=== PATIENT | female | born 1990 | race Caucasian/White ===

== ENCOUNTER 2017-03-04 13:10 | Emergency (ER) | payer OTHER ==
[~2017-03-04] VITALS: Ht 170.2 cm; Wt 81.1 kg
[~2017-03-04 13:10] MED LIST: LEVO1IUD INT UTER
[2017-03-04 13:20] VITALS: TEMP 37.5; Ht 170.2 cm; Wt 81.1 kg
[2017-03-04] MEDS ORDERED: MULT-506 PO (14:26)
[2017-03-04] MEDS ORDERED: FOLI1TAB7 PO (14:26)
[2017-03-04] MEDS ORDERED: IVER5TAB PO (14:55)
--- NOTE | 2017-03-04 14:56 | EMERGENCY ROOM VISIT NOTE ---
History First contact with patient: 14:18 Chief Complaint: RASH Stated Complaint: SKIN RASH ON ABD History of Present Illness The patient is a 26 year old female who presents to the Emergency Room with complaints of a rash on her abdomen. The patient states that she first noticed this this morning. She reports that the area is itchy and rates her discomfort a 1/10. She was seen at [facility] and told to come here for evaluation of a parasitic infection. The patient denies recent travel outside of the country, but did recently travel to [place] and [place]. She has 2 cats at home but states they are indoor cats. She was working outside yesterday, but denies walking barefoot outside. She denies any new medications or environmental exposures. Review of Systems A complete 10 point review of systems was reviewed with the patient with pertinent positives and negatives as per history of present illness. All else were negative. Past Medical/Surgical History Medical Problems: (1) No Known Active Medical Problems Family History Patient reports no known family medical history. Social History Smoking Status: Never Smoker Marital Status: single Occupation Status: employed Current/Historical Medications Scheduled Folic Acid (Folvite), 1 MG PO DAILY Ivermectin (Ivermectin), 6 TABS PO DAILY Multivitamin (Multivitamin), 1 TAB PO DAILY Physical Exam Vital Signs Date Time Temp Pulse Resp B/P (MAP) Pulse Ox O2 Delivery O2 Flow Rate FiO2 03/04/17 14:57 63 16 115/61 98 Room Air 03/04/17 13:20 37.5 80 18 123/78 97 Room Air Physical Exam VITALS: Vitals are noted on the nurse's note and reviewed by myself. Vital signs stable. GENERAL: This is a 26-year-old female, in no acute distress, nondiaphoretic, well-developed well-nourished. SKIN: There is a mildly erythematous, raised serpiginous lesion to the left lower abdomen which measures approximately 4 cm. NEURO: Patient was alert and oriented to person place and time. Medical Decision & Procedures Medical Decision Differential diagnosis includes insect bite, cutaneous larva migraines, allergic reaction, contact dermatitis, among others. The patient is a 26-year-old female who presents today with a serpiginous rash on the left lower abdomen. The patient does not have a clear exposure for CLM, however the appearance is very concerning for this and I do feel she should be treated with a dose of Ivermectin. She will be treated with a one-time dose and was encouraged to follow-up with her primary care provider for a recheck this week to see if she will need any additional treatment. She verbalized understanding of this assessment and treatment plan and was discharged home in good condition. Based on the patient's presentation and work up, I feel the patient is stable for outpatient treatment. The patient was educated to return to the emergency department for any worsening of their current condition or new/concerning symptoms. She will follow up with her PCP. Medication Reconcilliation Current Medication List: was personally reviewed by me Blood Pressure Screening Patient's blood pressure: Normal blood pressure Impression Primary Impression: Cutaneous larva migrans Departure Information Dispostion Home / Self-Care Condition GOOD Prescriptions Ivermectin (Ivermectin) 3 Mg Tab 6 TABS PO DAILY for 1 Day, #6 TABS Prov: Sanam Washburn ., CELESTINA 03/04/17 Referrals Colten Kramer DO (PCP) Patient Instructions [facility] Additional Instructions Take the ivermectin as a one-time dose today. Follow-up with Dr. Kramer this week for a recheck. Return to the emergency department with any worsening or new/concerning symptoms.
[2017-03-04 14:57] VITALS: BP 115/61; PULSE 63; O2SAT 98
== END 2017-03-04 15:05 | disposition home or self-care (01) ==
LOC: C.EDB 13:11
DX: B76.9 Hookworm disease, unspecified (principal)

== ENCOUNTER → 2017-10-21 | Outpatient (CLI) | payer OTHER ==
[~2017-10-21] MED LIST changes: +FOLI1TAB8 PO; +GADAVIST IV PRN; +IVER5TAB PO; -LEVO1IUD INT UTER; +MULT-506 PO
--- NOTE | 2017-10-21 12:35 | DIAGNOSTIC IMAGING REPORT ---
R INJECTION SHOULDER PRE MRI FLUOROSCOPY TIME: 14 seconds CLINICAL HISTORY: 27 years-old Female with RIGHT SHOULDER ARTHROGRAM PRE MRI. Acute right shoulder pain with recent injury PROCEDURE: After obtaining written informed consent, the patient was placed supine on the fluoroscopy table. A suitable site for needle insertion was marked using fluoroscopic guidance. The right shoulder was prepped and draped in the usual sterile fashion. 1% lidocaine was used for skin, subcutaneous and deep soft tissue anesthesia. Under intermittent fluoroscopic guidance, a 22 gauge 1.5 inch needle was inserted into the right glenohumeral joint. A total of 14 cc of one-to-one mixture of dilute Magnevist (0.1 cc in 10 cc saline) and Optiray 300 were injected. The needle was then removed. There were no apparent complications. The patient was transported to MR for further imaging. IMPRESSION: Fluoroscopic-guided right shoulder arthrogram without immediate complication. Total injected volume was 14 cc. MR portion of the examination will be dictated separately. The above report was generated using voice recognition software. It may contain grammatical, syntax or spelling errors. Electronically signed by: Chente Segovia M.D. 10/21/2017 12:34 PM Dictated Date/Time: 10/21/2017 12:32 PM
--- NOTE | 2017-10-21 13:08 | DIAGNOSTIC IMAGING REPORT ---
R UPPER EXT JOINT WITH CLINICAL HISTORY: 27 years-old Female presenting with RIGHT SHOULDER INSTABILITY. TECHNIQUE: Multisequence, multiplanar MR imaging of the right shoulder was performed after the administration of intra-articular contrast. IV contrast: None. COMPARISON: None. FINDINGS: Localizer images: Unremarkable. Bone marrow: Normal bone marrow signal intensity. No bony edema. Articular cartilage: Articular cartilage preserved. Labrum: Blunting and irregularity of the inferior labrum at the level of 6:00. This does not significantly extend anteriorly or posteriorly. No other labral abnormality to suggest focal tear. Biceps and triceps tendons: Long head of the biceps tendon intact, including the biceps-labral complex. Long head of the biceps well seated in the intertubercular groove. Short head of the biceps tendon intact. Long head of the triceps tendon intact. Rotator cuff: Supraspinatus tendon intact. Infraspinatus tendon intact. Teres minor tendon intact. Subscapularis tendon intact. Acromioclavicular joint: Acromioclavicular joint intact. No significant degenerative change. No evidence of an os acromiale. No significant fluid in the subacromial-subdeltoid bursa. Shoulder joint effusion: Expected distention of the glenohumeral joint with intra-articular contrast. No evidence of stripping of the joint capsule. Muscle: Normal muscle bulk and muscle signal intensity. Superficial soft tissue: No subcutaneous edema. IMPRESSION: Blunting and irregularity of the inferior labrum at 6:00 without significant extension anteriorly or posteriorly. This could suggest chronic deformity from prior injury. No convincing evidence of a focal labral tear or other soft tissue abnormality. Electronically signed by: Mckinley Dumont M.D. 10/21/2017 1:07 PM Dictated Date/Time: 10/21/2017 1:00 PM
== END | disposition home or self-care (01) ==
LOC: C.MRIBC 10:48
PROVIDERS: ATTEND Orthopaedic Surgery Sports Medicine
DX: M25.311 Other instability, right shoulder (principal)

== ENCOUNTER → 2018-02-21 | Outpatient (CLI) | payer OTHER ==
[~2018-02-21] MED LIST changes: -GADAVIST IV PRN
== END | disposition home or self-care (01) ==
LOC: C.PAPS 14:23
PROVIDERS: ATTEND Obstetrics & Gynecology
DX: Z01.419 Encounter for gynecological examination (general) (routine) without abnormal findings (principal)

== ENCOUNTER 2019-02-20 07:13 | Inpatient (IN) ==
[2019-02-20] MEDS ORDERED: OXYTOCIN 30 UNITS/500 ML BAG IV PRN ×2 (07:44→12:20)
[2019-02-20] MEDS ORDERED: miSOPROStol 50 MCG TAB SL ONE (07:53)
[2019-02-20 08:04] LABS: Hematocrit (blood only) 35.6 % (37-47); Hemoglobin 11.8 g/dL (12.0-16.0); Mean Corpuscular Volume 91.8 fL (80-100); Mean Platelet Volume 9.7 fL (7.4-10.4); Platelet Count 237 K/uL (130-400); RDW Coefficient of Variation 13.7 % (11.5-14.5); RDW Standard Deviation 44.6 fL (36.4-46.3); Red Blood Count 3.88 M/uL (4.2-5.4); White Blood Count 8.57 K/uL (4.8-10.8)
[2019-02-20] MEDS: LACTATED RINGER'S 1,000 ML IV PRN ×3 (08:26→18:14)
[2019-02-20] MEDS ORDERED: CALCIUM CARBONATE 500 MG CHEWABLE TAB ONE (08:45)
[2019-02-20 08:46] LABS: Mean Corpuscular Hgb Conc 33.1 g/dL (32-36)
--- NOTE | 2019-02-20 09:00 | History & Physical Report ---
Date of Service February 20, 2019 Assessment & Plan (1) Supervision of normal first : 28yo at 41.1 weeks GA. IOL for late term . 1. Fetus: Cat 1 2: Labor: Cervix closed with rare contractions. Will start cervical ripening with Cytotec with augmentation as indicated following 3. Vitals: Stale 4. GBS: neg 5. Rh pos History of Present Illness Primary Care Provider: Colten Kramer 28yo at 41.1 weeks GA. IOL for late term . Reporting Occasional contractions. Denies LOF, VB. Good FM. 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 Beliefs That Will Affect Care: None marital status: Current Living Situation: Spouse Other Information That Helps Us Care for You: No Feels Safe at Home: Yes Safety Concerns: Feels Safe At This Time Smoking Status: Never smoker Do You Dip or Chew Tobacco: No ; Second Hand Exposure: No ; Hx Alcohol Use: No Hx Substance Use: No Physical Exam Gastrointestinal (Abdomen): normal bowel sounds, soft, nontender, no hepatosplenomegaly Genitourinary: Manual OB Exam: + cervical dilation (Closed), + cervical effacement 30% and + station high OB Exam Monitor Tracing: + external FHT monitor used, + external uterine monitor used and + category I Results & Data Vital Signs (Past 12 Hours) Vital Signs Temp Pulse Resp BP 02/20/19 08:52 90 130/85 02/20/19 08:39 89 123/88 02/20/19 08:22 95 H 124/82 02/20/19 07:56 90 131/79 02/20/19 07:37 100 H 127/80 02/20/19 07:36 36.8 C 18
[2019-02-20] MEDS ORDERED: CALCIUM CARBONATE 500 MG CHEWABLE TAB PO PRN (09:51)
--- NOTE | 2019-02-20 12:19 | Labor Progress Brief Note ---
Date of Service February 20, 2019 Subjective Reason For Note: Routine Evaluation patient noting some occas ctx since cytotec. nothing regular. palpably mild per nurse. Assessment & Plan (1) Post term over 40 weeks: (2) Obesity during : will see how bai helps with mechanical dilation. start pitocin. pt agreeable with plan. categ 1 fetus. Physical Exam Constitutional: WD/WN, vitals as above Genitourinary: Manual OB Exam: + cervical dilation (closed, ext os fingertip), + cervical effacement (long) and + station high OB Exam Monitor Tracing: + external FHT monitor used (135 mod variability reactive), + external uterine monitor used (q1-3) and + category I Procedure: given no cx change, rec bai balloon and pitocin and pt agrees. spec placed. cx grasped on anterior lip with ring forcep. bai placed through cx and balloon inflated with 40cc sterile water. spec removed. bai taped to leg. pt ruben well. Results & Data Vital Signs (Past 12 Hours) Vital Signs Temp Pulse Resp BP 02/20/19 12:07 96 H 138/94 02/20/19 11:59 98.2 F 18 02/20/19 09:22 87 132/76 02/20/19 09:08 85 136/78 02/20/19 08:52 90 130/85 02/20/19 08:39 89 123/88 02/20/19 08:22 95 H 124/82 02/20/19 07:56 90 131/79 02/20/19 07:37 100 H 127/80 02/20/19 07:36 98.2 F 18
[2019-02-20] MEDS ORDERED: fentaNYL citrate 100 MCG/2 ML VIAL ONE ×2 (14:45→15:33)
[2019-02-20] MEDS ORDERED: ePHEDrine sulfate 50 MG/ML AMP ONE ×2 (14:45→15:33)
[2019-02-20] MEDS ORDERED: BUPIVACAINE 0.25% 30 ML VIAL ONE ×2 (14:45→15:33)
[2019-02-20] MEDS ORDERED: fentaNYL 2MCG/ML ROPIV 1.25MG/ML 100 ML BAG EPI ONE ×2 (14:46→15:33)
--- NOTE | 2019-02-20 14:48 | Labor Progress Brief Note ---
Date of Service February 20, 2019 Subjective Reason For Note: Routine Evaluation pt noting pain with ctx and request epidural. did feel leak initially after bai placed but no longer. nothing on her pads Assessment & Plan (1) Post term over 40 weeks: (2) Unfavorable cervix in term : bai in place, ctx regular but not palpably strong. pt requests epidural. after comfortable will consider pitocin. pt aware and agreeable. wants epidural now. Physical Exam Constitutional: WD/WN, vitals as above Genitourinary: Manual OB Exam: + cervical dilation (bai balloon in place, no obvious leak. cx ext os 1+ ), + cervical effacement 50% and + station high OB Exam Monitor Tracing: + external FHT monitor used (140 mod variability categ 1), + external uterine monitor used (q2) and + category I Results & Data Vital Signs (Past 12 Hours) Vital Signs Temp Pulse Resp BP 02/20/19 14:00 98.4 F 18 02/20/19 13:48 90 134/84 02/20/19 13:17 88 123/76 02/20/19 12:49 87 137/86 02/20/19 12:07 96 H 138/94 02/20/19 11:59 98.2 F 18 02/20/19 09:22 87 132/76 02/20/19 09:08 85 136/78 02/20/19 08:52 90 130/85 02/20/19 08:39 89 123/88 02/20/19 08:22 95 H 124/82 02/20/19 07:56 90 131/79 02/20/19 07:37 100 H 127/80 02/20/19 07:36 98.2 F 18
[2019-02-20] MEDS ORDERED: NALOXONE HCL 0.4 MG/1 ML VIAL/CARP IV PRN (14:59)
[2019-02-20] MEDS ORDERED: NALBUPHINE HCL INJ 10 MG/ML AMP IV PRN (14:59)
[2019-02-20] MEDS ORDERED: ePHEDrine sulfate 50 MG/ML AMP IV PRN (14:59)
[2019-02-20] MEDS ORDERED: NALOXONE HCL 1 MG in SODIUM CHLORIDE 0.9% 1000ML 1,000 ML IV PRN (14:59)
[2019-02-20] MEDS ORDERED: DiphenhydrAMINE HCL 50 MG/ML VIAL IV PRN (14:59)
[2019-02-20] MEDS ORDERED: ONDANSETRON INJ 2 MG/ML 2 ML VIAL IV PRN (14:59)
--- NOTE | 2019-02-20 15:03 | Anesthesiology Consultation ---
Date of Service February 20, 2019 Assessment & Plan Chart Review Chart Review: Patient NOT seen in Pre Admission Testing and Acceptable Risk for Labor Epidural Consults Requested none ASA ASA2 Proposed Anesthesia Anesthesia Type: Labor Epidural and CSE Risk / Benefits Reviewed With: PT / POA / Parent / Guardian, Accepts Plan and Informed Consent Obtained History Height/Weight Height: 5 ft 7 in Weight: 118.841 kg Allergies Allergy/AdvReac Type Severity Reaction Status Date / Time No Known Allergies Allergy Verified 02/19/19 15:36 Medications Home Medications Medication Instructions Recorded Confirmed Last Taken vit-iron fum-folic ac 1 tab PO DAILY 01/30/19 02/20/19 02/20/19 00:00 [ Vitamin] Active Medications Generic Name Dose Route Start Last Admin Trade Name Freq PRN Reason Stop Dose Admin Lactated Ringer's 1,000 mls @ 125 mls/hr 02/20/19 07:44 02/20/19 14:45 Lr IV 02/22/19 07:43 999 mls/hr .Q8H PRN Infusion L&D Protocol Protocol NPO Date Last Intake of Fluids: 02/20/19 Time Last Intake of Fluids: 13:30 Date Last Intake of Solids: 02/20/19 Time Last Intake of Solids: 06:30 Past Medical History Medical History No known health problems History of breast disorder History of cardiac murmur History of ovarian cyst Exercise / Class Metabolic Activity II 4-5 Yardwork/Stairs/Walk up hill Past Family History Family History Father Dyslipidemia Hypertension Grandfather (Paternal) Bladder cancer Grandmother (Maternal) Colorectal cancer Past Surgical History Surgical History History of wisdom tooth extraction Past Anesthesia History No Hx of Anesthesia Complications and No Family Hx of Anesthesia Complications History of PONV No Hx of PONV and No Hx of Motion Sickness Social History Smoking Status: Never smoker Do You Dip or Chew Tobacco: No Hx Alcohol Use: No Hx Substance Use: No substance use type: does not use Review of Systems no chest pain or sob Physical Exam Vital Signs Last Vital Signs Temp 36.9 C 02/20/19 14:00 Pulse 93 H 02/20/19 15:00 Resp 18 02/20/19 14:00 BP 134/84 02/20/19 13:48 Pulse Ox 95 02/20/19 15:00 ENMT Mouth: no TMJ abnormality Thyromental Distance: > or= 3.5 Finger Breadths Mallampati Class: II Neck normal visual inspection Respiratory normal respiratory effort Auscultation: lungs clear to auscultation bilaterally Cardiovascular Rate/Rhythm: regular rate and regular rhythm Musculoskeletal Spine: normal cervical ROM Neurologic moves all extremities Psychiatric Orientation: alert and oriented x 3 Testing Laboratory Results 02/20/19 07:53
[2019-02-20] MEDS: fentaNYL 2MCG/ML ROPIV 1.25MG/ML 100 ML BAG EPI PRN (22:49)
[2019-02-21] MEDS: LACTATED RINGER'S 1,000 ML IV PRN ×4 (02:19→16:21)
[2019-02-21] MEDS ORDERED: Nursing to Pharmacy Communication ONE (04:20)
[2019-02-21] MEDS ORDERED: BUPIVACAINE 0.25% 30 ML VIAL ONE ×2 (04:49→17:47)
[2019-02-21] MEDS: fentaNYL 2MCG/ML ROPIV 1.25MG/ML 100 ML BAG EPI PRN ×2 (05:14→10:42)
--- NOTE | 2019-02-21 08:37 | Labor Progress Brief Note ---
Date of Service February 21, 2019 Subjective Reason For Note: Routine Evaluation Current Pain Level(1-10): 3 Doing well. Review labor plan. Jade in place Assessment & Plan (1) Post term over 40 weeks: 28yo G1 at 41.1 weeks GA. IOL for post dates 1.Fetus: Cat 1 2. Labor: Pit/Jade. 3. Vitals: WNL 4. GBS neg 5. Rh pos (2) Supervision of normal first : Results & Data Vital Signs (Past 12 Hours) Vital Signs Temp Pulse Resp BP Pulse Ox 02/21/19 08:30 106 H 96 02/21/19 08:27 93 H 116/57 L 02/21/19 08:25 99 H 96 02/21/19 08:20 94 H 96 02/21/19 08:15 103 H 96 02/21/19 08:10 101 H 96 02/21/19 08:05 95 H 96 02/21/19 08:00 87 97 02/21/19 07:55 90 97 02/21/19 07:50 98 H 96 02/21/19 07:45 83 97 02/21/19 07:40 86 95 02/21/19 07:35 85 95 02/21/19 07:30 84 96 02/21/19 07:25 82 96 02/21/19 07:20 88 96 02/21/19 07:15 86 96 02/21/19 07:14 87 118/56 L 02/21/19 07:10 87 97 02/21/19 07:05 94 H 96 02/21/19 07:00 36.7 C 86 20 96 02/21/19 06:55 95 H 97 02/21/19 06:50 86 96 02/21/19 06:45 82 96 02/21/19 06:42 93 H 130/74 02/21/19 06:40 95 H 96 02/21/19 06:35 91 H 94 02/21/19 06:30 85 94 02/21/19 06:28 88 132/77 02/21/19 06:25 90 95 02/21/19 06:20 87 95 02/21/19 06:15 88 95 02/21/19 06:13 88 129/65 02/21/19 06:10 86 95 02/21/19 06:05 85 95 02/21/19 06:00 86 95 02/21/19 05:58 82 16 121/74 02/21/19 05:55 86 95 02/21/19 05:50 82 95 02/21/19 05:45 87 95 02/21/19 05:42 81 118/78 02/21/19 05:40 79 95 02/21/19 05:35 92 H 96 02/21/19 05:30 92 H 96 02/21/19 05:27 101 H 16 107/58 L 02/21/19 05:25 100 H 97 02/21/19 05:20 126 H 109/56 L 94 02/21/19 05:18 105 H 88 L 02/21/19 05:15 93 H 95 02/21/19 05:14 92 H 18 122/62 02/21/19 05:12 80 130/62 02/21/19 05:10 73 130/62 94 02/21/19 05:08 75 127/60 02/21/19 05:06 85 128/61 02/21/19 05:05 77 94 02/21/19 05:04 83 129/63 02/21/19 05:03 92 H 133/66 02/21/19 05:00 96 H 131/83 95 02/21/19 04:55 85 96 02/21/19 04:54 86 129/86 02/21/19 04:50 84 94 02/21/19 04:45 93 H 98 02/21/19 04:40 85 133/86 98 02/21/19 04:35 83 98 02/21/19 04:30 73 95 02/21/19 04:26 92 H 90 02/21/19 04:25 81 95 02/21/19 04:24 80 125/86 02/21/19 04:22 36.8 C 20 02/21/19 04:20 87 94 02/21/19 04:18 89 90 02/21/19 04:15 87 94 02/21/19 04:10 92 H 152/81 H 96 02/21/19 04:05 101 H 97 02/21/19 04:00 90 95 02/21/19 03:55 84 135/85 96 02/21/19 03:50 83 95 02/21/19 03:45 93 H 95 02/21/19 03:40 91 H 129/76 95 08/10/19 03:35 85 95 02/21/19 03:30 97 H 95 02/21/19 03:25 82 95 02/21/19 03:24 83 135/75 02/21/19 03:20 88 95 02/21/19 03:15 91 H 95 02/21/19 03:10 103 H 95 02/21/19 03:09 96 H 18 140/80 02/21/19 03:05 98 H 95 02/21/19 03:00 94 H 95 02/21/19 02:55 93 H 95 02/21/19 02:53 91 H 129/73 02/21/19 02:50 88 94 02/21/19 02:45 84 94 02/21/19 02:40 87 95 02/21/19 02:39 84 128/74 02/21/19 02:35 100 H 96 02/21/19 02:30 86 96 02/21/19 02:25 88 126/77 96 02/21/19 02:20 84 96 02/21/19 02:15 85 96 02/21/19 02:10 87 96 02/21/19 02:08 91 H 123/70 02/21/19 02:05 82 97 02/21/19 02:00 92 H 96 02/21/19 01:55 92 H 98 02/21/19 01:54 77 125/80 02/21/19 01:53 37.0 C 18 02/21/19 01:50 93 H 95 02/21/19 01:45 80 96 02/21/19 01:40 87 97 02/21/19 01:38 87 122/75 02/21/19 01:35 86 96 02/21/19 01:30 85 96 02/21/19 01:25 83 122/75 96 02/21/19 01:20 88 96 02/21/19 01:15 89 96 02/21/19 01:10 82 97 02/21/19 01:09 84 16 113/68 02/21/19 01:05 81 97 02/21/19 01:00 92 H 97 02/21/19 00:55 81 97 02/21/19 00:53 86 16 131/76 02/21/19 00:50 88 97 02/21/19 00:45 84 98 02/21/19 00:40 82 96 02/21/19 00:39 76 133/75 02/21/19 00:35 86 96 02/21/19 00:30 88 95 02/21/19 00:25 78 134/76 96 02/21/19 00:20 76 95 02/21/19 00:15 79 95 02/21/19 00:10 82 96 02/21/19 00:09 78 127/72 02/21/19 00:05 84 96 02/21/19 00:00 85 96 02/20/19 23:55 89 96 02/20/19 23:54 77 131/77 02/20/19 23:50 79 95 02/20/19 23:45 88 94 02/20/19 23:40 80 95 02/20/19 23:39 76 134/73 02/20/19 23:35 93 H 95 02/20/19 23:30 81 95 02/20/19 23:25 82 95 02/20/19 23:23 88 121/67 02/20/19 23:20 79 95 02/20/19 23:15 80 94 02/20/19 23:10 85 95 02/20/19 23:09 80 123/67 02/20/19 23:05 81 95 02/20/19 23:00 78 96 02/20/19 22:55 86 126/77 95 02/20/19 22:50 93 H 95 02/20/19 22:46 36.8 C 18 02/20/19 22:45 86 95 02/20/19 22:40 86 96 02/20/19 22:39 89 121/60 02/20/19 22:35 86 95 02/20/19 22:30 88 95 02/20/19 22:25 87 95 02/20/19 22:24 80 130/82 02/20/19 22:20 88 95 02/20/19 22:15 83 94 02/20/19 22:10 97 H 95 02/20/19 22:08 89 16 134/74 02/20/19 22:05 76 95 02/20/19 22:00 97 H 95 02/20/19 21:55 97 H 96 02/20/19 21:54 80 135/79 02/20/19 21:50 85 97 02/20/19 21:45 99 H 97 08/09/19 21:42 36.9 C 18 02/20/19 21:40 80 94 02/20/19 21:39 90 117/70 02/20/19 21:35 79 95 02/20/19 21:30 85 94 02/20/19 21:25 80 94 02/20/19 21:23 88 112/67 02/20/19 21:20 86 95 02/20/19 21:15 78 94 02/20/19 21:10 81 94 02/20/19 21:09 82 112/69 02/20/19 21:05 99 H 95 02/20/19 21:00 95 H 96 02/20/19 20:55 88 96 02/20/19 20:53 89 126/80 02/20/19 20:50 84 94 02/20/19 20:45 86 95 02/20/19 20:40 88 94 02/20/19 20:39 85 16 127/78 02/20/19 20:35 100 H 96
--- NOTE | 2019-02-21 09:26 | Labor Progress Brief Note ---
Date of Service February 21, 2019 Subjective Reason For Note: Routine Evaluation comfortable. notes had rebolus at 3am but now comfortable. Assessment & Plan (1) Post term over 40 weeks: (2) Encounter for induction of labor: bai balloon removed. arom done, pit continues. will see how arom augments pattern. categ 1 fetus. Physical Exam Constitutional: WD/WN, vitals as above Genitourinary: Manual OB Exam: + cervical dilation 4 cm, + cervical effacement 80%, + station -2 and + amniotic fluid (AROM) clear OB Exam Monitor Tracing: + external FHT monitor used (145 mod variability), + external uterine monitor used (q2-3), + category I and + normal FHT variability Results & Data Vital Signs (Past 12 Hours) Vital Signs Temp Pulse Resp BP Pulse Ox 02/21/19 09:20 110 H 96 02/21/19 09:15 98 H 94 02/21/19 09:12 96 H 122/67 02/21/19 09:10 96 H 94 02/21/19 09:05 90 95 02/21/19 09:00 101 H 96 02/21/19 08:58 98.4 F 93 H 16 120/73 02/21/19 08:55 101 H 96 02/21/19 08:50 96 H 95 02/21/19 08:45 96 H 97 02/21/19 08:44 98 H 125/78 02/21/19 08:40 96 H 96 02/21/19 08:35 94 H 96 02/21/19 08:30 106 H 96 02/21/19 08:27 93 H 116/57 L 02/21/19 08:25 99 H 96 02/21/19 08:20 94 H 96 02/21/19 08:15 103 H 96 02/21/19 08:10 101 H 96 02/21/19 08:05 95 H 96 02/21/19 08:00 87 97 02/21/19 07:55 90 97 02/21/19 07:50 98 H 96 02/21/19 07:45 83 97 02/21/19 07:40 86 95 02/21/19 07:35 85 95 02/21/19 07:30 84 96 02/21/19 07:25 82 96 02/21/19 07:20 88 96 02/21/19 07:15 86 96 02/21/19 07:14 87 118/56 L 02/21/19 07:10 87 97 02/21/19 07:05 94 H 96 02/21/19 07:00 98.1 F 86 20 96 02/21/19 06:55 95 H 97 02/21/19 06:50 86 96 02/21/19 06:45 82 96 02/21/19 06:42 93 H 130/74 02/21/19 06:40 95 H 96 02/21/19 06:35 91 H 94 02/21/19 06:30 85 94 02/21/19 06:28 88 132/77 02/21/19 06:25 90 95 02/21/19 06:20 87 95 02/21/19 06:15 88 95 02/21/19 06:13 88 129/65 02/21/19 06:10 86 95 02/21/19 06:05 85 95 02/21/19 06:00 86 95 02/21/19 05:58 82 16 121/74 02/21/19 05:55 86 95 02/21/19 05:50 82 95 02/21/19 05:45 87 95 02/21/19 05:42 81 118/78 02/21/19 05:40 79 95 02/21/19 05:35 92 H 96 02/21/19 05:30 92 H 96 02/21/19 05:27 101 H 16 107/58 L 02/21/19 05:25 100 H 97 02/21/19 05:20 126 H 109/56 L 94 02/21/19 05:18 105 H 88 L 02/21/19 05:15 93 H 95 02/21/19 05:14 92 H 18 122/62 02/21/19 05:12 80 130/62 02/21/19 05:10 73 130/62 94 02/21/19 05:08 75 127/60 02/21/19 05:06 85 128/61 02/21/19 05:05 77 94 02/21/19 05:04 83 129/63 02/21/19 05:03 92 H 133/66 02/21/19 05:00 96 H 131/83 95 02/21/19 04:55 85 96 02/21/19 04:54 86 129/86 02/21/19 04:50 84 94 02/21/19 04:45 93 H 98 02/21/19 04:40 85 133/86 98 02/21/19 04:35 83 98 02/21/19 04:30 73 95 02/21/19 04:26 92 H 90 02/21/19 04:25 81 95 02/21/19 04:24 80 125/86 02/21/19 04:22 98.2 F 20 02/21/19 04:20 87 94 02/21/19 04:18 89 90 02/21/19 04:15 87 94 02/21/19 04:10 92 H 152/81 H 96 02/21/19 04:05 101 H 97 02/21/19 04:00 90 95 02/21/19 03:55 84 135/85 96 02/21/19 03:50 83 95 02/21/19 03:45 93 H 95 02/21/19 03:40 91 H 129/76 95 02/21/19 03:35 85 95 02/21/19 03:30 97 H 95 02/21/19 03:25 82 95 02/21/19 03:24 83 135/75 02/21/19 03:20 88 95 02/21/19 03:15 91 H 95 02/21/19 03:10 103 H 95 02/21/19 03:09 96 H 18 140/80 02/21/19 03:05 98 H 95 02/21/19 03:00 94 H 95 02/21/19 02:55 93 H 95 02/21/19 02:53 91 H 129/73 02/21/19 02:50 88 94 02/21/19 02:45 84 94 02/21/19 02:40 87 95 02/21/19 02:39 84 128/74 02/21/19 02:35 100 H 96 02/21/19 02:30 86 96 02/21/19 02:25 88 126/77 96 02/21/19 02:20 84 96 02/21/19 02:15 85 96 02/21/19 02:10 87 96 02/21/19 02:08 91 H 123/70 02/21/19 02:05 82 97 02/21/19 02:00 92 H 96 02/21/19 01:55 92 H 98 02/21/19 01:54 77 125/80 02/21/19 01:53 98.6 F 18 02/21/19 01:50 93 H 95 02/21/19 01:45 80 96 02/21/19 01:40 87 97 02/21/19 01:38 87 122/75 02/21/19 01:35 86 96 02/21/19 01:30 85 96 02/21/19 01:25 83 122/75 96 02/21/19 01:20 88 96 02/21/19 01:15 89 96 02/21/19 01:10 82 97 02/21/19 01:09 84 16 113/68 02/21/19 01:05 81 97 02/21/19 01:00 92 H 97 02/21/19 00:55 81 97 02/21/19 00:53 86 16 131/76 02/21/19 00:50 88 97 02/21/19 00:45 84 98 02/21/19 00:40 82 96 02/21/19 00:39 76 133/75 02/21/19 00:35 86 96 02/21/19 00:30 88 95 02/21/19 00:25 78 134/76 96 02/21/19 00:20 76 95 02/21/19 00:15 79 95 02/21/19 00:10 82 96 02/21/19 00:09 78 127/72 02/21/19 00:05 84 96 02/21/19 00:00 85 96 02/20/19 23:55 89 96 02/20/19 23:54 77 131/77 02/20/19 23:50 79 95 02/20/19 23:45 88 94 02/20/19 23:40 80 95 02/20/19 23:39 76 134/73 02/20/19 23:35 93 H 95 02/20/19 23:30 81 95 02/20/19 23:25 82 95 02/20/19 23:23 88 121/67 02/20/19 23:20 79 95 02/20/19 23:15 80 94 02/20/19 23:10 85 95 02/20/19 23:09 80 123/67 02/20/19 23:05 81 95 02/20/19 23:00 78 96 02/20/19 22:55 86 126/77 95 02/20/19 22:50 93 H 95 02/20/19 22:46 98.2 F 18 02/20/19 22:45 86 95 02/20/19 22:40 86 96 02/20/19 22:39 89 121/60 02/20/19 22:35 86 95 02/20/19 22:30 88 95 02/20/19 22:25 87 95 02/20/19 22:24 80 130/82 02/20/19 22:20 88 95 02/20/19 22:15 83 94 02/20/19 22:10 97 H 95 02/20/19 22:08 89 16 134/74 02/20/19 22:05 76 95 02/20/19 22:00 97 H 95 02/20/19 21:55 97 H 96 02/20/19 21:54 80 135/79 02/20/19 21:50 85 97 02/20/19 21:45 99 H 97 02/20/19 21:42 98.4 F 18 02/20/19 21:40 80 94 02/20/19 21:39 90 117/70 02/20/19 21:35 79 95 02/20/19 21:30 85 94 02/20/19 21:25 80 94
--- NOTE | 2019-02-21 11:43 | Labor Progress Brief Note ---
Date of Service February 21, 2019 Subjective Reason For Note: Requested By RN pt feeling pressure. rectal pressure Assessment & Plan (1) Post term over 40 weeks: (2) Encounter for induction of labor: c/w pit, use iupc mvu's to help guide pitocin. try to get comfortable with pain mgmt. fhts categ 1, +scalp stim response. Physical Exam Constitutional: WD/WN, vitals as above Genitourinary: Manual OB Exam: + cervical dilation (4-5), + cervical effacement (75) and + station -2 OB Exam Monitor Tracing: + external FHT monitor used (140 mod variability), + external uterine monitor used (q2 pit at 11), + intra-uterine pressure catheter used (placed. ) and + category I Results & Data Vital Signs (Past 12 Hours) Vital Signs Temp Pulse Resp BP Pulse Ox 02/21/19 11:35 98 H 97 02/21/19 11:30 128 H 95 02/21/19 11:29 116 H 141/87 H 02/21/19 11:25 120 H 95 02/21/19 11:20 117 H 95 02/21/19 11:15 122 H 96 02/21/19 11:14 123 H 133/86 02/21/19 11:10 134 H 96 02/21/19 11:05 105 H 95 02/21/19 11:00 91 H 94 02/21/19 10:58 96 H 131/78 02/21/19 10:55 92 H 95 02/21/19 10:50 93 H 95 02/21/19 10:45 96 H 132/80 95 02/21/19 10:44 98.4 F 02/21/19 10:40 92 H 95 02/21/19 10:35 103 H 96 02/21/19 10:30 89 94 02/21/19 10:25 84 93 02/21/19 10:20 91 H 93 02/21/19 10:15 87 94 02/21/19 10:10 88 93 02/21/19 10:05 94 H 94 02/21/19 10:00 94 H 93 02/21/19 09:57 102 H 117/67 02/21/19 09:55 92 H 94 02/21/19 09:50 96 H 93 02/21/19 09:45 103 H 95 02/21/19 09:44 99 H 115/68 02/21/19 09:40 102 H 95 02/21/19 09:35 98 H 94 02/21/19 09:30 93 H 94 02/21/19 09:27 103 H 116/64 02/21/19 09:25 103 H 96 02/21/19 09:20 110 H 96 02/21/19 09:15 98 H 94 02/21/19 09:12 96 H 122/67 02/21/19 09:10 96 H 94 02/21/19 09:05 90 95 02/21/19 09:00 101 H 96 02/21/19 08:58 98.4 F 93 H 16 120/73 02/21/19 08:55 101 H 96 02/21/19 08:50 96 H 95 02/21/19 08:45 96 H 97 02/21/19 08:44 98 H 125/78 02/21/19 08:40 96 H 96 02/21/19 08:35 94 H 96 02/21/19 08:30 106 H 96 02/21/19 08:27 93 H 116/57 L 02/21/19 08:25 99 H 96 02/21/19 08:20 94 H 96 02/21/19 08:15 103 H 96 02/21/19 08:10 101 H 96 02/21/19 08:05 95 H 96 02/21/19 08:00 87 97 02/21/19 07:55 90 97 02/21/19 07:50 98 H 96 02/21/19 07:45 83 97 02/21/19 07:40 86 95 02/21/19 07:35 85 95 02/21/19 07:30 84 96 02/21/19 07:25 82 96 02/21/19 07:20 88 96 02/21/19 07:15 86 96 02/21/19 07:14 87 118/56 L 02/21/19 07:10 87 97 02/21/19 07:05 94 H 96 02/21/19 07:00 98.1 F 86 20 96 02/21/19 06:55 95 H 97 02/21/19 06:50 86 96 02/21/19 06:45 82 96 02/21/19 06:42 93 H 130/74 02/21/19 06:40 95 H 96 02/21/19 06:35 91 H 94 02/21/19 06:30 85 94 02/21/19 06:28 88 132/77 02/21/19 06:25 90 95 02/21/19 06:20 87 95 02/21/19 06:15 88 95 02/21/19 06:13 88 129/65 02/21/19 06:10 86 95 02/21/19 06:05 85 95 02/21/19 06:00 86 95 02/21/19 05:58 82 16 121/74 02/21/19 05:55 86 95 02/21/19 05:50 82 95 02/21/19 05:45 87 95 02/21/19 05:42 81 118/78 02/21/19 05:40 79 95 02/21/19 05:35 92 H 96 02/21/19 05:30 92 H 96 02/21/19 05:27 101 H 16 107/58 L 02/21/19 05:25 100 H 97 02/21/19 05:20 126 H 109/56 L 94 02/21/19 05:18 105 H 88 L 02/21/19 05:15 93 H 95 02/21/19 05:14 92 H 18 122/62 02/21/19 05:12 80 130/62 02/21/19 05:10 73 130/62 94 02/21/19 05:08 75 127/60 02/21/19 05:06 85 128/61 02/21/19 05:05 77 94 02/21/19 05:04 83 129/63 02/21/19 05:03 92 H 133/66 02/21/19 05:00 96 H 131/83 95 02/21/19 04:55 85 96 02/21/19 04:54 86 129/86 02/21/19 04:50 84 94 02/21/19 04:45 93 H 98 02/21/19 04:40 85 133/86 98 02/21/19 04:35 83 98 02/21/19 04:30 73 95 02/21/19 04:26 92 H 90 02/21/19 04:25 81 95 02/21/19 04:24 80 125/86 02/21/19 04:22 98.2 F 20 02/21/19 04:20 87 94 02/21/19 04:18 89 90 02/21/19 04:15 87 94 02/21/19 04:10 92 H 152/81 H 96 02/21/19 04:05 101 H 97 02/21/19 04:00 90 95 02/21/19 03:55 84 135/85 96 02/21/19 03:50 83 95 02/21/19 03:45 93 H 95 02/21/19 03:40 91 H 129/76 95 02/21/19 03:35 85 95 02/21/19 03:30 97 H 95 02/21/19 03:25 82 95 02/21/19 03:24 83 135/75 02/21/19 03:20 88 95 02/21/19 03:15 91 H 95 02/21/19 03:10 103 H 95 02/21/19 03:09 96 H 18 140/80 02/21/19 03:05 98 H 95 02/21/19 03:00 94 H 95 02/21/19 02:55 93 H 95 02/21/19 02:53 91 H 129/73 02/21/19 02:50 88 94 02/21/19 02:45 84 94 02/21/19 02:40 87 95 02/21/19 02:39 84 128/74 02/21/19 02:35 100 H 96 02/21/19 02:30 86 96 02/21/19 02:25 88 126/77 96 02/21/19 02:20 84 96 02/21/19 02:15 85 96 02/21/19 02:10 87 96 02/21/19 02:08 91 H 123/70 02/21/19 02:05 82 97 02/21/19 02:00 92 H 96 02/21/19 01:55 92 H 98 02/21/19 01:54 77 125/80 02/21/19 01:53 98.6 F 18 02/21/19 01:50 93 H 95 02/21/19 01:45 80 96 02/21/19 01:40 87 97 02/21/19 01:38 87 122/75 02/21/19 01:35 86 96 02/21/19 01:30 85 96 02/21/19 01:25 83 122/75 96 02/21/19 01:20 88 96 02/21/19 01:15 89 96 02/21/19 01:10 82 97 02/21/19 01:09 84 16 113/68 02/21/19 01:05 81 97 02/21/19 01:00 92 H 97 02/21/19 00:55 81 97 02/21/19 00:53 86 16 131/76 02/21/19 00:50 88 97 02/21/19 00:45 84 98 02/21/19 00:40 82 96 02/21/19 00:39 76 133/75 02/21/19 00:35 86 96 02/21/19 00:30 88 95 02/21/19 00:25 78 134/76 96 02/21/19 00:20 76 95 02/21/19 00:15 79 95 02/21/19 00:10 82 96 02/21/19 00:09 78 127/72 02/21/19 00:05 84 96 02/21/19 00:00 85 96 02/20/19 23:55 89 96 02/20/19 23:54 77 131/77 02/20/19 23:50 79 95 02/20/19 23:45 88 94
[2019-02-21] MEDS ORDERED: fentaNYL 2MCG/ML ROPIV 1.25MG/ML 100 ML BAG EPI ONE (15:36)
--- NOTE | 2019-02-21 15:37 | Labor Progress Brief Note ---
Date of Service February 21, 2019 Subjective Reason For Note: Routine Evaluation no pain or pressure complaints. Assessment & Plan (1) Post term over 40 weeks: (2) Encounter for induction of labor: c/w pit, needs pit increased to keep mvu's adequate. then will consider reexam of cx. Physical Exam Constitutional: WD/WN, vitals as above Genitourinary: OB Exam Monitor Tracing: + external FHT monitor used (145 mod variability, ), + intra-uterine pressure catheter used (mvu's inadequate) and + category I Results & Data Vital Signs (Past 12 Hours) Vital Signs Temp Pulse Resp BP Pulse Ox 02/21/19 15:34 95 H 124/58 L 02/21/19 15:30 92 H 95 02/21/19 15:29 85 91 02/21/19 15:25 96 H 94 02/21/19 15:22 87 91 02/21/19 15:20 92 H 118/67 92 02/21/19 15:15 88 91 02/21/19 15:12 86 91 02/21/19 15:10 88 90 02/21/19 15:07 85 91 02/21/19 15:05 95 H 94 02/21/19 15:04 86 121/59 L 02/21/19 15:00 86 91 02/21/19 14:57 83 91 02/21/19 14:55 83 92 02/21/19 14:50 83 111/56 L 93 02/21/19 14:45 86 93 02/21/19 14:40 84 92 02/21/19 14:35 78 93 02/21/19 14:33 82 105/56 L 02/21/19 14:30 81 95 02/21/19 14:27 99 H 91 02/21/19 14:25 85 95 02/21/19 14:20 90 93 02/21/19 14:19 88 106/55 L 02/21/19 14:15 102 H 96 02/21/19 14:10 97 H 95 02/21/19 14:05 98 H 95 02/21/19 14:02 96 H 115/54 L 02/21/19 14:00 101 H 93 02/21/19 13:59 94 H 125/60 02/21/19 13:56 100 H 113/58 L 02/21/19 13:55 104 H 95 02/21/19 13:53 96 H 121/56 L 88 L 02/21/19 13:50 99 H 20 116/58 L 94 02/21/19 13:48 110 H 124/76 87 L 02/21/19 13:45 102 H 95 02/21/19 13:40 86 93 02/21/19 13:35 88 93 02/21/19 13:33 91 H 134/68 02/21/19 13:30 82 93 02/21/19 13:25 86 93 02/21/19 13:20 84 94 02/21/19 13:18 86 130/68 02/21/19 13:15 97 H 96 02/21/19 13:10 76 94 02/21/19 13:05 75 93 02/21/19 13:02 74 20 115/66 02/21/19 13:00 74 93 02/21/19 12:55 73 93 02/21/19 12:50 84 95 02/21/19 12:48 99.0 F 76 20 124/66 02/21/19 12:45 88 94 02/21/19 12:40 85 95 02/21/19 12:35 81 95 02/21/19 12:32 87 109/59 L 02/21/19 12:30 86 95 02/21/19 12:25 85 96 02/21/19 12:20 83 97 02/21/19 12:16 86 101/56 L 02/21/19 12:15 85 95 02/21/19 12:10 89 95 02/21/19 12:05 98 H 96 02/21/19 12:01 99 H 18 105/61 02/21/19 12:00 100 H 95 02/21/19 11:58 109 H 127/73 02/21/19 11:55 106 H 139/71 94 02/21/19 11:52 103 H 134/65 02/21/19 11:50 105 H 96 02/21/19 11:49 110 H 142/77 H 02/21/19 11:46 93 H 147/81 H 02/21/19 11:45 90 95 02/21/19 11:42 89 137/70 02/21/19 11:40 91 H 96 02/21/19 11:35 98 H 97 02/21/19 11:30 128 H 95 02/21/19 11:29 116 H 141/87 H 02/21/19 11:25 120 H 95 02/21/19 11:20 117 H 95 02/21/19 11:15 122 H 96 02/21/19 11:14 123 H 133/86 02/21/19 11:10 134 H 96 02/21/19 11:05 105 H 95 02/21/19 11:00 91 H 94 02/21/19 10:58 96 H 20 131/78 02/21/19 10:55 92 H 95 02/21/19 10:50 93 H 95 02/21/19 10:45 96 H 132/80 95 02/21/19 10:44 98.4 F 02/21/19 10:40 92 H 95 02/21/19 10:35 103 H 96 02/21/19 10:30 89 94 02/21/19 10:25 84 93 02/21/19 10:20 91 H 93 02/21/19 10:15 87 94 02/21/19 10:10 88 93 02/21/19 10:05 94 H 94 02/21/19 10:00 94 H 93 02/21/19 09:57 102 H 20 117/67 02/21/19 09:55 92 H 94 02/21/19 09:50 96 H 93 02/21/19 09:45 103 H 95 02/21/19 09:44 99 H 115/68 02/21/19 09:40 102 H 95 02/21/19 09:35 98 H 94 02/21/19 09:30 93 H 94 02/21/19 09:27 103 H 116/64 02/21/19 09:25 103 H 96 02/21/19 09:20 110 H 96 02/21/19 09:15 98 H 94 02/21/19 09:12 96 H 122/67 02/21/19 09:10 96 H 94 02/21/19 09:05 90 95 02/21/19 09:00 101 H 96 02/21/19 08:58 98.4 F 93 H 16 120/73 02/21/19 08:55 101 H 96 02/21/19 08:50 96 H 95 02/21/19 08:45 96 H 97 02/21/19 08:44 98 H 125/78 02/21/19 08:40 96 H 96 02/21/19 08:35 94 H 96 02/21/19 08:30 106 H 96 02/21/19 08:27 93 H 116/57 L 02/21/19 08:25 99 H 96 02/21/19 08:20 94 H 96 02/21/19 08:15 103 H 96 02/21/19 08:10 101 H 96 02/21/19 08:05 95 H 96 02/21/19 08:00 87 97 02/21/19 07:55 90 97 02/21/19 07:50 98 H 96 02/21/19 07:45 83 97 02/21/19 07:40 86 95 02/21/19 07:35 85 95 02/21/19 07:30 84 96 02/21/19 07:25 82 96 02/21/19 07:20 88 96 02/21/19 07:15 86 96 02/21/19 07:14 87 118/56 L 02/21/19 07:10 87 97 02/21/19 07:05 94 H 96 02/21/19 07:00 98.1 F 86 20 96 02/21/19 06:55 95 H 97 02/21/19 06:50 86 96 02/21/19 06:45 82 96 02/21/19 06:42 93 H 130/74 02/21/19 06:40 95 H 96 02/21/19 06:35 91 H 94 02/21/19 06:30 85 94 02/21/19 06:28 88 132/77 02/21/19 06:25 90 95 02/21/19 06:20 87 95 02/21/19 06:15 88 95 02/21/19 06:13 88 129/65 02/21/19 06:10 86 95 02/21/19 06:05 85 95 02/21/19 06:00 86 95 02/21/19 05:58 82 16 121/74 02/21/19 05:55 86 95 02/21/19 05:50 82 95 02/21/19 05:45 87 95 02/21/19 05:42 81 118/78 02/21/19 05:40 79 95 02/21/19 05:35 92 H 96 02/21/19 05:30 92 H 96 02/21/19 05:27 101 H 16 107/58 L 02/21/19 05:25 100 H 97 02/21/19 05:20 126 H 109/56 L 94 02/21/19 05:18 105 H 88 L 02/21/19 05:15 93 H 95 02/21/19 05:14 92 H 18 122/62 02/21/19 05:12 80 130/62 02/21/19 05:10 73 130/62 94 02/21/19 05:08 75 127/60 02/21/19 05:06 85 128/61 02/21/19 05:05 77 94 02/21/19 05:04 83 129/63 02/21/19 05:03 92 H 133/66 02/21/19 05:00 96 H 131/83 95 02/21/19 04:55 85 96 02/21/19 04:54 86 129/86 02/21/19 04:50 84 94 02/21/19 04:45 93 H 98 02/21/19 04:40 85 133/86 98 02/21/19 04:35 83 98 02/21/19 04:30 73 95 02/21/19 04:26 92 H 90 02/21/19 04:25 81 95 02/21/19 04:24 80 125/86 02/21/19 04:22 98.2 F 20 02/21/19 04:20 87 94 02/21/19 04:18 89 90 02/21/19 04:15 87 94 02/21/19 04:10 92 H 152/81 H 96 02/21/19 04:05 101 H 97 02/21/19 04:00 90 95 02/21/19 03:55 84 135/85 96 02/21/19 03:50 83 95 02/21/19 03:45 93 H 95 02/21/19 03:40 91 H 129/76 95
--- NOTE | 2019-02-21 17:19 | Labor Progress Brief Note ---
Date of Service February 21, 2019 Subjective Reason For Note: Routine Evaluation feeling comfortable Assessment & Plan (1) Post term over 40 weeks: (2) Encounter for induction of labor: c/w pit. fhts categ 1, per nurse occas late decels that are preventing her from raising pitocin but current fhts are categ 1. explained to pt and family would rec cx exam when mvu's adeq x 2hr, may need to check sooner. may need to consider cutting pit in half and restarting. pt aware, i was also informed of poor urine output by nursing. may need to check labs if persists. apparently very concentrated. Physical Exam Constitutional: WD/WN, vitals as above Genitourinary: OB Exam Monitor Tracing: + external FHT monitor used (145 mod variability), + intra-uterine pressure catheter used (pit at 19, mvu's inadequate) and + category I Results & Data Vital Signs (Past 12 Hours) Vital Signs Temp Pulse Resp BP Pulse Ox 02/21/19 17:10 100 H 95 02/21/19 17:05 92 H 95 02/21/19 17:04 96 H 123/67 02/21/19 17:00 97 H 95 02/21/19 16:55 99 H 96 02/21/19 16:50 103 H 141/72 H 95 02/21/19 16:45 93 H 95 02/21/19 16:40 102 H 95 02/21/19 16:35 91 H 125/65 93 02/21/19 16:30 101 H 93 02/21/19 16:25 86 92 02/21/19 16:20 91 H 90 02/21/19 16:19 90 128/73 90 02/21/19 16:15 110 H 93 02/21/19 16:12 99 H 91 02/21/19 16:10 105 H 95 02/21/19 16:05 102 H 134/78 93 02/21/19 16:00 98.2 F 99 H 93 02/21/19 15:55 97 H 96 02/21/19 15:50 102 H 125/60 98 02/21/19 15:45 106 H 98 02/21/19 15:41 103 H 90 02/21/19 15:40 99 H 96 02/21/19 15:35 95 H 96 02/21/19 15:34 95 H 124/58 L 02/21/19 15:30 92 H 95 02/21/19 15:29 85 91 02/21/19 15:25 96 H 94 02/21/19 15:22 87 91 02/21/19 15:20 92 H 118/67 92 02/21/19 15:15 88 91 02/21/19 15:12 86 91 02/21/19 15:10 88 90 02/21/19 15:07 85 91 02/21/19 15:05 95 H 94 02/21/19 15:04 86 121/59 L 02/21/19 15:00 86 91 02/21/19 14:57 83 91 02/21/19 14:55 83 92 02/21/19 14:50 83 111/56 L 93 02/21/19 14:45 86 93 02/21/19 14:40 84 92 02/21/19 14:35 78 93 02/21/19 14:33 82 105/56 L 02/21/19 14:30 81 95 02/21/19 14:27 99 H 91 02/21/19 14:25 85 95 02/21/19 14:20 90 93 02/21/19 14:19 88 106/55 L 02/21/19 14:15 102 H 96 02/21/19 14:10 97 H 95 02/21/19 14:05 98 H 95 02/21/19 14:02 96 H 115/54 L 02/21/19 14:00 101 H 93 02/21/19 13:59 94 H 125/60 02/21/19 13:56 100 H 113/58 L 02/21/19 13:55 104 H 95 02/21/19 13:53 96 H 121/56 L 88 L 02/21/19 13:50 99 H 20 116/58 L 94 02/21/19 13:48 110 H 124/76 87 L 02/21/19 13:45 102 H 95 02/21/19 13:40 86 93 02/21/19 13:35 88 93 02/21/19 13:33 91 H 134/68 02/21/19 13:30 82 93 02/21/19 13:25 86 93 02/21/19 13:20 84 94 02/21/19 13:18 86 130/68 02/21/19 13:15 97 H 96 02/21/19 13:10 76 94 02/21/19 13:05 75 93 02/21/19 13:02 74 20 115/66 02/21/19 13:00 74 93 02/21/19 12:55 73 93 02/21/19 12:50 84 95 02/21/19 12:48 99.0 F 76 20 124/66 02/21/19 12:45 88 94 02/21/19 12:40 85 95 02/21/19 12:35 81 95 02/21/19 12:32 87 109/59 L 02/21/19 12:30 86 95 02/21/19 12:25 85 96 02/21/19 12:20 83 97 02/21/19 12:16 86 101/56 L 02/21/19 12:15 85 95 02/21/19 12:10 89 95 02/21/19 12:05 98 H 96 02/21/19 12:01 99 H 18 105/61 02/21/19 12:00 100 H 95 02/21/19 11:58 109 H 127/73 02/21/19 11:55 106 H 139/71 94 02/21/19 11:52 103 H 134/65 02/21/19 11:50 105 H 96 02/21/19 11:49 110 H 142/77 H 02/21/19 11:46 93 H 147/81 H 02/21/19 11:45 90 95 02/21/19 11:42 89 137/70 02/21/19 11:40 91 H 96 02/21/19 11:35 98 H 97 02/21/19 11:30 128 H 95 02/21/19 11:29 116 H 141/87 H 02/21/19 11:25 120 H 95 02/21/19 11:20 117 H 95 02/21/19 11:15 122 H 96 02/21/19 11:14 123 H 133/86 02/21/19 11:10 134 H 96 02/21/19 11:05 105 H 95 02/21/19 11:00 91 H 94 02/21/19 10:58 96 H 20 131/78 02/21/19 10:55 92 H 95 02/21/19 10:50 93 H 95 02/21/19 10:45 96 H 132/80 95 02/21/19 10:44 98.4 F 02/21/19 10:40 92 H 95 02/21/19 10:35 103 H 96 02/21/19 10:30 89 94 02/21/19 10:25 84 93 02/21/19 10:20 91 H 93 02/21/19 10:15 87 94 02/21/19 10:10 88 93 02/21/19 10:05 94 H 94 02/21/19 10:00 94 H 93 02/21/19 09:57 102 H 20 117/67 02/21/19 09:55 92 H 94 02/21/19 09:50 96 H 93 02/21/19 09:45 103 H 95 02/21/19 09:44 99 H 115/68 02/21/19 09:40 102 H 95 02/21/19 09:35 98 H 94 02/21/19 09:30 93 H 94 02/21/19 09:27 103 H 116/64 02/21/19 09:25 103 H 96 02/21/19 09:20 110 H 96 02/21/19 09:15 98 H 94 02/21/19 09:12 96 H 122/67 02/21/19 09:10 96 H 94 02/21/19 09:05 90 95 02/21/19 09:00 101 H 96 02/21/19 08:58 98.4 F 93 H 16 120/73 02/21/19 08:55 101 H 96 02/21/19 08:50 96 H 95 02/21/19 08:45 96 H 97 02/21/19 08:44 98 H 125/78 02/21/19 08:40 96 H 96 02/21/19 08:35 94 H 96 02/21/19 08:30 106 H 96 02/21/19 08:27 93 H 116/57 L 02/21/19 08:25 99 H 96 02/21/19 08:20 94 H 96 02/21/19 08:15 103 H 96 02/21/19 08:10 101 H 96 02/21/19 08:05 95 H 96 02/21/19 08:00 87 97 02/21/19 07:55 90 97 02/21/19 07:50 98 H 96 02/21/19 07:45 83 97 02/21/19 07:40 86 95 02/21/19 07:35 85 95 02/21/19 07:30 84 96 02/21/19 07:25 82 96 02/21/19 07:20 88 96 02/21/19 07:15 86 96 02/21/19 07:14 87 118/56 L 02/21/19 07:10 87 97 02/21/19 07:05 94 H 96 02/21/19 07:00 98.1 F 86 20 96 02/21/19 06:55 95 H 97 02/21/19 06:50 86 96 02/21/19 06:45 82 96 02/21/19 06:42 93 H 130/74 02/21/19 06:40 95 H 96 02/21/19 06:35 91 H 94 02/21/19 06:30 85 94 02/21/19 06:28 88 132/77 02/21/19 06:25 90 95 02/21/19 06:20 87 95 02/21/19 06:15 88 95 02/21/19 06:13 88 129/65 02/21/19 06:10 86 95 02/21/19 06:05 85 95 02/21/19 06:00 86 95 02/21/19 05:58 82 16 121/74 02/21/19 05:55 86 95 02/21/19 05:50 82 95 02/21/19 05:45 87 95 02/21/19 05:42 81 118/78 02/21/19 05:40 79 95 02/21/19 05:35 92 H 96 02/21/19 05:30 92 H 96 02/21/19 05:27 101 H 16 107/58 L 02/21/19 05:25 100 H 97 02/21/19 05:20 126 H 109/56 L 94 02/21/19 05:18 105 H 88 L 02/21/19 05:15 93 H 95
[2019-02-21 17:45] LABS: Hematocrit (blood only) 34.5 % (37-47); Hemoglobin 11.7 g/dL (12.0-16.0); Mean Corpuscular Hgb Conc 33.9 g/dL (32-36); Mean Platelet Volume 9.5 fL (7.4-10.4); Platelet Count 229 K/uL (130-400); RDW Coefficient of Variation 13.9 % (11.5-14.5); RDW Standard Deviation 45.5 fL (36.4-46.3); Red Blood Count 3.75 M/uL (4.2-5.4); White Blood Count 16.37 K/uL (4.8-10.8)
[2019-02-21 18:02] LABS: Albumin Level 2.2 gm/dl (3.4-5.0); BUN Creatinine Ratio 10.5 (10-20); Calcium 8.7 mg/dl (8.5-10.1); Creatinine Clr Calc Pharmacy 74.6 ml/min; Est GFR (African American) 54.3; Est GFR (Non-African American) 46.9; Potassium 4.2 mmol/L (3.5-5.1)
[2019-02-21 18:05] LABS: Albumin Globulin Ratio 0.6 (0.9-2); Globulin 3.8 gm/dl (2.5-4.0)
[2019-02-21] MEDS ORDERED: LIDOCAINE/EPINEPHRINE 2% 1:200,000 20 ML SDV ONE (18:48)
[2019-02-21] MEDS ORDERED: CITRIC ACID/SODIUM CITRATE 15 ML UDC ONE (18:51)
[2019-02-21] MEDS ORDERED: ONDANSETRON INJ 2 MG/ML 2 ML VIAL ONE ×2 (18:56→19:51)
[2019-02-21] MEDS ORDERED: SUCCINYLCHOLINE CHLORIDE 20 MG/ML 10 ML VIAL ONE (18:56)
[2019-02-21] MEDS ORDERED: LIDOCAINE HCL 2% MPF (LOCAL) 5 ML VIAL INFIL ONE ×2 (18:56→19:57)
[2019-02-21] MEDS ORDERED: PROPOFOL IV EMULSION 10 MG/ML 20 ML VIAL IV ONE (18:56)
[2019-02-21] MEDS ORDERED: OXYTOCIN 10 UNITS/ML VIAL ONE (18:56)
--- NOTE | 2019-02-21 18:56 | Labor Progress Brief Note ---
Date of Service February 21, 2019 Subjective pt is in pain. severe. feeling ctx. Assessment & Plan (1) Post term over 40 weeks: (2) Encounter for induction of labor: (3) Elevated serum creatinine: pt has no prior h/o kidney disease. bps ok, plts ok, not making urine and creat 1.5. i am concerned that we are remote from delivery and rec proceeding with c/s. i have no prior creat to compare. she is in pain and anesth working toward making her more comfortable. i have used pit without ability to get adeq labor. she has had no significant cx change since this am. i have made these recommendations and she desires to proceed with c/s. bedside us did not show a full bladder and a new bai has been placed. will consent her for c/s. anesth aware. Physical Exam Constitutional: WD/WN, vitals as above Genitourinary: Manual OB Exam: + cervical dilation 5 cm, + cervical effacement (75) and + station -2 OB Exam Monitor Tracing: + external FHT monitor used (150 mod variability) and + intra-uterine pressure catheter used (q2, mvu's inadeq, pit at 23, then halved to 12 and then stopped. ) Results & Data Vital Signs (Past 12 Hours) Vital Signs Temp Pulse Resp BP Pulse Ox 02/21/19 18:50 110 H 144/65 H 02/21/19 18:47 118 H 147/67 H 02/21/19 18:45 115 H 98 02/21/19 18:40 112 H 98 02/21/19 18:35 113 H 97 02/21/19 18:34 118 H 146/81 H 02/21/19 18:32 110 H 88 L 02/21/19 18:30 111 H 95 02/21/19 18:25 116 H 81 L 02/21/19 18:20 116 H 97 02/21/19 18:17 113 H 149/74 H 02/21/19 18:15 112 H 97 02/21/19 18:14 110 H 154/75 H 02/21/19 18:11 104 H 143/84 H 02/21/19 18:10 99 H 93 02/21/19 18:08 96 H 123/68 02/21/19 18:05 98 H 127/72 95 02/21/19 18:02 104 H 129/76 02/21/19 18:00 97 H 93 02/21/19 17:59 98.6 F 92 H 20 129/75 02/21/19 17:56 99 H 135/76 02/21/19 17:55 101 H 94 02/21/19 17:53 96 H 133/72 02/21/19 17:50 98 H 95 02/21/19 17:49 99 H 118/70 02/21/19 17:45 100 H 96 02/21/19 17:40 103 H 94 02/21/19 17:38 99 H 126/77 02/21/19 17:35 103 H 95 02/21/19 17:30 101 H 95 02/21/19 17:25 98 H 96 02/21/19 17:20 95 H 96 02/21/19 17:19 97 H 124/56 L 02/21/19 17:15 96 H 97 02/21/19 17:10 100 H 95 02/21/19 17:05 92 H 95 02/21/19 17:04 96 H 16 123/67 02/21/19 17:00 97 H 95 02/21/19 16:55 99 H 96 02/21/19 16:50 103 H 141/72 H 95 02/21/19 16:45 93 H 95 02/21/19 16:40 102 H 95 02/21/19 16:35 91 H 125/65 93 02/21/19 16:30 101 H 93 02/21/19 16:25 86 92 02/21/19 16:20 91 H 90 02/21/19 16:19 90 128/73 90 02/21/19 16:15 110 H 93 02/21/19 16:12 99 H 91 02/21/19 16:10 105 H 95 02/21/19 16:05 102 H 134/78 93 02/21/19 16:00 98.2 F 99 H 93 02/21/19 15:55 97 H 96 02/21/19 15:50 102 H 125/60 98 02/21/19 15:45 106 H 98 02/21/19 15:41 103 H 90 02/21/19 15:40 99 H 96 02/21/19 15:35 95 H 96 02/21/19 15:34 95 H 124/58 L 02/21/19 15:30 92 H 95 02/21/19 15:29 85 91 02/21/19 15:25 96 H 94 02/21/19 15:22 87 91 02/21/19 15:20 92 H 118/67 92 02/21/19 15:15 88 91 02/21/19 15:12 86 91 02/21/19 15:10 88 90 02/21/19 15:07 85 91 02/21/19 15:05 95 H 94 02/21/19 15:04 86 121/59 L 02/21/19 15:00 86 91 02/21/19 14:57 83 91 02/21/19 14:55 83 92 02/21/19 14:50 83 111/56 L 93 02/21/19 14:45 86 93 02/21/19 14:40 84 92 02/21/19 14:35 78 93 02/21/19 14:33 82 105/56 L 02/21/19 14:30 81 95 02/21/19 14:27 99 H 91 02/21/19 14:25 85 95 02/21/19 14:20 90 93 02/21/19 14:19 88 106/55 L 02/21/19 14:15 102 H 96 02/21/19 14:10 97 H 95 02/21/19 14:05 98 H 95 02/21/19 14:02 96 H 115/54 L 02/21/19 14:00 101 H 93 02/21/19 13:59 94 H 125/60 02/21/19 13:56 100 H 113/58 L 02/21/19 13:55 104 H 95 02/21/19 13:53 96 H 121/56 L 88 L 02/21/19 13:50 99 H 20 116/58 L 94 02/21/19 13:48 110 H 124/76 87 L 02/21/19 13:45 102 H 95 02/21/19 13:40 86 93 02/21/19 13:35 88 93 02/21/19 13:33 91 H 134/68 02/21/19 13:30 82 93 02/21/19 13:25 86 93 02/21/19 13:20 84 94 02/21/19 13:18 86 130/68 02/21/19 13:15 97 H 96 02/21/19 13:10 76 94 02/21/19 13:05 75 93 02/21/19 13:02 74 20 115/66 02/21/19 13:00 74 93 02/21/19 12:55 73 93 02/21/19 12:50 84 95 02/21/19 12:48 99.0 F 76 20 124/66 02/21/19 12:45 88 94 02/21/19 12:40 85 95 02/21/19 12:35 81 95 02/21/19 12:32 87 109/59 L 02/21/19 12:30 86 95 02/21/19 12:25 85 96 02/21/19 12:20 83 97 02/21/19 12:16 86 101/56 L 02/21/19 12:15 85 95 02/21/19 12:10 89 95 02/21/19 12:05 98 H 96 02/21/19 12:01 99 H 18 105/61 02/21/19 12:00 100 H 95 02/21/19 11:58 109 H 127/73 02/21/19 11:55 106 H 139/71 94 02/21/19 11:52 103 H 134/65 02/21/19 11:50 105 H 96 02/21/19 11:49 110 H 142/77 H 02/21/19 11:46 93 H 147/81 H 02/21/19 11:45 90 95 02/21/19 11:42 89 137/70 02/21/19 11:40 91 H 96 02/21/19 11:35 98 H 97 02/21/19 11:30 128 H 95 02/21/19 11:29 116 H 141/87 H 02/21/19 11:25 120 H 95 02/21/19 11:20 117 H 95 02/21/19 11:15 122 H 96 02/21/19 11:14 123 H 133/86 02/21/19 11:10 134 H 96 02/21/19 11:05 105 H 95 02/21/19 11:00 91 H 94 02/21/19 10:58 96 H 20 131/78 02/21/19 10:55 92 H 95 02/21/19 10:50 93 H 95 02/21/19 10:45 96 H 132/80 95 02/21/19 10:44 98.4 F 02/21/19 10:40 92 H 95 02/21/19 10:35 103 H 96 02/21/19 10:30 89 94 02/21/19 10:25 84 93 02/21/19 10:20 91 H 93 02/21/19 10:15 87 94 02/21/19 10:10 88 93 02/21/19 10:05 94 H 94 02/21/19 10:00 94 H 93 02/21/19 09:57 102 H 20 117/67 02/21/19 09:55 92 H 94 02/21/19 09:50 96 H 93 02/21/19 09:45 103 H 95 02/21/19 09:44 99 H 115/68 02/21/19 09:40 102 H 95 02/21/19 09:35 98 H 94 02/21/19 09:30 93 H 94 02/21/19 09:27 103 H 116/64 02/21/19 09:25 103 H 96 02/21/19 09:20 110 H 96 02/21/19 09:15 98 H 94 02/21/19 09:12 96 H 122/67 02/21/19 09:10 96 H 94 02/21/19 09:05 90 95 02/21/19 09:00 101 H 96 02/21/19 08:58 98.4 F 93 H 16 120/73 02/21/19 08:55 101 H 96 02/21/19 08:50 96 H 95 02/21/19 08:45 96 H 97 02/21/19 08:44 98 H 125/78 02/21/19 08:40 96 H 96 02/21/19 08:35 94 H 96 02/21/19 08:30 106 H 96 02/21/19 08:27 93 H 116/57 L 02/21/19 08:25 99 H 96 02/21/19 08:20 94 H 96 02/21/19 08:15 103 H 96 02/21/19 08:10 101 H 96 02/21/19 08:05 95 H 96 02/21/19 08:00 87 97 02/21/19 07:55 90 97 02/21/19 07:50 98 H 96 02/21/19 07:45 83 97 02/21/19 07:40 86 95 02/21/19 07:35 85 95 02/21/19 07:30 84 96 02/21/19 07:25 82 96 02/21/19 07:20 88 96 02/21/19 07:15 86 96 02/21/19 07:14 87 118/56 L 02/21/19 07:10 87 97 02/21/19 07:05 94 H 96 02/21/19 07:00 98.1 F 86 20 96 02/21/19 06:55 95 H 97
[2019-02-21] MEDS ORDERED: LACTATED RINGER'S 1,000 ML IV SCH ×3 (19:00→20:30)
[2019-02-21] MEDS ORDERED: MoRPHine SULFATE PF 1 MG/ML 10 ML AMP/VIAL ONE (19:12)
[2019-02-21] MEDS ORDERED: CITRIC ACID/SODIUM CITRATE 15 ML UDC PO SCH (19:15)
[2019-02-21] MEDS ORDERED: CEFAZOLIN 3000MG 65 ML IV SCH (19:15)
[2019-02-21] MEDS ORDERED: PHENYLEPHRINE 100MCG/ML 5ML SYR ONE ×2 (19:51)
[2019-02-21] MEDS ORDERED: MoRPHine SULFATE PF 1 MG/ML 10 ML AMP/VIAL EPI ONE (19:58)
[2019-02-21] MEDS ORDERED: NALOXONE HCL 0.4 MG/1 ML VIAL/CARP IV PRN (19:58)
[2019-02-21] MEDS ORDERED: LACTATED RINGER'S 500 ML IV PRN (19:58)
[2019-02-21] MEDS ORDERED: PROMETHAZINE HCL 25 MG in SODIUM CHLORIDE 0.9% 50 ML IV PRN (19:58)
[2019-02-21] MEDS ORDERED: DiphenhydrAMINE HCL 50 MG/ML VIAL IV PRN (19:58)
[2019-02-21] MEDS ORDERED: HYDROmorphone INJ 0.5 MG/0.5 ML SYR IV PRN (19:58)
[2019-02-21] MEDS ORDERED: ePHEDrine sulfate 50 MG/ML AMP IV PRN (19:58)
[2019-02-21] MEDS ORDERED: NALOXONE HCL 1 MG in SODIUM CHLORIDE 0.9% 1000ML 1,000 ML IV PRN (19:58)
[2019-02-21] MEDS ORDERED: NALOXONE HCL 0.08 MG in SYRINGE 1.8 ML IV PRN (19:58)
[2019-02-21] MEDS ORDERED: NALBUPHINE HCL INJ 10 MG/ML AMP IV PRN (19:58)
[2019-02-21] MEDS ORDERED: ONDANSETRON INJ 2 MG/ML 2 ML VIAL IV PRN (19:58)
[2019-02-21] MEDS ORDERED: SODIUM CHLORIDE 0.9% 1000ML 1,000 ML IV SCH (20:00)
[2019-02-21] MEDS ORDERED: NO NARCOTICS OR SEDATIVES SCH (20:00)
[2019-02-21] MEDS ORDERED: DC INTRASPINAL MORPHINE SCH (20:00)
--- NOTE | 2019-02-21 20:22 | Post Operative Brief Note ---
PG Immediate Post Op with CF Date of Surgery February 21, 2019 Pre & Post Diagnosis Operation Date: 02/21/19 19:05 Pre-Op Diagnosis: Post dates. Postterm . Induction of labor. Unexplained elevation of serum creatinine remote from delivery. Meconium stained amniotic fluid. Post-Op Diagnosis: Same as preop diagnosis. Delivery of live female child at 1938 Procedure Operation Date: 02/21/19 19:05 Actual Procedures p Primary Low Transverse Section in LD(Bilateral) - Aparna Van MD, FACOG Surgeon Aparna Van MD, FACOG Pit Worker Power Shovel RN Estimated Blood Loss 800 Findings Consistent with Post-Op Diagnosis (viable female infants, apgars and wt pending. nl uterus tubes, ovaries bilateral) Fluids 1700 Drains Jade Catheter (placed in labor and delivery, minimal urine drainage) Anesthesia Type Labor Epidural Disposition Accompanied Patient To Recovery: No Disposition: L&D
[2019-02-21] MEDS ORDERED: MAGNESIUM HYDROXIDE SUSP 30 ML UDC PO PRN (20:27)
[2019-02-21] MEDS ORDERED: HYDROCORTISONE ACETATE 25 MG SUPP PR PRN (20:27)
[2019-02-21] MEDS ORDERED: SUPERCREAM 0.870% 15 GM JAR EXT PRN (20:27)
[2019-02-21] MEDS ORDERED: BENZOCAINE 20% AER SPR 82.5 GM CAN EXT PRN (20:27)
[2019-02-21 20:57] LABS: Base Excess Cord Arterial Bld -3.5 mEq/L (-9-1.8); CO2 Cord Arterial Blood 48 mmHg (39.1-73.5); HCO3 Cord Arterial Blood 23 mmol/L (19.7-28.5)
[2019-02-21 21:02] LABS: Cord Venous Blood HCO3 23 mmol/L (18.4-26.8); Cord Venous Blood PCO2 42 mmHg (30.4-57.2); Cord Venous Blood PO2 24 mmHg (14.1-43.3); Cord Venous Blood pH 7.34 (7.20-7.44)
[2019-02-21] MEDS: KETOROLAC 30 MG/ML VIAL IV PRN (21:02)
[2019-02-21 21:03] LABS: Oxygen Sat Cord Arterial Blood < 60.0 % (<60)
[2019-02-21 21:04] LABS: O2 Saturation Cord Venous Bld < 60.0 % (<68)
[2019-02-21] MEDS: OXYTOCIN 20 UNITS in LACTATED RINGER'S 1,000 ML IV SCH (21:09)
--- NOTE | 2019-02-21 21:16 | Operative Report ---
Post Operative Report Pre & Post Diagnosis Operation Date: 02/21/19 19:05 Pre-Op Diagnosis: Post dates. Post dates induction of labor. Unexplained elevation of serum creatinine/oligouria. Remote from delivery. Post-Op Diagnosis: Same as preop diagnosis. Delivery of live female child at 1938 Procedure Operation Date: 02/21/19 19:05 Actual Procedures Primary Low Transverse Section Surgeon Aparna Van MD, FACOG Machinery Cleaner RN Estimated Blood Loss 800 Findings Consistent with Post-Op Diagnosis (Viable female Apgars 8 and 9 weight 10 pounds 1 ounce. Normal uterus tubes and ovaries bilaterally.) Specimens Cord blood and cord gases Drains Bai Anesthesia Type L&D Only Epidural Exists Complications none Disposition Accompanied Patient To Recovery: No Disposition: L&D Indications 28-year-old 1 para 0 who presented to labor and delivery for planned induction due to post status and. She underwent cervical ripening with Bai balloon and Pitocin induction of labor. An adequate labor pattern was unable to be established and she was dilated to 5 cm hemostatic today. At approximately 1 PM it was noted that she was making poor urine output. IV fluid boluses have been given. Her urine output remained adequate. On evaluation of blood work her creatinine was 1.5. Of note she had normal blood pressure and normal platelets and other liver function testing. There was no prior history of abnormal renal function. Given that she was remote from delivery it was recommended she proceed with section and she agreed. Description of Procedure The patient was taken to the operating room and identified. She was placed in the supine position with a leftward tilt on the operating table and her epidural had been bolused. She had a bai catheter previously placed. She was prepped and draped in the usual sterile fashion. The knife was used to create a Pfannensteil skin incision that was carried down to the underlying layer fascia. The fascia was nicked in the midline and this opening was extended laterally using Abel scissors. Huber clamps were placed on the superior and inferior aspect of the fascial incision tenting it upward and the underlying rectus muscles were dissected off the overlying fascia both sharply and bluntly using Abel scissors. The rectus muscles were bluntly in the midline. The peritoneal cavity was bluntly entered into. This opening was stretched. The bladder blade was placed. The vesicouterine peritoneum was elevated and opened up into and the bladder flap was created digitally and bladder blade was replaced. The knife was used to create a hysterotomy and this opening was stretched. Meconium-stained fluid was encountered. The operators hand was placed through the hysterotomy and the bladder blade was removed. The head was elevated and flexed and with fundal pressure the head was delivered. The shoulders and body were rapidly delivered. The cord was clamped and cut and the infant's mouth and nares were bulb suction. The infant was handed off to the awaiting pediatricians. Cord blood and cord gases were obtained. The placenta was manually expressed. The uterus was exteriorized and cleared of all clots and debris. Dilute IV Pitocin was begun. Uterine tone was poor. After checking the blood pressure 0.25 mg hemabate was administered intramuscularly into the uterus. The uterine tone was improving. The hysterotomy was closed in a running interlocking fashion using 0 Vicryl followed by a second imbricating layer of 0 Vicryl. 2 bleeding site left and right of the midline were stitched with additional sutures of 0 Vicryl for excellent hemostasis. The pelvis was irrigated. The uterus was returned to the abdomen. The gutters were cleared of all clots and debris. The hysterotomy was reinspected and noted to be hemostatic. The fascia was then closed in running fashion using 0 Vicryl. The subcutaneous fat was copiously irrigated and reapproximated using 2-0 chromic. The skin was closed in a subcuticular fashion using 4-0 Vicryl. Of note the patient began to show urine output. At this point the procedure was terminated. The patient was transferred to the recovery room in stable condition. All sponge, lap and needle counts are correct x2. I attest to the content of the Intraoperative Record and any orders documented therein. Any exceptions are noted below.
--- NOTE | 2019-02-21 21:19 | Anesthesiology Progress Note ---
Date of Service February 21, 2019 Anesthesia Post Procedure Vital Signs Vital Signs: Temp Pulse Resp BP Pulse Ox 02/21/19 21:18 98 H 93 02/21/19 21:17 98 H 95 02/21/19 21:16 93 H 123/62 02/21/19 21:12 91 H 129/70 97 02/21/19 21:07 100 H 97 02/21/19 21:06 88 92 02/21/19 21:02 92 H 96 02/21/19 20:58 94 H 92 02/21/19 20:57 90 99 02/21/19 20:56 86 124/64 02/21/19 20:52 90 97 02/21/19 20:48 90 85 L 02/21/19 20:47 89 100 02/21/19 20:46 95 H 144/58 H 02/21/19 20:42 94 H 56 L 02/21/19 20:41 88 90 02/21/19 20:37 92 H 100 02/21/19 20:33 95 H 129/56 L 02/21/19 20:32 97 H 98 02/21/19 19:19 113 H 16 125/60 02/21/19 19:16 120 H 124/60 02/21/19 19:15 122 H 94 02/21/19 19:13 99 H 130/70 02/21/19 19:10 118 H 128/68 93 02/21/19 19:05 109 H 94 02/21/19 19:02 112 H 90 02/21/19 19:01 104 H 126/62 02/21/19 19:00 107 H 93 02/21/19 18:58 112 H 139/66 02/21/19 18:56 103 H 145/66 H 02/21/19 18:55 100 H 95 02/21/19 18:52 105 H 133/78 02/21/19 18:50 115 H 144/65 H 96 02/21/19 18:47 118 H 147/67 H 02/21/19 18:45 115 H 98 02/21/19 18:40 112 H 98 02/21/19 18:35 113 H 97 02/21/19 18:34 118 H 22 146/81 H 02/21/19 18:32 110 H 88 L 02/21/19 18:30 111 H 95 02/21/19 18:25 116 H 81 L 02/21/19 18:20 116 H 97 02/21/19 18:17 113 H 149/74 H 02/21/19 18:15 112 H 97 02/21/19 18:14 110 H 154/75 H 02/21/19 18:11 104 H 143/84 H 02/21/19 18:10 99 H 93 02/21/19 18:08 96 H 123/68 02/21/19 18:05 98 H 127/72 95 02/21/19 18:02 104 H 129/76 02/21/19 18:00 97 H 93 02/21/19 17:59 37.0 C 92 H 20 129/75 02/21/19 17:56 99 H 135/76 02/21/19 17:55 101 H 94 02/21/19 17:53 96 H 133/72 02/21/19 17:50 98 H 95 02/21/19 17:49 99 H 118/70 02/21/19 17:45 100 H 96 02/21/19 17:40 103 H 94 02/21/19 17:38 99 H 126/77 02/21/19 17:35 103 H 95 02/21/19 17:30 101 H 95 02/21/19 17:25 98 H 96 02/21/19 17:20 95 H 96 02/21/19 17:19 97 H 124/56 L 02/21/19 17:15 96 H 97 02/21/19 17:10 100 H 95 02/21/19 17:05 92 H 95 02/21/19 17:04 96 H 16 123/67 02/21/19 17:00 97 H 95 02/21/19 16:55 99 H 96 02/21/19 16:50 103 H 141/72 H 95 02/21/19 16:45 93 H 95 02/21/19 16:40 102 H 95 02/21/19 16:35 91 H 125/65 93 02/21/19 16:30 101 H 93 02/21/19 16:25 86 92 02/21/19 16:20 91 H 90 02/21/19 16:19 90 128/73 90 02/21/19 16:15 110 H 93 02/21/19 16:12 99 H 91 02/21/19 16:10 105 H 95 02/21/19 16:05 102 H 134/78 93 02/21/19 16:00 36.8 C 99 H 93 02/21/19 15:55 97 H 96 02/21/19 15:50 102 H 125/60 98 02/21/19 15:45 106 H 98 02/21/19 15:41 103 H 90 02/21/19 15:40 99 H 96 02/21/19 15:35 95 H 96 02/21/19 15:34 95 H 124/58 L 02/21/19 15:30 92 H 95 02/21/19 15:29 85 91 02/21/19 15:25 96 H 94 02/21/19 15:22 87 91 02/21/19 15:20 92 H 118/67 92 02/21/19 15:15 88 91 02/21/19 15:12 86 91 02/21/19 15:10 88 90 02/21/19 15:07 85 91 02/21/19 15:05 95 H 94 02/21/19 15:04 86 121/59 L 02/21/19 15:00 86 91 02/21/19 14:57 83 91 02/21/19 14:55 83 92 02/21/19 14:50 83 111/56 L 93 02/21/19 14:45 86 93 02/21/19 14:40 84 92 02/21/19 14:35 78 93 02/21/19 14:33 82 105/56 L 02/21/19 14:30 81 95 02/21/19 14:27 99 H 91 02/21/19 14:25 85 95 02/21/19 14:20 90 93 02/21/19 14:19 88 106/55 L 02/21/19 14:15 102 H 96 02/21/19 14:10 97 H 95 02/21/19 14:05 98 H 95 02/21/19 14:02 96 H 115/54 L 02/21/19 14:00 101 H 93 02/21/19 13:59 94 H 125/60 02/21/19 13:56 100 H 113/58 L 02/21/19 13:55 104 H 95 02/21/19 13:53 96 H 121/56 L 88 L 02/21/19 13:50 99 H 20 116/58 L 94 02/21/19 13:48 110 H 124/76 87 L 02/21/19 13:45 102 H 95 02/21/19 13:40 86 93 02/21/19 13:35 88 93 02/21/19 13:33 91 H 134/68 02/21/19 13:30 82 93 02/21/19 13:25 86 93 02/21/19 13:20 84 94 02/21/19 13:18 86 130/68 02/21/19 13:15 97 H 96 02/21/19 13:10 76 94 02/21/19 13:05 75 93 02/21/19 13:02 74 20 115/66 02/21/19 13:00 74 93 02/21/19 12:55 73 93 02/21/19 12:50 84 95 02/21/19 12:48 37.2 C 76 20 124/66 02/21/19 12:45 88 94 02/21/19 12:40 85 95 02/21/19 12:35 81 95 02/21/19 12:32 87 109/59 L 02/21/19 12:30 86 95 02/21/19 12:25 85 96 02/21/19 12:20 83 97 02/21/19 12:16 86 101/56 L 02/21/19 12:15 85 95 02/21/19 12:10 89 95 02/21/19 12:05 98 H 96 02/21/19 12:01 99 H 18 105/61 02/21/19 12:00 100 H 95 02/21/19 11:58 109 H 127/73 02/21/19 11:55 106 H 139/71 94 02/21/19 11:52 103 H 134/65 02/21/19 11:50 105 H 96 02/21/19 11:49 110 H 142/77 H 02/21/19 11:46 93 H 147/81 H 02/21/19 11:45 90 95 02/21/19 11:42 89 137/70 02/21/19 11:40 91 H 96 02/21/19 11:35 98 H 97 02/21/19 11:30 128 H 95 02/21/19 11:29 116 H 141/87 H 02/21/19 11:25 120 H 95 02/21/19 11:20 117 H 95 02/21/19 11:15 122 H 96 02/21/19 11:14 123 H 133/86 02/21/19 11:10 134 H 96 02/21/19 11:05 105 H 95 02/21/19 11:00 91 H 94 02/21/19 10:58 96 H 20 131/78 02/21/19 10:55 92 H 95 02/21/19 10:50 93 H 95 02/21/19 10:45 96 H 132/80 95 02/21/19 10:44 36.9 C 02/21/19 10:40 92 H 95 02/21/19 10:35 103 H 96 02/21/19 10:30 89 94 02/21/19 10:25 84 93 02/21/19 10:20 91 H 93 02/21/19 10:15 87 94 02/21/19 10:10 88 93 02/21/19 10:05 94 H 94 02/21/19 10:00 94 H 93 02/21/19 09:57 102 H 20 117/67 02/21/19 09:55 92 H 94 02/21/19 09:50 96 H 93 02/21/19 09:45 103 H 95 02/21/19 09:44 99 H 115/68 02/21/19 09:40 102 H 95 02/21/19 09:35 98 H 94 02/21/19 09:30 93 H 94 02/21/19 09:27 103 H 116/64 02/21/19 09:25 103 H 96 02/21/19 09:20 110 H 96 02/21/19 09:15 98 H 94 02/21/19 09:12 96 H 122/67 02/21/19 09:10 96 H 94 02/21/19 09:05 90 95 02/21/19 09:00 101 H 96 02/21/19 08:58 36.9 C 93 H 16 120/73 02/21/19 08:55 101 H 96 02/21/19 08:50 96 H 95 02/21/19 08:45 96 H 97 02/21/19 08:44 98 H 125/78 02/21/19 08:40 96 H 96 02/21/19 08:35 94 H 96 02/21/19 08:30 106 H 96 08/10/19 08:27 93 H 116/57 L 02/21/19 08:25 99 H 96 02/21/19 08:20 94 H 96 02/21/19 08:15 103 H 96 02/21/19 08:10 101 H 96 02/21/19 08:05 95 H 96 02/21/19 08:00 87 97 02/21/19 07:55 90 97 02/21/19 07:50 98 H 96 02/21/19 07:45 83 97 02/21/19 07:40 86 95 02/21/19 07:35 85 95 02/21/19 07:30 84 96 02/21/19 07:25 82 96 02/21/19 07:20 88 96 02/21/19 07:15 86 96 02/21/19 07:14 87 118/56 L 02/21/19 07:10 87 97 02/21/19 07:05 94 H 96 02/21/19 07:00 36.7 C 86 20 96 02/21/19 06:55 95 H 97 02/21/19 06:50 86 96 02/21/19 06:45 82 96 02/21/19 06:42 93 H 130/74 02/21/19 06:40 95 H 96 02/21/19 06:35 91 H 94 02/21/19 06:30 85 94 02/21/19 06:28 88 132/77 02/21/19 06:25 90 95 02/21/19 06:20 87 95 02/21/19 06:15 88 95 02/21/19 06:13 88 129/65 02/21/19 06:10 86 95 02/21/19 06:05 85 95 02/21/19 06:00 86 95 02/21/19 05:58 82 16 121/74 02/21/19 05:55 86 95 02/21/19 05:50 82 95 02/21/19 05:45 87 95 02/21/19 05:42 81 118/78 02/21/19 05:40 79 95 02/21/19 05:35 92 H 96 02/21/19 05:30 92 H 96 02/21/19 05:27 101 H 16 107/58 L 02/21/19 05:25 100 H 97 02/21/19 05:20 126 H 109/56 L 94 02/21/19 05:18 105 H 88 L 02/21/19 05:15 93 H 95 02/21/19 05:14 92 H 18 122/62 02/21/19 05:12 80 130/62 02/21/19 05:10 73 130/62 94 02/21/19 05:08 75 127/60 02/21/19 05:06 85 128/61 02/21/19 05:05 77 94 02/21/19 05:04 83 129/63 02/21/19 05:03 92 H 133/66 02/21/19 05:00 96 H 131/83 95 02/21/19 04:55 85 96 02/21/19 04:54 86 129/86 02/21/19 04:50 84 94 02/21/19 04:45 93 H 98 02/21/19 04:40 85 133/86 98 02/21/19 04:35 83 98 02/21/19 04:30 73 95 02/21/19 04:26 92 H 90 02/21/19 04:25 81 95 02/21/19 04:24 80 125/86 02/21/19 04:22 36.8 C 20 02/21/19 04:20 87 94 02/21/19 04:18 89 90 02/21/19 04:15 87 94 02/21/19 04:10 92 H 152/81 H 96 02/21/19 04:05 101 H 97 02/21/19 04:00 90 95 02/21/19 03:55 84 135/85 96 02/21/19 03:50 83 95 02/21/19 03:45 93 H 95 02/21/19 03:40 91 H 129/76 95 02/21/19 03:35 85 95 02/21/19 03:30 97 H 95 02/21/19 03:25 82 95 02/21/19 03:24 83 135/75 02/21/19 03:20 88 95 02/21/19 03:15 91 H 95 02/21/19 03:10 103 H 95 02/21/19 03:09 96 H 18 140/80 02/21/19 03:05 98 H 95 02/21/19 03:00 94 H 95 02/21/19 02:55 93 H 95 02/21/19 02:53 91 H 129/73 02/21/19 02:50 88 94 02/21/19 02:45 84 94 02/21/19 02:40 87 95 02/21/19 02:39 84 128/74 02/21/19 02:35 100 H 96 02/21/19 02:30 86 96 02/21/19 02:25 88 126/77 96 02/21/19 02:20 84 96 02/21/19 02:15 85 96 02/21/19 02:10 87 96 02/21/19 02:08 91 H 123/70 02/21/19 02:05 82 97 02/21/19 02:00 92 H 96 02/21/19 01:55 92 H 98 02/21/19 01:54 77 125/80 02/21/19 01:53 37.0 C 18 02/21/19 01:50 93 H 95 02/21/19 01:45 80 96 02/21/19 01:40 87 97 02/21/19 01:38 87 122/75 02/21/19 01:35 86 96 02/21/19 01:30 85 96 02/21/19 01:25 83 122/75 96 02/21/19 01:20 88 96 02/21/19 01:15 89 96 02/21/19 01:10 82 97 02/21/19 01:09 84 16 113/68 02/21/19 01:05 81 97 02/21/19 01:00 92 H 97 02/21/19 00:55 81 97 02/21/19 00:53 86 16 131/76 02/21/19 00:50 88 97 02/21/19 00:45 84 98 02/21/19 00:40 82 96 02/21/19 00:39 76 133/75 02/21/19 00:35 86 96 02/21/19 00:30 88 95 02/21/19 00:25 78 134/76 96 02/21/19 00:20 76 95 02/21/19 00:15 79 95 02/21/19 00:10 82 96 02/21/19 00:09 78 127/72 02/21/19 00:05 84 96 02/21/19 00:00 85 96 02/20/19 23:55 89 96 08/09/19 23:54 77 131/77 02/20/19 23:50 79 95 02/20/19 23:45 88 94 02/20/19 23:40 80 95 02/20/19 23:39 76 134/73 02/20/19 23:35 93 H 95 02/20/19 23:30 81 95 02/20/19 23:25 82 95 02/20/19 23:23 88 121/67 02/20/19 23:20 79 95 02/20/19 23:15 80 94 02/20/19 23:10 85 95 02/20/19 23:09 80 123/67 02/20/19 23:05 81 95 02/20/19 23:00 78 96 02/20/19 22:55 86 126/77 95 02/20/19 22:50 93 H 95 02/20/19 22:46 36.8 C 18 02/20/19 22:45 86 95 02/20/19 22:40 86 96 02/20/19 22:39 89 121/60 02/20/19 22:35 86 95 02/20/19 22:30 88 95 02/20/19 22:25 87 95 02/20/19 22:24 80 130/82 02/20/19 22:20 88 95 02/20/19 22:15 83 94 02/20/19 22:10 97 H 95 02/20/19 22:08 89 16 134/74 02/20/19 22:05 76 95 02/20/19 22:00 97 H 95 02/20/19 21:55 97 H 96 02/20/19 21:54 80 135/79 02/20/19 21:50 85 97 02/20/19 21:45 99 H 97 02/20/19 21:42 36.9 C 18 02/20/19 21:40 80 94 02/20/19 21:39 90 117/70 02/20/19 21:35 79 95 02/20/19 21:30 85 94 02/20/19 21:25 80 94 02/20/19 21:23 88 112/67 02/20/19 21:20 86 95 Pain Intensity Bilateral Abdomen: Pain Intensity: 0 Transfer of Care Handoff Completed per policy Notes Mental Status: alert / awake / arousable Patient Amnestic to Procedure: Yes Nausea / Vomiting: adequately controlled Pain: adequately controlled Airway Patency, RR, SpO2: stable & adequate BP & HR: stable & adequate Hydration State: stable & adequate Neuraxial Anesthesia: was administered and sensory block is resolving Anesthetic Complications: no major complications apparent and Pt Satisfied with anesthetic care
[2019-02-22] MEDS: DOCUSATE SODIUM 100 MG CAP PO SCH ×3 (00:17→20:34)
[2019-02-22] MEDS: SIMETHICONE 80 MG CHEW PO SCH ×5 (02:15→20:34)
--- NOTE | 2019-02-22 05:19 | Obstetrical Progress Note ---
Date of Service February 22, 2019 Assessment & Plan (1) Post term over 40 weeks: (2) Encounter for induction of labor: (3) Elevated serum creatinine: (4) S/P section: doing well, routine pp care. will plan to ambulate, adv diet and remove bai later today. can work off dressing later today or tomorrow am. will see how labs look this am but i am pleased she has good urine output now. circumstances of delivery timing and indication reviewed. will see if creat rebounds quickly or not. still no evidence of other s/sx of preeclampsia/hellp syndrome, so I don't feel she falls in that category. Subjective Voiding: bai catheter in place Passing Gas:: No Diet Tolerance:: clear liquids Lochia:: Moderate Feeding Type:: breast feeding denies pain issues, still under duramorph orders. not ambulating, breast feeding. denies cp/sob/n/v. Physical Exam Constitutional WD/WN, vitals as above Respiratory normal respiratory effort, lungs clear to auscultation Cardiovascular Rate/Rhythm: regular rate and regular rhythm Gastrointestinal (Abdomen) Percussion/Palpation: + abdomen tender (appropriate tenderness of fundus at umbilicus) and abdomen soft dressing c/d/i Musculoskeletal nt calves, scds in place Neurologic grossly normal Psychiatric A+Ox3, euthymic affect Results & Data Vital Signs (Past 12 Hours) Vital Signs Temp Pulse Pulse Resp BP BP Pulse Ox 02/22/19 04:45 18 100 02/22/19 03:35 98.8 F 88 18 120/77 02/22/19 03:20 18 95 02/22/19 02:20 18 95 02/22/19 01:20 16 97 02/22/19 00:20 18 95 02/21/19 23:20 98.6 F 91 H 18 123/67 94 02/21/19 23:12 93 H 97 02/21/19 23:10 90 123/67 02/21/19 23:07 89 95 02/21/19 23:06 99 H 93 02/21/19 23:02 99 H 198/102 H 97 02/21/19 22:57 99 H 94 02/21/19 22:55 92 H 92 02/21/19 22:52 100 H 96 02/21/19 22:50 100 H 93 02/21/19 22:47 101 H 95 02/21/19 22:42 96 H 96 02/21/19 22:39 100 H 111/66 02/21/19 22:37 98 H 94 02/21/19 22:35 88 18 93 02/21/19 22:32 100 H 96 02/21/19 22:29 91 H 93 02/21/19 22:27 102 H 95 02/21/19 22:24 103 H 94 02/21/19 22:22 100 H 96 02/21/19 22:19 100 H 129/75 94 02/21/19 22:17 100 H 95 02/21/19 22:12 100 H 96 02/21/19 22:07 100 H 94 02/21/19 22:05 100.2 F H 18 02/21/19 22:02 101 H 96 02/21/19 21:59 104 H 110/78 02/21/19 21:57 103 H 96 02/21/19 21:55 107 H 94 02/21/19 21:52 100 H 96 02/21/19 21:49 97 H 94 02/21/19 21:47 102 H 97 02/21/19 21:42 99 H 97 02/21/19 21:37 108 H 96 02/21/19 21:36 101 H 132/72 02/21/19 21:35 98.4 F 18 02/21/19 21:32 99 H 96 02/21/19 21:29 96 H 94 02/21/19 21:27 95 H 93 02/21/19 21:26 97 H 132/72 02/21/19 21:25 18 02/21/19 21:24 102 H 93 02/21/19 21:22 97 H 96 02/21/19 21:18 98 H 93 02/21/19 21:17 98 H 95 02/21/19 21:16 93 H 123/62 02/21/19 21:12 91 H 129/70 97 02/21/19 21:10 18 02/21/19 21:07 100 H 97 02/21/19 21:06 88 92 02/21/19 21:05 18 02/21/19 21:02 92 H 96 02/21/19 20:58 94 H 92 02/21/19 20:57 90 99 02/21/19 20:56 86 124/64 02/21/19 20:55 18 02/21/19 20:52 90 97 02/21/19 20:48 90 85 L 02/21/19 20:47 89 100 02/21/19 20:46 95 H 144/58 H 02/21/19 20:45 18 02/21/19 20:42 94 H 56 L 02/21/19 20:41 88 90 02/21/19 20:37 92 H 100 02/21/19 20:35 98.8 F 18 02/21/19 20:33 95 H 129/56 L 02/21/19 20:32 97 H 98 02/21/19 19:19 113 H 16 125/60 02/21/19 19:16 120 H 124/60 02/21/19 19:15 122 H 94 02/21/19 19:13 99 H 130/70 02/21/19 19:10 118 H 128/68 93 02/21/19 19:05 109 H 94 02/21/19 19:02 112 H 90 02/21/19 19:01 104 H 126/62 02/21/19 19:00 107 H 93 02/21/19 18:58 112 H 139/66 02/21/19 18:56 103 H 145/66 H 02/21/19 18:55 100 H 95 02/21/19 18:52 105 H 133/78 02/21/19 18:50 115 H 144/65 H 96 02/21/19 18:47 118 H 147/67 H 02/21/19 18:45 115 H 98 02/21/19 18:40 112 H 98 02/21/19 18:35 113 H 97 02/21/19 18:34 118 H 22 146/81 H 02/21/19 18:32 110 H 88 L 02/21/19 18:30 111 H 95 02/21/19 18:25 116 H 81 L 02/21/19 18:20 116 H 97 02/21/19 18:17 113 H 149/74 H 02/21/19 18:15 112 H 97 02/21/19 18:14 110 H 154/75 H 02/21/19 18:11 104 H 143/84 H 02/21/19 18:10 99 H 93 02/21/19 18:08 96 H 123/68 02/21/19 18:05 98 H 127/72 95 02/21/19 18:02 104 H 129/76 02/21/19 18:00 97 H 93 02/21/19 17:59 98.6 F 92 H 20 129/75 02/21/19 17:56 99 H 135/76 02/21/19 17:55 101 H 94 02/21/19 17:53 96 H 133/72 02/21/19 17:50 98 H 95 02/21/19 17:49 99 H 118/70 02/21/19 17:45 100 H 96 02/21/19 17:40 103 H 94 02/21/19 17:38 99 H 126/77 02/21/19 17:35 103 H 95 02/21/19 17:30 101 H 95 02/21/19 17:25 98 H 96 02/21/19 17:20 95 H 96 02/21/19 17:19 97 H 124/56 L
[2019-02-22] MEDS: OXYTOCIN 20 UNITS in LACTATED RINGER'S 1,000 ML IV SCH ×2 (05:36→13:39)
[2019-02-22 06:13] LABS: Basophils # (auto) 0.02 K/uL (0-0.2); Basophils % (auto) 0.1 %; Hematocrit (blood only) 27.7 % (37-47); Hemoglobin 9.3 g/dL (12.0-16.0); Immature Granulocytes # (auto) 0.06 K/uL (0.00-0.02); Immature Granulocytes % (auto) 0.3 %; Lymphocytes # (auto) 1.47 K/uL (1.2-3.4); Lymphocytes % (auto) 7.4 %; Mean Corpuscular Hgb Conc 33.6 g/dL (32-36); Monocytes # (auto) 1.48 K/uL (0.11-0.59); Monocytes % (auto) 7.4 %; Neutrophils # (auto) 16.88 K/uL (1.4-6.5); Neutrophils % (auto) 84.8 %; Platelet Count 199 K/uL (130-400); RDW Coefficient of Variation 13.9 % (11.5-14.5); RDW Standard Deviation 45.6 fL (36.4-46.3); Red Blood Count 3.01 M/uL (4.2-5.4); White Blood Count 19.91 K/uL (4.8-10.8)
[2019-02-22 06:38] LABS: Albumin Level 1.8 gm/dl (3.4-5.0); BUN Creatinine Ratio 13.3 (10-20); Calcium 8.1 mg/dl (8.5-10.1); Creatinine Clr Calc Pharmacy 105.3 ml/min; Est GFR (African American) 82.4; Est GFR (Non-African American) 71.1; Potassium 4.2 mmol/L (3.5-5.1)
[2019-02-22 06:41] LABS: Albumin Globulin Ratio 0.6 (0.9-2); Bilirubin,Total 0.8 mg/dl (0.2-1); Globulin 3.3 gm/dl (2.5-4.0); Total Protein 5.1 gm/dl (6.4-8.2)
[2019-02-22] MEDS: FERROUS SULFATE 325 MG TAB PO SCH (08:47)
[2019-02-22] MEDS: KETOROLAC 30 MG/ML VIAL IV PRN (08:48)
[2019-02-22] MEDS ORDERED: DIPHTHERIA/TETANUS/PERTUSSIS 0.5 ML SYR/VIAL IM ONE (09:00)
--- NOTE | 2019-02-22 12:36 | Anesthesiology Progress Note ---
Date of Service February 22, 2019 Anesthesia Post Procedure Vital Signs Vital Signs: Temp Pulse Pulse Resp BP BP Pulse Ox 02/22/19 09:00 21 98 02/22/19 08:00 19 96 02/22/19 07:30 36.8 C 94 H 19 113/71 98 02/22/19 06:30 16 98 02/22/19 05:30 18 97 02/22/19 04:45 18 100 02/22/19 03:35 37.1 C 88 18 120/77 02/22/19 03:20 18 95 02/22/19 02:20 18 95 02/22/19 01:20 16 97 02/22/19 00:20 18 95 02/21/19 23:20 37 C 91 H 18 123/67 94 02/21/19 23:12 93 H 97 02/21/19 23:10 90 123/67 02/21/19 23:07 89 95 02/21/19 23:06 99 H 93 02/21/19 23:02 99 H 198/102 H 97 02/21/19 22:57 99 H 94 02/21/19 22:55 92 H 92 02/21/19 22:52 100 H 96 02/21/19 22:50 100 H 93 02/21/19 22:47 101 H 95 02/21/19 22:42 96 H 96 02/21/19 22:39 100 H 111/66 02/21/19 22:37 98 H 94 02/21/19 22:35 88 18 93 02/21/19 22:32 100 H 96 02/21/19 22:29 91 H 93 02/21/19 22:27 102 H 95 02/21/19 22:24 103 H 94 02/21/19 22:22 100 H 96 02/21/19 22:19 100 H 129/75 94 02/21/19 22:17 100 H 95 02/21/19 22:12 100 H 96 02/21/19 22:07 100 H 94 02/21/19 22:05 37.9 C H 18 02/21/19 22:02 101 H 96 02/21/19 21:59 104 H 110/78 02/21/19 21:57 103 H 96 02/21/19 21:55 107 H 94 02/21/19 21:52 100 H 96 02/21/19 21:49 97 H 94 02/21/19 21:47 102 H 97 02/21/19 21:42 99 H 97 02/21/19 21:37 108 H 96 02/21/19 21:36 101 H 132/72 02/21/19 21:35 36.9 C 18 02/21/19 21:32 99 H 96 02/21/19 21:29 96 H 94 02/21/19 21:27 95 H 93 02/21/19 21:26 97 H 132/72 02/21/19 21:25 18 02/21/19 21:24 102 H 93 02/21/19 21:22 97 H 96 02/21/19 21:18 98 H 93 02/21/19 21:17 98 H 95 02/21/19 21:16 93 H 123/62 02/21/19 21:12 91 H 129/70 97 02/21/19 21:10 18 02/21/19 21:07 100 H 97 02/21/19 21:06 88 92 02/21/19 21:05 18 02/21/19 21:02 92 H 96 02/21/19 20:58 94 H 92 02/21/19 20:57 90 99 02/21/19 20:56 86 124/64 02/21/19 20:55 18 02/21/19 20:52 90 97 02/21/19 20:48 90 85 L 02/21/19 20:47 89 100 02/21/19 20:46 95 H 144/58 H 02/21/19 20:45 18 02/21/19 20:42 94 H 56 L 02/21/19 20:41 88 90 02/21/19 20:37 92 H 100 02/21/19 20:35 37.1 C 18 02/21/19 20:33 95 H 129/56 L 02/21/19 20:32 97 H 98 02/21/19 19:19 113 H 16 125/60 02/21/19 19:16 120 H 124/60 02/21/19 19:15 122 H 94 02/21/19 19:13 99 H 130/70 02/21/19 19:10 118 H 128/68 93 02/21/19 19:05 109 H 94 02/21/19 19:02 112 H 90 02/21/19 19:01 104 H 126/62 02/21/19 19:00 107 H 93 02/21/19 18:58 112 H 139/66 02/21/19 18:56 103 H 145/66 H 02/21/19 18:55 100 H 95 02/21/19 18:52 105 H 133/78 02/21/19 18:50 115 H 144/65 H 96 02/21/19 18:47 118 H 147/67 H 02/21/19 18:45 115 H 98 02/21/19 18:40 112 H 98 02/21/19 18:35 113 H 97 02/21/19 18:34 118 H 22 146/81 H 02/21/19 18:32 110 H 88 L 02/21/19 18:30 111 H 95 02/21/19 18:25 116 H 81 L 02/21/19 18:20 116 H 97 02/21/19 18:17 113 H 149/74 H 02/21/19 18:15 112 H 97 02/21/19 18:14 110 H 154/75 H 02/21/19 18:11 104 H 143/84 H 02/21/19 18:10 99 H 93 02/21/19 18:08 96 H 123/68 02/21/19 18:05 98 H 127/72 95 02/21/19 18:02 104 H 129/76 02/21/19 18:00 97 H 93 02/21/19 17:59 37.0 C 92 H 20 129/75 02/21/19 17:56 99 H 135/76 02/21/19 17:55 101 H 94 02/21/19 17:53 96 H 133/72 02/21/19 17:50 98 H 95 02/21/19 17:49 99 H 118/70 02/21/19 17:45 100 H 96 02/21/19 17:40 103 H 94 02/21/19 17:38 99 H 126/77 02/21/19 17:35 103 H 95 02/21/19 17:30 101 H 95 02/21/19 17:25 98 H 96 02/21/19 17:20 95 H 96 02/21/19 17:19 97 H 124/56 L 02/21/19 17:15 96 H 97 02/21/19 17:10 100 H 95 02/21/19 17:05 92 H 95 02/21/19 17:04 96 H 16 123/67 02/21/19 17:00 97 H 95 02/21/19 16:55 99 H 96 02/21/19 16:50 103 H 141/72 H 95 02/21/19 16:45 93 H 95 02/21/19 16:40 102 H 95 02/21/19 16:35 91 H 125/65 93 02/21/19 16:30 101 H 93 02/21/19 16:25 86 92 02/21/19 16:20 91 H 90 02/21/19 16:19 90 128/73 90 02/21/19 16:15 110 H 93 02/21/19 16:12 99 H 91 02/21/19 16:10 105 H 95 02/21/19 16:05 102 H 134/78 93 02/21/19 16:00 36.8 C 99 H 93 02/21/19 15:55 97 H 96 02/21/19 15:50 102 H 125/60 98 02/21/19 15:45 106 H 98 02/21/19 15:41 103 H 90 02/21/19 15:40 99 H 96 02/21/19 15:35 95 H 96 02/21/19 15:34 95 H 124/58 L 02/21/19 15:30 92 H 95 02/21/19 15:29 85 91 02/21/19 15:25 96 H 94 02/21/19 15:22 87 91 02/21/19 15:20 92 H 118/67 92 02/21/19 15:15 88 91 02/21/19 15:12 86 91 02/21/19 15:10 88 90 02/21/19 15:07 85 91 02/21/19 15:05 95 H 94 02/21/19 15:04 86 121/59 L 02/21/19 15:00 86 91 02/21/19 14:57 83 91 02/21/19 14:55 83 92 02/21/19 14:50 83 111/56 L 93 02/21/19 14:45 86 93 02/21/19 14:40 84 92 02/21/19 14:35 78 93 02/21/19 14:33 82 105/56 L 02/21/19 14:30 81 95 02/21/19 14:27 99 H 91 02/21/19 14:25 85 95 02/21/19 14:20 90 93 02/21/19 14:19 88 106/55 L 02/21/19 14:15 102 H 96 02/21/19 14:10 97 H 95 02/21/19 14:05 98 H 95 02/21/19 14:02 96 H 115/54 L 02/21/19 14:00 101 H 93 02/21/19 13:59 94 H 125/60 02/21/19 13:56 100 H 113/58 L 02/21/19 13:55 104 H 95 02/21/19 13:53 96 H 121/56 L 88 L 02/21/19 13:50 99 H 20 116/58 L 94 02/21/19 13:48 110 H 124/76 87 L 02/21/19 13:45 102 H 95 02/21/19 13:40 86 93 02/21/19 13:35 88 93 02/21/19 13:33 91 H 134/68 02/21/19 13:30 82 93 02/21/19 13:25 86 93 02/21/19 13:20 84 94 02/21/19 13:18 86 130/68 02/21/19 13:15 97 H 96 02/21/19 13:10 76 94 02/21/19 13:05 75 93 02/21/19 13:02 74 20 115/66 02/21/19 13:00 74 93 02/21/19 12:55 73 93 02/21/19 12:50 84 95 02/21/19 12:48 37.2 C 76 20 124/66 02/21/19 12:45 88 94 02/21/19 12:40 85 95 Pulse Ox 02/22/19 09:00 02/22/19 08:00 02/22/19 07:30 98 02/22/19 06:30 02/22/19 05:30 02/22/19 04:45 02/22/19 03:35 02/22/19 03:20 02/22/19 02:20 02/22/19 01:20 02/22/19 00:20 02/21/19 23:20 02/21/19 23:12 02/21/19 23:10 02/21/19 23:07 02/21/19 23:06 02/21/19 23:02 02/21/19 22:57 02/21/19 22:55 02/21/19 22:52 02/21/19 22:50 02/21/19 22:47 02/21/19 22:42 02/21/19 22:39 02/21/19 22:37 02/21/19 22:35 02/21/19 22:32 02/21/19 22:29 02/21/19 22:27 02/21/19 22:24 02/21/19 22:22 02/21/19 22:19 02/21/19 22:17 02/21/19 22:12 02/21/19 22:07 02/21/19 22:05 02/21/19 22:02 02/21/19 21:59 02/21/19 21:57 02/21/19 21:55 02/21/19 21:52 02/21/19 21:49 02/21/19 21:47 02/21/19 21:42 02/21/19 21:37 02/21/19 21:36 02/21/19 21:35 02/21/19 21:32 02/21/19 21:29 02/21/19 21:27 02/21/19 21:26 02/21/19 21:25 02/21/19 21:24 02/21/19 21:22 02/21/19 21:18 02/21/19 21:17 02/21/19 21:16 02/21/19 21:12 02/21/19 21:10 02/21/19 21:07 02/21/19 21:06 02/21/19 21:05 02/21/19 21:02 02/21/19 20:58 02/21/19 20:57 02/21/19 20:56 02/21/19 20:55 02/21/19 20:52 02/21/19 20:48 02/21/19 20:47 02/21/19 20:46 02/21/19 20:45 02/21/19 20:42 02/21/19 20:41 02/21/19 20:37 02/21/19 20:35 02/21/19 20:33 02/21/19 20:32 02/21/19 19:19 02/21/19 19:16 02/21/19 19:15 02/21/19 19:13 02/21/19 19:10 02/21/19 19:05 02/21/19 19:02 02/21/19 19:01 02/21/19 19:00 02/21/19 18:58 02/21/19 18:56 02/21/19 18:55 02/21/19 18:52 02/21/19 18:50 02/21/19 18:47 02/21/19 18:45 02/21/19 18:40 02/21/19 18:35 02/21/19 18:34 02/21/19 18:32 02/21/19 18:30 02/21/19 18:25 02/21/19 18:20 02/21/19 18:17 02/21/19 18:15 02/21/19 18:14 02/21/19 18:11 02/21/19 18:10 02/21/19 18:08 02/21/19 18:05 02/21/19 18:02 02/21/19 18:00 02/21/19 17:59 02/21/19 17:56 02/21/19 17:55 02/21/19 17:53 02/21/19 17:50 02/21/19 17:49 02/21/19 17:45 02/21/19 17:40 02/21/19 17:38 02/21/19 17:35 02/21/19 17:30 02/21/19 17:25 02/21/19 17:20 02/21/19 17:19 02/21/19 17:15 02/21/19 17:10 02/21/19 17:05 02/21/19 17:04 02/21/19 17:00 02/21/19 16:55 02/21/19 16:50 02/21/19 16:45 02/21/19 16:40 02/21/19 16:35 02/21/19 16:30 02/21/19 16:25 02/21/19 16:20 02/21/19 16:19 02/21/19 16:15 02/21/19 16:12 02/21/19 16:10 02/21/19 16:05 02/21/19 16:00 02/21/19 15:55 02/21/19 15:50 02/21/19 15:45 02/21/19 15:41 02/21/19 15:40 02/21/19 15:35 02/21/19 15:34 02/21/19 15:30 02/21/19 15:29 02/21/19 15:25 02/21/19 15:22 02/21/19 15:20 02/21/19 15:15 02/21/19 15:12 02/21/19 15:10 02/21/19 15:07 02/21/19 15:05 02/21/19 15:04 02/21/19 15:00 02/21/19 14:57 02/21/19 14:55 02/21/19 14:50 02/21/19 14:45 02/21/19 14:40 02/21/19 14:35 02/21/19 14:33 02/21/19 14:30 02/21/19 14:27 02/21/19 14:25 02/21/19 14:20 02/21/19 14:19 02/21/19 14:15 02/21/19 14:10 02/21/19 14:05 02/21/19 14:02 02/21/19 14:00 02/21/19 13:59 02/21/19 13:56 02/21/19 13:55 02/21/19 13:53 02/21/19 13:50 02/21/19 13:48 02/21/19 13:45 02/21/19 13:40 02/21/19 13:35 02/21/19 13:33 02/21/19 13:30 02/21/19 13:25 02/21/19 13:20 02/21/19 13:18 02/21/19 13:15 02/21/19 13:10 02/21/19 13:05 02/21/19 13:02 02/21/19 13:00 02/21/19 12:55 02/21/19 12:50 02/21/19 12:48 02/21/19 12:45 02/21/19 12:40 Pain Intensity Bilateral Abdomen: Pain Intensity: 2 Transfer of Care Handoff Completed per policy Notes Mental Status: alert / awake / arousable Patient Amnestic to Procedure: Yes Nausea / Vomiting: adequately controlled Pain: adequately controlled Airway Patency, RR, SpO2: stable & adequate BP & HR: stable & adequate Hydration State: stable & adequate Anesthetic Complications: no major complications apparent
[2019-02-22] MEDS ORDERED: PROMETHAZINE HCL 25 MG in SODIUM CHLORIDE 0.9% 50 ML IV PRN (13:58)
[2019-02-22] MEDS ORDERED: DiphenhydrAMINE HCL 50 MG/ML VIAL IV PRN (13:58)
[2019-02-22] MEDS ORDERED: DC INTRASPINAL MORPHINE SCH (13:58)
[2019-02-22] MEDS ORDERED: ONDANSETRON INJ 2 MG/ML 2 ML VIAL IV PRN (13:58)
[2019-02-22] MEDS: OXYCODONE/ACETAMINOPHEN 5mg/325mg TAB PO PRN ×2 (15:56→20:35)
[2019-02-22] MEDS: IBUPROFEN 600 MG TAB PO PRN ×2 (15:57→20:34)
[2019-02-23] MEDS: IBUPROFEN 600 MG TAB PO PRN ×5 (03:03→20:13)
[2019-02-23] MEDS: OXYCODONE/ACETAMINOPHEN 5mg/325mg TAB PO PRN ×5 (03:04→20:12)
[2019-02-23 06:38] LABS: Hemoglobin 7.9 g/dL (12.0-16.0)
--- NOTE | 2019-02-23 07:16 | Obstetrical Progress Note ---
Date of Service February 23, 2019 Assessment & Plan (1) Post term over 40 weeks: (2) Elevated serum creatinine: (3) S/P section: hgb noted. no issues with dizziness/lightheadedness, no ongoing bleeding. routine care. stable. enc ambulation. Subjective Ambulation: ambulating normally Voiding: no voiding problems Passing Gas:: Yes Diet Tolerance:: regular diet Lochia:: Small Feeding Type:: breast feeding some pain with ambulating. no cp or sob. no n/v. Physical Exam Constitutional WD/WN, vitals as above Respiratory normal respiratory effort, lungs clear to auscultation Cardiovascular Rate/Rhythm: regular rate and regular rhythm Gastrointestinal (Abdomen) Inspection/Auscultation: normal bowel sounds Percussion/Palpation: + abdomen tender (appropriate, fundus 2down, ) and abdomen soft distended. incision c/d/i Musculoskeletal nt calves. tr edema Psychiatric A+Ox3, euthymic affect Results & Data Vital Signs (Past 12 Hours) Vital Signs Temp Pulse Resp BP Pulse Ox 02/22/19 23:35 98.1 F 93 H 16 109/73 96 02/22/19 19:30 98.2 F 108 H 18 117/76 96
[2019-02-23] MEDS: FERROUS SULFATE 325 MG TAB PO SCH (07:31)
[2019-02-23] MEDS: DOCUSATE SODIUM 100 MG CAP PO SCH ×2 (07:31→20:12)
[2019-02-23] MEDS: SIMETHICONE 80 MG CHEW PO SCH ×4 (07:31→20:12)
[2019-02-24] MEDS: IBUPROFEN 600 MG TAB PO PRN ×2 (02:32→08:38)
[2019-02-24] MEDS: OXYCODONE/ACETAMINOPHEN 5mg/325mg TAB PO PRN ×2 (02:32→08:39)
--- NOTE | 2019-02-24 06:19 | Obstetrical Progress Note ---
Date of Service <Shruti Bates MD - Last Filed: 02/24/19 07:53> February 24, 2019 Assessment & Plan <Shruti Bates MD - Last Filed: 02/24/19 07:53> (1) S/P section: Ying is a 28 yo on POD 3 of c/s after failed induction of labor for post dates . - GBS -, Blood Type A+, Rubella immune -Vitals reviewed and WNL -Hemoglobin reviewed: 7.9 down from 11.7 on admission but asymptomatic -patient is doing clinically well discharge instruction reviewed. ready for discharge - After discharge will have [address] Van_. Subjective <Shruti Bates MD - Last Filed: 02/24/19 07:53> Ambulation: ambulating normally Voiding: no voiding problems Passing Gas:: Yes Diet Tolerance:: regular diet Feeding Type:: bottle feeding examined at bedside Physical Exam <Shruti Bates MD - Last Filed: 02/24/19 07:53> General Appearance: Alert, oriented. No acute distress. Cardiac: Regular rate and rhythm, S1 and S2 appreciated. No murmurs/rubs/cedillo ps. Respiratory: Clear to auscultation anterior and posteriorly, no wheezes/rales/rhonchi/crackles. No accessory muscle use. Symmetrical chest rise. Abdomen: Soft, nontender, nondistended. Normoactive bowel sounds throughout. Uterus: Uterine fundus firm, palpable 1 cm above umbilicus. Lower Extremities: No lower extremity edema. No calf pain on compression. Milton's sign negative bilaterally. surgical incision intact, clean, dry. No warmth, erythema, discharge, or dehiscence. Results & Data <Shruti Bates MD - Last Filed: 02/24/19 07:53> Vital Signs (Past 12 Hours) Vital Signs Temp Pulse Resp BP Pulse Ox 02/23/19 23:20 36.6 C 93 H 20 113/75 96 02/23/19 19:50 36.8 C 87 16 120/85 97 <Yolanda Sawyer DO - Last Filed: 02/24/19 08:04> Co-Signing Physician Notes Resident Physician Supervision Note: I was present with Dr. Bates during the history and exam. I discussed the case with the resident and agree with the findings and plan as documented in the not e. Any exceptions or clarifications are listed here: POD#3 doing well. Asymptomatic anemia - rec continue taking PO iron. Reviewed DC instructions. Rx Percocet #20 tabs, [place] PDMP checked. RTO 6wPP. Documented By: Yolanda Sawyer DO Resident Activity Tracking <Shruti Bates MD - Last Filed: 02/24/19 07:53> Resident Involvement: Resident Care Provided Care Provided: Adult Hospital Medicine
[2019-02-24] MEDS: FERROUS SULFATE 325 MG TAB PO SCH (08:38)
[2019-02-24] MEDS: SIMETHICONE 80 MG CHEW PO SCH (08:38)
[2019-02-24] MEDS: DOCUSATE SODIUM 100 MG CAP PO SCH (08:38)
[2019-02-24 09:26] VITALS: BP 117/79; PULSE 81; TEMP 98.2; O2SAT 97
--- NOTE | 2019-02-26 10:41 | Discharge Summary ---
Date of Service Date of admission: February 20, 2019 Date of discharge: February 24, 2019 Admission HPI Per Admitting Provider Admission diagnoses: 1. Postdates 41+weeks 2. Induction of Labor 3. Oliguria/unexplained elevated creatinine 4. Remote from delivery Discharge diagnoses: 1. same Discharge Data Procedures Performed Operation Date: 02/21/19 19:05 Actual Procedures Primary Low Transverse Section Hospital Course (1) Post term over 40 weeks: (2) Encounter for induction of labor: (3) Unfavorable cervix in term : (4) Elevated serum creatinine: (5) Oliguria: (6) S/P section: 28yo at 41+wks admitted for planned induction for postdatism with unfavorable cervix. Underwent ripening of cervix at first with oral cytotec and then had bai ripening balloon placed and pitocin was begun. Ultimately balloon in vagina and amniotomy performed. IUPC placed ultimately to help to increase pitocin to try to achieve adequate labor pattern. This was difficult. Cervix was not progressing but patient also with oliguria and elevated creatinine remote from delivery. Counseled about options and recommended section. Procedure performed with delivery of greater than 10# fetus. Postop recovery uncomplicated. Immediately began to put out urine and creatinine returned to normal value. On postoperative day #3, stable for discharge home. Instructions given and reviewed. Plan 6 week postop/ followup. Pain medication prescriptions given. Of note postoperative hemoglobin was 7.9 g/dL.
== END 2019-02-24 11:35 | disposition home or self-care (01) | DRG 788 ==
LOC: 4S1 07:13 → 4S2 02-21 23:10
DX: O99.214 Obesity complicating childbirth; O48.0 Post-term pregnancy; O26.893 Other specified pregnancy related conditions, third trimester; O90.81 Anemia of the puerperium; O34.43 Maternal care for other abnormalities of cervix, third trimester; O61.0 Failed medical induction of labor; R94.4 Abnormal results of kidney function studies; Z37.0 Single live birth; Z3A.41 41 weeks gestation of pregnancy

== ENCOUNTER 2019-05-09 21:59 | Inpatient (IN) ==
[2019-05-09] MEDS ORDERED: ACETAMINOPHEN 1,000 MG/100 ML VIAL IV STA (22:17)
[2019-05-09] MEDS ORDERED: ONDANSETRON INJ 2 MG/ML 2 ML VIAL IV STA (22:17)
[2019-05-09] MEDS ORDERED: HYDROmorphone INJ 1 MG/ML SYRINGE IV STA (22:17)
--- NOTE | 2019-05-09 22:24 | Emergency Department Note ---
History of Present Illness General Chief complaint: Kidney Stone Stated complaint: KIDNEY STONE Time Seen by Provider: 05/09/19 22:06 History of Present Illness Maximum Pain Intensity: 8 This is a 29-year-old female presenting to the emergency department for evaluation of right flank and right-sided abdominal pain. The patient was seen and evaluated yesterday in this department where she was diagnosed with 2 right distal ureteral calculi, one at 3 mm and the other at 5 mm. She did have some mild hydronephrosis and urine that was concerning for infection. We did speak with urology yesterday, who were comfortable following with the patient as an outpatient. The patient felt well at the time of her discharge yesterday and has been taking Omnicef, oxycodone, and Flomax today. She states that about 3 hours ago she had immediate severe return of pain. She had multiple episodes of emesis and tried to take her oxycodone without any relief of symptoms. She does not report fevers or chills. She rates her current discomfort an 8/10. Home Medications Home Medications Medication Instructions Recorded Confirmed Type cefdinir 300 mg PO BID 10 Days #20 cap 05/08/19 05/09/19 Rx oxycodone 5 mg PO Q6H PRN #15 tab 05/08/19 05/09/19 Rx oxycodone-acetaminophen 1 tab PO Q8H PRN 05/08/19 05/09/19 History tamsulosin [Flomax] 0.4 mg PO HS #14 cap 05/08/19 05/09/19 Rx Allergies Allergy/AdvReac Type Severity Reaction Status Date / Time No Known Allergies Allergy Verified 05/08/19 20:56 Past Med/Surg History Medical History History of breast disorder History of cardiac murmur History of ovarian cyst Kidney stone Surgical History S/P section (Resolved) History of wisdom tooth extraction Social History Preferred Language: [place] Islander Communication Ability: Effective Manager Residential Required: No Beliefs That Will Affect Care: None marital status: Current Living Situation: Spouse and Family Current Living Situation Comment: and dtr Feels Safe at Home: Yes Smoking Status: Never smoker Second Hand Exposure: No ; Hx Alcohol Use: Yes Hx Substance Use: No Review of Systems A total of 10 systems reviewed and were otherwise negative Physical Exam Vital Signs Vital Signs - 24 hr 05/09/19 22:01 05/09/19 22:28 05/09/19 22:37 Temperature 36.9 C Temperature Source Oral Sepsis Recent Fever Within 48 Hours No Sepsis Action Taken by Nursing No Action Required Pulse Rate 83 Pulse Rate [Right Finger] 77 Pulse Rhythm [Right Finger] Regular Pulse Strength [Right Finger] Normal Respiratory Rate 22 22 Respiratory Effort / Characteristics Non-Labored Spontaneous Non-Labored Respiratory Depth Normal Normal Respiratory Pattern Regular Regular Blood Pressure 153/67 H Blood Pressure [Right Arm] 116/95 Blood Pressure Mean 95 Blood Pressure Mean [Right Arm] 102 Blood Pressure Position Sitting Blood Pressure Position [Right Arm] Sitting Pulse Oximetry 99 93 86 L Oxygen Delivery Method Room Air Room Air Room Air Oxygen Flow Rate 05/09/19 22:38 05/09/19 22:57 05/10/19 00:07 Temperature Temperature Source Sepsis Recent Fever Within 48 Hours Sepsis Action Taken by Nursing Pulse Rate Pulse Rate [Right Finger] 57 L 76 Pulse Rhythm [Right Finger] Pulse Strength [Right Finger] Respiratory Rate 18 18 Respiratory Effort / Characteristics Respiratory Depth Respiratory Pattern Blood Pressure Blood Pressure [Right Arm] 129/83 136/78 Blood Pressure Mean Blood Pressure Mean [Right Arm] 98 97 Blood Pressure Position Blood Pressure Position [Right Arm] Pulse Oximetry 98 99 99 Oxygen Delivery Method Nasal Cannula Nasal Cannula Nasal Cannula Oxygen Flow Rate 2 2 2 05/10/19 01:00 Temperature Temperature Source Sepsis Recent Fever Within 48 Hours Sepsis Action Taken by Nursing Pulse Rate Pulse Rate [Right Finger] 81 Pulse Rhythm [Right Finger] Pulse Strength [Right Finger] Respiratory Rate 18 Respiratory Effort / Characteristics Respiratory Depth Respiratory Pattern Blood Pressure Blood Pressure [Right Arm] 143/96 H Blood Pressure Mean Blood Pressure Mean [Right Arm] 111 Blood Pressure Position Blood Pressure Position [Right Arm] Lying Pulse Oximetry 95 Oxygen Delivery Method Room Air Oxygen Flow Rate VITALS: Vitals are noted on the nurse's note and reviewed by myself. Vital signs stable. GENERAL: Well-developed, well-nourished, white female who appears in moderate to severe discomfort. She is crying on examination. HEART: Regular rate and rhythm without murmurs gallops or rubs. LUNGS: Clear to auscultation bilaterally without wheezes, rales or rhonchi. No retractions or accessory muscle use. ABDOMEN: Positive normal bowel sounds x 4. Soft, nontender, without masses or organomegaly. No guarding or rebound tenderness. MUSCULOSKELETAL: No muscle atrophy, erythema, or edema noted. Full range of motion in all extremities. NEURO: Patient was alert and oriented to person place and time. CN II through XII grossly intact. Course Administered Medications Hydromorphone HCl (Dilaudid) 1 mg IV Q4H PRN PRN Reason: Pain Stop: 05/24/19 01:33 Last Admin: 05/10/19 01:44 Dose: 1 mg Documented by: [id number] Sodium Chloride (Nss 1000ml) 1,000 mls @ 125 mls/hr IV .Q8H BRYAN Stop: 05/10/19 17:44 Last Admin: 05/10/19 01:56 Dose: 125 mls/hr Documented by: [id number] Acetaminophen (Ofirmev) 1,000 mg in 100 mls @ 400 mls/hr IV Q8H PRN PRN Reason: Pain Stop: 06/09/19 01:33 Last Infusion: 05/10/19 02:35 Dose: 0 mls/hr Documented by: [id number] Admin: 05/10/19 02:20 Dose: 400 mls/hr Documented by: [id number] Ceftriaxone Sodium 2,000 mg/ (Dextrose) 70 mls @ 100 mls/hr IV Q24H BRYAN; Protocol Stop: 05/15/19 01:59 Last Infusion: 05/10/19 03:05 Dose: 0 mls/hr Documented by: [id number] Admin: 05/10/19 02:21 Dose: 100 mls/hr Documented by: [id number] Promethazine HCl 12.5 mg/ (Sodium Chloride) 50.5 mls @ 202 mls/hr IV ONE ONE Stop: 05/10/19 04:59 Last Admin: 05/10/19 04:49 Dose: 202 mls/hr Documented by: [id number] Ondansetron HCl (Zofran) 4 mg IV Q6H PRN PRN Reason: Nausea Stop: 06/09/19 01:33 Last Admin: 05/10/19 01:44 Dose: 4 mg Documented by: [id number] Discontinued Medications Hydromorphone HCl (Dilaudid) 1 mg IV NOW STA Stop: 05/09/19 22:18 Last Admin: 05/09/19 22:27 Dose: 1 mg Documented by: [id number] Hydromorphone HCl (Dilaudid) 1 mg IV NOW STA Stop: 05/10/19 04:32 Last Admin: 05/10/19 04:48 Dose: 1 mg Documented by: [id number] Acetaminophen (Ofirmev) 1,000 mg in 100 mls @ 400 mls/hr IV NOW STA Stop: 05/09/19 22:31 Last Infusion: 05/09/19 22:58 Dose: 0 mls/hr Documented by: [id number] Admin: 05/09/19 22:27 Dose: 400 mls/hr Documented by: [id number] Sodium Chloride (Nss 1000ml) 1,000 mls @ 999 mls/hr IV .Q1H1M BRYAN Stop: 05/09/19 23:30 Last Infusion: 05/09/19 23:28 Dose: 0 mls/hr Documented by: [id number] Admin: 05/09/19 22:27 Dose: 999 mls/hr Documented by: [id number] Ondansetron HCl (Zofran) 4 mg IV NOW STA Stop: 05/09/19 22:18 Last Admin: 05/09/19 22:27 Dose: 4 mg Documented by: [id number] Medical Decision Making Differential Diagnosis Differential diagnosis: Etiologies such as shingles, pyelonephritis/UTI, renal colic, appendicitis, diverticulitis, mesenteric ischemia, torsion, aortic pathology, infections, inflammatory bowel disease, bowel obstruction, PUD, biliary pathology, as well as others were entertained. Laboratory Data Result diagrams: 05/09/19 22:17 05/09/19 22:17 Lab Results 05/09/19 05/09/19 05/10/19 Range/Units 22:17 22:17 00:13 WBC 6.51 (4.8-10.8) K/uL RBC 4.11 L (4.2-5.4) M/uL Hgb 11.3 L (12.0-16.0) g/dL Hct 35.9 L (37-47) % MCV 87.3 (80-100) fL MCH 27.5 (25-34) pg MCHC 31.5 L (32-36) g/dL RDW Std Deviation 42.6 (36.4-46.3) fL RDW Coeff of Michael 13.3 (11.5-14.5) % Plt Count (130-400) K/uL MPV (7.4-10.4) fL Immature Gran % (Auto) 0.2 % Neut % (Auto) 49.7 % Lymph % (Auto) 37.3 % [place] % (Auto) 11.7 % Eos % (Auto) 0.8 % Baso % (Auto) 0.3 % Immature Gran # (Auto) 0.01 (0.00-0.02) K/uL Neut # (Auto) 3.24 (1.4-6.5) K/uL Lymph # (Auto) 2.43 (1.2-3.4) K/uL [place] # (Auto) 0.76 H (0.11-0.59) K/uL Eos # (Auto) 0.05 (0-0.5) K/uL Baso # (Auto) 0.02 (0-0.2) K/uL Platelet Estimate Normal (Normal) Sodium 139 (136-145) mmol/L Potassium 3.9 (3.5-5.1) mmol/L Chloride 107 (98-107) mmol/L Carbon Dioxide 27 (21-32) mmol/L Anion Gap 5.0 (3-11) BUN 13 (7-18) mg/dl Creatinine 1.06 (0.6-1.2) mg/dl Est Cr Clr Drug Dosing 98.8 ml/min Est GFR ( Amer) 82.8 Est GFR (Non-Af Amer) 71.4 BUN/Creatinine Ratio 12.0 (10-20) Glucose 104 H (70-99) mg/dl Calcium 9.1 (8.5-10.1) mg/dl Total Bilirubin 0.3 (0.2-1) mg/dl AST 20 (15-37) U/L ALT 22 (12-78) U/L Alkaline Phosphatase 88 (45-117) U/L Total Protein 7.5 (6.4-8.2) gm/dl Albumin 3.9 (3.4-5.0) gm/dl Globulin 3.6 (2.5-4.0) gm/dl Albumin/Globulin Ratio 1.1 (0.9-2) Urine Color Yellow Urine Appearance Clear (Clear) Urine pH 6.5 (4.5-7.5) Ur Specific [place] 1.022 (1.000-1.030) Urine Protein Negative (Negative) Urine Glucose (UA) Negative (Negative) Urine Ketones Negative (Negative) Urine Blood Negative (Negative) Urine Nitrite Negative (Negative) Urine Bilirubin Negative (Negative) Urine Urobilinogen Negative (Negative) Ur Leukocyte Esterase Negative (Negative) MDM Narrative Physical exam and history were performed. Nursing notes, EMR, and Medication List were personally reviewed. Patient appears to have right ureteral colic. She had imaging studies performed less than 24 hours ago, and additional imaging was not felt to be necessary. IV access was established and labs were obtained. The patient was given 1 mg IV Dilaudid, 1 g IV Tylenol, 4 mg IV Zofran, and 1 L normal saline. Urine was collected. The patient's blood work is as above and was reviewed. She does not have a significantly elevated white blood cell count, gross anemia, bandemia, or significant electrolyte imbalance. Urine is with bacteria and white cells, which certainly may represent infection. On reevaluation the patient's symptoms improved, and she currently rates her pain a 3/10. I did discuss options of care with the patient, who does not feel comfortable with discharge home as she failed outpatient treatment once. The case was discussed with Dr. Cheung of urology, as well as with the on-call hospitalist service. Please see their dictations for further patient course, plan, and disposition. The chart was completed utilizing [employer] Speech Voice Recognition Software. Grammatical errors, random word insertions, pronoun errors, and incomplete sentences are an occasional consequence of this system due to software limitations, ambient noise, and hardware issues. Any formal questions or concerns about the content, text, or information contained within the body of this dictation should be directly addressed to the provider for clarification. . Impression & Plan Renal colic on right side, UTI (urinary tract infection) Discharge Plan Visit Data *Final* Discharge Date/Time: 05/10/19 01:24 Chief Complaint: Kidney Stone Stated Complaint: KIDNEY STONE ED Provider: Dank Fernandes ED Midlevel Provider: Castro Sepulveda Discharge Problem: Renal colic on right side, UTI (urinary tract infection) Patient Disposition: Admitted As Inpatient Discharge Instructions Interventions: ED Discharge Assessment Last Done: 05/10/19 01:24
[2019-05-09] MEDS ORDERED: SODIUM CHLORIDE 0.9% 1000ML 1,000 ML IV SCH (22:30)
[2019-05-09 22:48] LABS: Albumin Level 3.9 gm/dl (3.4-5.0); Calcium 9.1 mg/dl (8.5-10.1); Creatinine Clr Calc Pharmacy 98.8 ml/min; Est GFR (African American) 82.8; Est GFR (Non-African American) 71.4; Potassium 3.9 mmol/L (3.5-5.1)
[2019-05-09 22:51] LABS: Albumin Globulin Ratio 1.1 (0.9-2); Bilirubin,Total 0.3 mg/dl (0.2-1); Globulin 3.6 gm/dl (2.5-4.0); Total Protein 7.5 gm/dl (6.4-8.2)
[2019-05-09 22:57] LABS: Hematocrit (blood only) 35.9 % (37-47); Hemoglobin 11.3 g/dL (12.0-16.0); Mean Corpuscular Hemoglobin 27.5 pg (25-34); Mean Corpuscular Hgb Conc 31.5 g/dL (32-36); Mean Corpuscular Volume 87.3 fL (80-100); RDW Coefficient of Variation 13.3 % (11.5-14.5); RDW Standard Deviation 42.6 fL (36.4-46.3); Red Blood Count 4.11 M/uL (4.2-5.4); White Blood Count 6.51 K/uL (4.8-10.8)
[2019-05-09 22:58] LABS: Basophils # (auto) 0.02 K/uL (0-0.2); Basophils % (auto) 0.3 %; Eosinophils # (auto) 0.05 K/uL (0-0.5); Eosinophils % (auto) 0.8 %; Immature Granulocytes # (auto) 0.01 K/uL (0.00-0.02); Immature Granulocytes % (auto) 0.2 %; Lymphocytes # (auto) 2.43 K/uL (1.2-3.4); Lymphocytes % (auto) 37.3 %; Monocytes # (auto) 0.76 K/uL (0.11-0.59); Monocytes % (auto) 11.7 %; Neutrophils # (auto) 3.24 K/uL (1.4-6.5); Neutrophils % (auto) 49.7 %; Platelet Estimate Normal (Normal)
[2019-05-10 00:19] LABS: Appearance Urine Clear (Clear); Bilirubin Urine Negative (Negative); Blood Urine Negative (Negative); Color Urine Yellow; Glucose Urine UA Negative (Negative); Ketones Urine Negative (Negative); Leukocyte Esterase Urine Negative (Negative); Nitrite Urine Negative (Negative); Protein Urine Negative (Negative); Specific Gravity Urine 1.022 (1.000-1.030); Urobilinogen Urine Negative (Negative); pH Urine 6.5 (4.5-7.5)
--- NOTE | 2019-05-10 01:10 | Urology Consultation ---
Date of Consultation May 10, 2019 Assessment & Plan (1) Renal colic on right side: A/P 29-year-old female with persistent right distal ureteral stones and recurrent colic. Findings and imaging reviewed with the patient who is well versed in the surgical management of stone disease. She strongly wishes to have this issue resolved promptly. We will leave n.p.o. and plan on proceeding with a cystoscopy, right retrograde pyelography, right ureteroscopy with laser lithotripsy, basket stone extraction and ureteral stent placement later today to resolve her symptoms. Expected stent irritation, risks and benefits reviewed. Will await timing of intervention depending on OR schedule. Thank you for allowing us to participate in this patient's acute care. Please contact our service with any questions or concerns. History of Present Illness Reason for Consultation: Recurrent colic due to right distal ureteral stones x 2. History of Present Illness Patient is a pleasant 29-year-old female, employee of the [employer] system who returns to the emergency room after having been seen here approximately 24 hours ago for recurrent right lower quadrant and flank pain due to persistent ureteral stones. Patient is and initially presented with her stones approximately 6 weeks ago to the emergency room. Her pain resolved and she suspected that her stones had passed. Unfortunately her pain recurred a day ago causing her to return to the emergency room. CT scan images from March and more recently are compared personally and reviewed with the patient; these demonstrate essentially unchanged stone locations over the past 6 weeks. Patient is currently being admitted for pain control. Urology consultation is sought out to assist with her acute care. She has not seen our service previously for her stone disease. Allergies Allergy/AdvReac Type Severity Reaction Status Date / Time No Known Allergies Allergy Verified 05/08/19 20:56 Home Medications Home Medications Medication Instructions Recorded Confirmed Type cefdinir 300 mg PO BID 10 Days #20 cap 05/08/19 05/09/19 Rx oxycodone 5 mg PO Q6H PRN #15 tab 05/08/19 05/09/19 Rx oxycodone-acetaminophen 1 tab PO Q8H PRN 05/08/19 05/09/19 History tamsulosin [Flomax] 0.4 mg PO HS #14 cap 05/08/19 05/09/19 Rx Patient History Medical History History of breast disorder History of cardiac murmur History of ovarian cyst Kidney stone Surgical History S/P section (Resolved) History of wisdom tooth extraction Social History Preferred Language: Haitian Communication Ability: Effective Side Stitcher Required: No Beliefs That Will Affect Care: None marital status: Current Living Situation: Spouse Feels Safe at Home: Yes Smoking Status: Never smoker Second Hand Exposure: No ; Hx Alcohol Use: No Hx Substance Use: No Review of Systems Constitutional: no fever and no chills Eyes: no diplopia Ear, Nose, Mouth, Throat: no ear trauma Respiratory: no hemoptysis Cardiovascular: no chest pain Gastrointestinal: + abdominal pain Musculoskeletal: + back pain Integumentary: no acne and no boil Neurologic: no paralysis Psychiatric: no hopelessness Hematologic / Lymphatic: no easy bleeding Allergy / Immunological: no tongue swelling Physical Exam Constitutional: well developed, well nourished and + acute distress (Visibly uncomfortable) Eyes: eyes not dysmorphic ENMT: Ears: no external ear abnormality Neck: trachea midline; no anterior neck swelling Respiratory: no respiratory distress and does not use accessory muscles Cardiovascular: Vessels: radial pulses present Gastrointestinal (Abdomen): Inspection/Auscultation: abdomen not distended Percussion/Palpation: abdomen soft Musculoskeletal: Head/Neck/Chest: normocephalic and neck supple Skin: normal turgor Neurologic: awake; not obtunded Psychiatric: Orientation: oriented x 3 Lymphatic: no lymphadenopathy Results & Data Vital Signs (Past 12 Hours) Vital Signs Temp Pulse Pulse Resp BP BP Pulse Ox 05/10/19 01:00 81 18 143/96 H 95 05/10/19 00:07 76 18 136/78 99 05/09/19 22:57 57 L 18 129/83 99 05/09/19 22:38 98 05/09/19 22:37 86 L 05/09/19 22:28 77 22 116/95 93 05/09/19 22:01 36.9 C 83 22 153/67 H 99 Laboratory Results Laboratory Results - last 48 hr 05/09/19 05/09/19 05/10/19 22:17 22:17 00:13 WBC 6.51 RBC 4.11 L Hgb 11.3 L Hct 35.9 L MCV 87.3 MCH 27.5 MCHC 31.5 L RDW Std Deviation 42.6 RDW Coeff of Michael 13.3 Plt Count MPV Immature Gran % (Auto) 0.2 Neut % (Auto) 49.7 Lymph % (Auto) 37.3 [place] % (Auto) 11.7 Eos % (Auto) 0.8 Baso % (Auto) 0.3 Immature Gran # (Auto) 0.01 Neut # (Auto) 3.24 Lymph # (Auto) 2.43 [place] # (Auto) 0.76 H Eos # (Auto) 0.05 Baso # (Auto) 0.02 Platelet Estimate Normal Sodium 139 Potassium 3.9 Chloride 107 Carbon Dioxide 27 Anion Gap 5.0 BUN 13 Creatinine 1.06 Est Cr Clr Drug Dosing 98.8 Est GFR ( Amer) 82.8 Est GFR (Non-Af Amer) 71.4 BUN/Creatinine Ratio 12.0 Glucose 104 H Calcium 9.1 Total Bilirubin 0.3 AST 20 ALT 22 Alkaline Phosphatase 88 Total Protein 7.5 Albumin 3.9 Globulin 3.6 Albumin/Globulin Ratio 1.1 Urine Color Yellow Urine Appearance Clear Urine pH 6.5 Ur Specific [place] 1.022 Urine Protein Negative Urine Glucose (UA) Negative Urine Ketones Negative Urine Blood Negative Urine Nitrite Negative Urine Bilirubin Negative Urine Urobilinogen Negative Ur Leukocyte Esterase Negative PG Care Time/CCT Total # of Minutes Spent Total Time Spent with Patient: Total time spent is greater than 50% in coordination of care (as documented) at patient's floor/unit and/or counseling patient:
--- NOTE | 2019-05-10 01:19 | History & Physical Report ---
Date of Service May 10, 2019 Assessment & Plan (1) Renal colic on right side: Patient with obstructing calculi x 2 in right ureter, moderate hydronephrosis. +Pain +Nausea. -Admit to medical floor -Pain control with Ofirmev and Dilaudid PRN -Nausea control with Zofran PRN -Colace PRN -Urine strainer -NSS at 125mL/hr -Flomax 0.4mg po daily -Keep patient NPO for stent placement tomorrow -Urology consultation appreciated Present on Admission?: Yes (2) UTI (urinary tract infection): Patient with +UA yesterday. She was discharged on Cefdinir. Afebrile, hemodynamically stable, UA negative -Ceftriaxone 1gm IV daily -Follow cultures F/E/N - NSS at 125mL/hr, monitor electrolytes and replete as needed, NPO for now for ureteral stent placement in AM Ppx - Low risk for DVT Code - FUll Dispo - Admit to medical floor History of Present Illness Chief Complaint: ureteral calculie Primary Care Provider: Colten Kramer Ying Banuelos is a pleasant 29yo C female presenting with obstructing calculi of the distal right ureter. She was seen in the ER last night with similar complaints. CT of the abdomen was performed which revealed 2 obstructing calculi in the distal right ureter measuring 5 and 3mm proximally. Moderate right hydronephrosis. She was discharged home with Cefdinir, Flomax and Oxycodone. Pain returned this evening around 20:00, severe right flank pain associated with nausea and non-bloody/non-bilious vomiting. No additional complaints. ER Course: Acetaminophen 1gm IV, Dilaudid 1mg IV, Zofran 4mg IV, NSS x 1L Allergies Allergy/AdvReac Type Severity Reaction Status Date / Time No Known Allergies Allergy Verified 05/08/19 20:56 Home Medications Home Medications Medication Instructions Recorded Confirmed Type cefdinir 300 mg PO BID 10 Days #20 cap 05/08/19 05/09/19 Rx oxycodone 5 mg PO Q6H PRN #15 tab 05/08/19 05/09/19 Rx oxycodone-acetaminophen 1 tab PO Q8H PRN 05/08/19 05/09/19 History tamsulosin [Flomax] 0.4 mg PO HS #14 cap 05/08/19 05/09/19 Rx Past Med/Surg History Medical History History of breast disorder History of cardiac murmur History of ovarian cyst Kidney stone Surgical History S/P section (Resolved) History of wisdom tooth extraction Social History Preferred Language: Luxembourgish Communication Ability: Effective Ruling Machine Feeder Required: No Beliefs That Will Affect Care: None marital status: Current Living Situation: Spouse Feels Safe at Home: Yes Smoking Status: Never smoker Second Hand Exposure: No ; Hx Alcohol Use: No Hx Substance Use: No Review of Systems Review of Systems: All systems reviewed & are unremarkable except as noted in HPI & below No fevers/chills/sweats/rigors/dysuria Physical Exam Physical Exam: General: patient in moderate discomfort, tearful, non-toxic in appearance, AA&O x 4 Skin: warm, dry, intact, no rashes or lesions HEENT: NC/AT, PERRL, EOMI, anicteric sclera, conjunctiva without injection, external ear normal to inspection and nontender, nares patent, moist mucus membranes, dentition intact, no oropharyngeal lesions, neck supple, trachea midline, no LAD, no thyromegaly, no JVD Heart: +S1/S2, regular, no m/r/g Lungs: equal air entry bilaterally, no rales/rhonchi/wheezes Abd: +BS, soft, NT/ND, no masses/organomegaly/ascites Ext: warm, 2+ pulses in UE/LE bilaterally, no clubbing/cyanosis or edema Neuro: nonfocal, patient AA&O x 4, speech intact, no facial droop, moving all extremities on command with equal strength 5/5 Results & Data Vital Signs (Past 12 Hours) Vital Signs Temp Pulse Pulse Resp BP BP Pulse Ox 05/10/19 00:07 76 18 136/78 99 05/09/19 22:57 57 L 18 129/83 99 05/09/19 22:38 98 05/09/19 22:37 86 L 05/09/19 22:28 77 22 116/95 93 05/09/19 22:01 36.9 C 83 22 153/67 H 99 Laboratory Results Lab Results 05/09/19 05/09/19 05/10/19 Range/Units 22:17 22:17 00:13 WBC 6.51 (4.8-10.8) K/uL RBC 4.11 L (4.2-5.4) M/uL Hgb 11.3 L (12.0-16.0) g/dL Hct 35.9 L (37-47) % MCV 87.3 (80-100) fL MCH 27.5 (25-34) pg MCHC 31.5 L (32-36) g/dL RDW Std Deviation 42.6 (36.4-46.3) fL RDW Coeff of Michael 13.3 (11.5-14.5) % Plt Count (130-400) K/uL MPV (7.4-10.4) fL Immature Gran % (Auto) 0.2 % Neut % (Auto) 49.7 % Lymph % (Auto) 37.3 % [place] % (Auto) 11.7 % Eos % (Auto) 0.8 % Baso % (Auto) 0.3 % Immature Gran # (Auto) 0.01 (0.00-0.02) K/uL Neut # (Auto) 3.24 (1.4-6.5) K/uL Lymph # (Auto) 2.43 (1.2-3.4) K/uL [place] # (Auto) 0.76 H (0.11-0.59) K/uL Eos # (Auto) 0.05 (0-0.5) K/uL Baso # (Auto) 0.02 (0-0.2) K/uL Platelet Estimate Normal (Normal) Sodium 139 (136-145) mmol/L Potassium 3.9 (3.5-5.1) mmol/L Chloride 107 (98-107) mmol/L Carbon Dioxide 27 (21-32) mmol/L Anion Gap 5.0 (3-11) BUN 13 (7-18) mg/dl Creatinine 1.06 (0.6-1.2) mg/dl Est Cr Clr Drug Dosing 98.8 ml/min Est GFR ( Amer) 82.8 Est GFR (Non-Af Amer) 71.4 BUN/Creatinine Ratio 12.0 (10-20) Glucose 104 H (70-99) mg/dl Calcium 9.1 (8.5-10.1) mg/dl Total Bilirubin 0.3 (0.2-1) mg/dl AST 20 (15-37) U/L ALT 22 (12-78) U/L Alkaline Phosphatase 88 (45-117) U/L Total Protein 7.5 (6.4-8.2) gm/dl Albumin 3.9 (3.4-5.0) gm/dl Globulin 3.6 (2.5-4.0) gm/dl Albumin/Globulin Ratio 1.1 (0.9-2) Urine Color Yellow Urine Appearance Clear (Clear) Urine pH 6.5 (4.5-7.5) Ur Specific [place] 1.022 (1.000-1.030) Urine Protein Negative (Negative) Urine Glucose (UA) Negative (Negative) Urine Ketones Negative (Negative) Urine Blood Negative (Negative) Urine Nitrite Negative (Negative) Urine Bilirubin Negative (Negative) Urine Urobilinogen Negative (Negative) Ur Leukocyte Esterase Negative (Negative) Diagnostic Findings CT abd pelvis wo con - FROM 05/08/2019 CT DOSE: 977.31 mGycm HISTORY: Flank pain right flank pain TECHNIQUE: Multiaxial CT images of the abdomen and pelvis were performed without contrast. A dose lowering technique was utilized adhering to the principles of ALARA. COMPARISON STUDY: 03/24/2019 FINDINGS: Lung bases are clear. Liver spleen and pancreas are unremarkable. Density adjacent the gastric fundus previously described appears to represent a posterior gastric fundal diverticulum. Nonobstructive bowel pattern. Left kidney is unremarkable. Right kidney shows moderate right hydroureteronephrosis. There are 2 obstructing calculi distal right ureter measuring 5 and 3 mm proximally. Nonobstructive bowel pattern. Normal appendix. IMPRESSION: 1. Obstructing calculi distal right ureter measuring 5 and 3 mm. 2. Mild right hydroureteronephrosis. The above report was generated using voice recognition software. It may contain grammatical, syntax or spelling errors. Electronically signed by: Khurram Davila M.D. 05/08/2019 8:19 PM Dictated: 05/08/192016 Transcribed: 05/08/192016 Code Status & VTE Plan Code Status FULL VTE Prophylaxis Plan VTE Prophylaxis will be ordered: No PG Care Time/CCT Total # of Minutes Spent Total Time Spent with Patient: Total time spent is greater than 50% in coordination of care (as documented) at patient's floor/unit and/or counseling patient: (1) UTI (urinary tract infection) Hematuria presence: without hematuria Urinary tract infection type: site unspecified Qualified Code(s): N39.0 - Urinary tract infection, site not specified
[2019-05-10] MEDS ORDERED: ONDANSETRON INJ 2 MG/ML 2 ML VIAL IV PRN ×2 (01:34→07:13)
[2019-05-10] MEDS ORDERED: ACETAMINOPHEN 1,000 MG/100 ML VIAL IV PRN (01:34)
[2019-05-10] MEDS ORDERED: DOCUSATE SODIUM 100 MG CAP PO PRN (01:34)
[2019-05-10] MEDS ORDERED: HYDROmorphone INJ 1 MG/ML SYRINGE IV PRN ×2 (01:34→07:13)
[2019-05-10] MEDS: SODIUM CHLORIDE 0.9% 1000ML 1,000 ML IV SCH ×2 (01:56→10:05)
[2019-05-10] MEDS ORDERED: cefTRIAXone SODIUM 2,000 MG in DEXTROSE 5% 50 ML IV SCH (02:00)
[2019-05-10] MEDS ORDERED: HYDROmorphone INJ 1 MG/ML SYRINGE IV STA (04:31)
[2019-05-10] MEDS ORDERED: PROMETHAZINE HCL 12.5 MG in SODIUM CHLORIDE 0.9% 50 ML IV PRN ×2 (04:35→07:13)
[2019-05-10] MEDS ORDERED: PROMETHAZINE HCL 12.5 MG in SODIUM CHLORIDE 0.9% 50 ML IV ONE (04:45)
[2019-05-10] MEDS ORDERED: CIPROFLOXACIN 400 MG/200 ML BAG IV SCH (06:00)
[2019-05-10] MEDS ORDERED: PROPOFOL IV EMULSION 10 MG/ML 20 ML VIAL IV ONE (07:11)
[2019-05-10] MEDS ORDERED: DEXAMETHASONE SOD INJ 4 MG/ML VIAL ONE (07:11)
[2019-05-10] MEDS ORDERED: MIDAZOLAM HCL 1 MG/ML 2ML VIAL ONE (07:11)
[2019-05-10] MEDS ORDERED: LIDOCAINE HCL 2% 2 ML VIAL/AMP(20MG/ML) INFIL ONE (07:11)
[2019-05-10] MEDS ORDERED: fentaNYL citrate 100 MCG/2 ML VIAL ONE (07:11)
[2019-05-10] MEDS ORDERED: ONDANSETRON INJ 2 MG/ML 2 ML VIAL ONE (07:11)
[2019-05-10] MEDS ORDERED: ATROPINE SULFATE 0.1 MG/ML 10ML SYR IV PRN (07:13)
[2019-05-10] MEDS ORDERED: KETOROLAC 30 MG/ML VIAL IV PRN (07:13)
--- NOTE | 2019-05-10 07:13 | Anesthesiology Consultation ---
Date of Service May 10, 2019 Assessment & Plan (1) Encounter for pre-operative examination: Chart Review Chart Review: Acceptable Risk for Surgery History Surgery Operation Date: 05/10/19 07:30 Proposed Procedures p Laser Lithotripsy Holmium - Lester Cheung MD s Cystoscopy - Lester Cheung MD Height/Weight Height: 5 ft 7 in Weight: 105.7 kg Allergies Allergy/AdvReac Type Severity Reaction Status Date / Time No Known Allergies Allergy Verified 05/08/19 20:56 Medications Home Medications Medication Instructions Recorded Confirmed Last Taken cefdinir 300 mg PO BID 10 Days #20 cap 05/08/19 05/09/19 05/09/19 06:00 oxycodone 5 mg PO Q6H PRN #15 tab 05/08/19 05/09/19 05/09/19 06:00 oxycodone-acetaminophen 1 tab PO Q8H PRN 05/08/19 05/09/19 Unknown tamsulosin [Flomax] 0.4 mg PO HS #14 cap 05/08/19 05/09/19 Unknown Active Medications Generic Name Dose Route Start Last Admin Trade Name Freq PRN Reason Stop Dose Admin Hydromorphone HCl 1 mg 05/10/19 01:34 05/10/19 01:44 Dilaudid IV 05/24/19 01:33 1 mg Q4H PRN Administration Pain Sodium Chloride 1,000 mls @ 125 mls/hr 05/10/19 01:45 05/10/19 01:56 Nss 1000ml IV 05/10/19 17:44 125 mls/hr .Q8H BRYAN Administration Acetaminophen 1,000 mg in 100 mls @ 400 mls/hr 05/10/19 01:34 05/10/19 02:35 Ofirmev IV 06/09/19 01:33 Infused Q8H PRN Infusion Pain Ceftriaxone Sodium 2,000 mg/ 70 mls @ 100 mls/hr 05/10/19 02:00 05/10/19 03:05 Dextrose IV 05/15/19 01:59 Infused Q24H BRYAN Infusion Protocol Ondansetron HCl 4 mg 05/10/19 01:34 05/10/19 01:44 Zofran IV 06/09/19 01:33 4 mg Q6H PRN Administration Nausea NPO Date Last Intake of Fluids: 05/10/19 Time Last Intake of Fluids: 01:30 Date Last Intake of Solids: 05/10/19 Time Last Intake of Solids: 01:30 Past Medical History Medical History History of breast disorder History of cardiac murmur History of ovarian cyst Kidney stone Past Family History Family History Father Dyslipidemia Hypertension Grandfather (Paternal) Bladder cancer Grandmother (Maternal) Colorectal cancer Past Surgical History Surgical History S/P section (Resolved) History of wisdom tooth extraction Social History Smoking Status: Never smoker Hx Alcohol Use: Yes alcohol intake frequency: holidays/special occasions only Hx Substance Use: No substance use type: does not use Physical Exam Vital Signs Last Vital Signs Temp 36.9 C 05/10/19 07:08 Pulse 74 05/10/19 07:08 Resp 16 05/10/19 07:08 BP 132/85 05/10/19 07:08 Pulse Ox 96 05/10/19 07:08 Testing Laboratory Results 05/09/19 22:17 05/09/19 22:17 Urine Color Yellow 05/10/19 00:13 Urine Appearance Clear (Clear) 05/10/19 00:13 Urine pH 6.5 (4.5-7.5) 05/10/19 00:13 Ur Specific [place] 1.022 (1.000-1.030) 05/10/19 00:13 Urine Protein Negative (Negative) 05/10/19 00:13 Urine Glucose (UA) Negative (Negative) 05/10/19 00:13 Urine Ketones Negative (Negative) 05/10/19 00:13 Urine Nitrite Negative (Negative) 05/10/19 00:13 Ur Leukocyte Esterase Negative (Negative) 05/10/19 00:13
[2019-05-10] MEDS ORDERED: IOTHALAMATE MEGLUMINE II 17.2% 250 ML VIAL ONE (07:42)
[2019-05-10 07:59] LABS: Pregnancy Test, Serum Negative (Negative)
--- NOTE | 2019-05-10 08:16 | Operative Report ---
PG Post Operative Report Pre & Post Diagnosis Operation Date: 05/10/19 07:30 Preoperative diagnosis: Persistent right distal ureteral stones with intractable colic. Postoperative diagnosis: Same. Procedure: Cystoscopy, right retrograde pyelography, right semirigid ureteroscopy with laser lithotripsy, basket stone extraction and ureteral stent placement. Surgeon: Dr. Lester Cheung. Space Systems Operations Craftsman: None. Anesthesia: General anesthesia with laryngeal mask. Drains left in place: 6 Divehi 26 cm loop stent on the right-hand side. Specimen sent pathology: Right ureteral stone fragments for chemical analysis. Findings: No residual stones after completion of case in the right distal ureter, good stent position on fluoroscopic examination. EBL: Minimal I identified the patient and participated in the time-out.: Yes Procedure Operation Date: 05/10/19 07:30 Brief history: Patient is a pleasant 29-year-old female with a history of right distal ureteral stones with that persisted over approximately 6 weeks time. She is admitted for recurrent and intractable colic. After discussion of risks and benefits of various forms of intervention she is decided upon endoscopic management acutely today. She is being brought to the operating room for this purpose. Please see urology consultation for further details. SCDs used for DVT prophylaxis and intravenous ciprofloxacin use for antibiotic coverage. Informed consent is obtained from the patient preoperatively today. Procedure: Patient was properly identified and brought into the operative suite after identification of appropriate consent in the chart. General anesthesia with laryngeal mask was initiated and patient was prepped and draped in the standard fashion for this procedure. Full timeout procedure was followed. 22 Divehi rigid cystoscope was introduced into the bladder the bladder was surveyed in its entirety quitting 30 and 70 degree lenses demonstrating no intravesical lesions, papillary masses or calculi. Ureteral orifices were appreciated in the normal anatomic location bilaterally. Rfid Technician imaging was able to visualize the patient's 2 stones in the distal right ureter prior to introduction of contrast. Right-sided ureteral orifice was addressed using an open-ended catheter and gentle retrograde pyelography was performed. This demonstrated proximal hydroureteronephrosis with filling defects distally consistent with the patient's previous imaging findings. Sensor tip wire was advanced to the level of the right kidney and kept until the end of the case as a safety wire. Short semirigid ureteroscope was advanced into the right distal ureter without the need for dilation and advanced to the level of the stones. 200 m fiber was used to fragment these into smaller pieces which were then grasped using a 0 tip basket. These were extracted and sent for chemical analysis. Ureteroscope was returned to the ureter and advanced to the level of the mid ureter demonstrating no residual stones, ureteral injuries or other abnormalities. Complete exit ureteroscopy confirmed the same. Cystoscope was backloaded over the safety wire and a 6 Divehi 26 cm loop stent was advanced with redundant stent being present at the level of the right renal pelvis and redundant loops within the bladder. Bladder was drained and cystoscope was removed. Anesthesia was reversed and patient was transferred to the recovery room in stable condition. Follow-up CARE: Patient will be readmitted to the floor but should be stable for discharge home later today. Will arrange for outpatient follow-up for cystoscopy and stent removal. Will provide prescriptions for Pyridium as needed, tamsulosin as needed, pain medication if still needed in a short course of ciprofloxacin. Patient is not breast-feeding per her report. Family phone to review results per the patient's request. Surgeon Lester Cheung MD Space Systems Operations Craftsman None Estimated Blood Loss 0 Findings Consistent with Post-Op Diagnosis Specimens Right distal ureteral stones for chemical analysis Description of Procedure See above I attest to the content of the Intraoperative Record and any orders documented therein. Any exceptions are noted below.
[2019-05-10] MEDS ORDERED: KETOROLAC 30 MG/ML VIAL ONE (08:52)
--- NOTE | 2019-05-10 08:57 | Fluoroscopy Report ---
FL retrograde includes kub CLINICAL HISTORY: STENT PLACEMENTlithotripsy COMPARISON STUDY: 05/08/2019 FLUOROSCOPY TIME: 34 seconds NUMBER OF FLUOROSCOPIC IMAGES: 5 FINDINGS: Retrograde opacification demonstrates a filling defect of the distal right ureter. This is followed by lithotripsy and placement of a right ureteral stent. IMPRESSION: Successful right lazar lithotripsy and successful right ureteral stent placement The above report was generated using voice recognition software. It may contain grammatical, syntax or spelling errors. Electronically signed by: Khurram Davila M.D. 05/10/2019 8:56 AM
--- NOTE | 2019-05-10 09:21 | Anesthesiology Progress Note ---
Date of Service May 10, 2019 Anesthesia Post Procedure Vital Signs Vital Signs: Temp Pulse Pulse Pulse Resp BP BP 05/10/19 09:15 63 14 114/68 05/10/19 09:05 69 13 116/68 05/10/19 08:59 36.9 C 74 12 115/69 05/10/19 07:08 36.9 C 74 16 132/85 05/10/19 02:07 36.7 C 88 16 148/87 H 05/10/19 01:36 36.7 C 85 16 148/87 H 05/10/19 01:30 36.7 C 88 16 148/87 H 05/10/19 01:00 81 18 143/96 H 05/10/19 00:07 76 18 136/78 05/09/19 22:57 57 L 18 129/83 05/09/19 22:38 05/09/19 22:37 05/09/19 22:28 77 22 116/95 05/09/19 22:01 36.9 C 83 22 153/67 H Pulse Ox 05/10/19 09:15 99 05/10/19 09:05 99 05/10/19 08:59 94 05/10/19 07:08 96 05/10/19 02:07 96 05/10/19 01:36 95 05/10/19 01:30 96 05/10/19 01:00 95 05/10/19 00:07 99 05/09/19 22:57 99 05/09/19 22:38 98 05/09/19 22:37 86 L 05/09/19 22:28 93 05/09/19 22:01 99 Pain Intensity Right Flank: Pain Intensity: 10 Transfer of Care Handoff Completed per policy Notes Mental Status: alert / awake / arousable Patient Amnestic to Procedure: Yes Nausea / Vomiting: adequately controlled Pain: adequately controlled Airway Patency, RR, SpO2: stable & adequate BP & HR: stable & adequate Hydration State: stable & adequate Anesthetic Complications: no major complications apparent
[2019-05-10] MEDS ORDERED: PHENAZOPYRIDINE HCL 200 MG TAB PO PRN (09:48)
--- NOTE | 2019-05-10 11:59 | Hospitalist Progress Note ---
Date of Service May 10, 2019 Assessment & Plan (1) Renal colic on right side: Patient with obstructing calculi x 2 in right ureter, moderate hydronephrosis. +Pain +Nausea. -Admit to medical floor -Pain control with Ofirmev and Dilaudid PRN -Nausea control with Zofran PRN -Colace PRN -Urine strainer -NSS at 125mL/hr -Flomax 0.4mg po daily -Urology consultation appreciated -- to OR this morning for lithotripsy and stent placement Regular diet If patient tolerates diet this afternoon, may be d/c'd and follow up with Dr. Cheung in 2 weeks for stent removal. Will send home on oral abx (2) UTI (urinary tract infection): Patient with +UA yesterday. She was discharged on Cefdinir. Afebrile, hemodynamically stable, UA negative -Ceftriaxone 1gm IV daily -Follow cultures F/E/N - NSS at 125mL/hr, monitor electrolytes and replete as needed, NPO for now for ureteral stent placement in AM Ppx - Low risk for DVT Code - FUll Dispo - Admit to medical floor Subjective Patient seen this afternoon after lithotripsy and stent placement. She states she hasn't eaten anything yet, but states she no longer has abdominal pain. She states she is tired. Denies fevers, chills, chest pain, shortness of breath, abdominal pain, n/v/d. Results & Data Vital Signs (Past 12 Hours) Vital Signs Temp Pulse Pulse Resp BP Pulse Ox 05/10/19 11:25 73 16 111/74 94 05/10/19 10:20 75 16 120/80 95 05/10/19 09:50 36.9 C 60 14 113/78 98 05/10/19 09:25 36.4 C L 69 14 114/68 95 05/10/19 09:15 63 14 114/68 99 05/10/19 09:05 69 13 116/68 99 05/10/19 08:59 36.9 C 74 12 115/69 94 05/10/19 07:08 36.9 C 74 16 132/85 96 05/10/19 02:07 36.7 C 88 16 148/87 H 96 05/10/19 01:36 36.7 C 85 16 148/87 H 95 05/10/19 01:30 36.7 C 88 16 148/87 H 96 05/10/19 01:00 81 18 143/96 H 95 05/10/19 00:07 76 18 136/78 99 PG Care Time/CCT Total # of Minutes Spent Total Time Spent with Patient: Total time spent is greater than 50% in coordin ation of care (as documented) at patient's floor/unit and/or counseling patient:
--- NOTE | 2019-05-10 16:05 | Discharge Summary ---
Date of Service May 10, 2019 Admission HPI Per Admitting Provider Ying Banuelos is a pleasant 29yo C female presenting with obstructing calculi of the distal right ureter. She was seen in the ER last night with similar complaints. CT of the abdomen was performed which revealed 2 obstructing calculi in the distal right ureter measuring 5 and 3mm proximally. Moderate right hydronephrosis. She was discharged home with Cefdinir, Flomax and Oxycodone. Pain returned this evening around 20:00, severe right flank pain associated with nausea and non-bloody/non-bilious vomiting. No additional complaints. ER Course: Acetaminophen 1gm IV, Dilaudid 1mg IV, Zofran 4mg IV, NSS x 1L Admission Exam Per Admitting Provider General: patient in moderate discomfort, tearful, non-toxic in appearance, AA&O x 4 Skin: warm, dry, intact, no rashes or lesions HEENT: NC/AT, PERRL, EOMI, anicteric sclera, conjunctiva without injection, external ear normal to inspection and nontender, nares patent, moist mucus m embranes, dentition intact, no oropharyngeal lesions, neck supple, trachea midline, no LAD, no thyromegaly, no JVD Heart: +S1/S2, regular, no m/r/g Lungs: equal air entry bilaterally, no rales/rhonchi/wheezes Abd: +BS, soft, NT/ND, no masses/organomegaly/ascites Ext: warm, 2+ pulses in UE/LE bilaterally, no clubbing/cyanosis or edema Neuro: nonfocal, patient AA&O x 4, speech intact, no facial droop, moving all extremities on command with equal strength 5/5 Principal Diagnosis Ureterolithiasis Discharge Exam General: patient in moderate discomfort, non-toxic in appearance, AA&O x 4 Skin: warm, dry, intact, no rashes or lesions HEENT: NC/AT, PERRL, EOMI, anicteric sclera, conjunctiva without injection, external ear normal to inspection and nontender, nares patent, moist mucus membranes, dentition intact, no oropharyngeal lesions, neck supple, trachea midline, no LAD, no thyromegaly, no JVD Heart: +S1/S2, regular, no m/r/g Lungs: equal air entry bilaterally, no rales/rhonchi/wheezes Abd: +BS, soft, NT/ND, no masses/organomegaly/ascites Ext: warm, 2+ pulses in UE/LE bilaterally, no clubbing/cyanosis or edema Neuro: nonfocal, patient AA&O x 4, speech intact, no facial droop, moving all extremities on command with equal strength 5/5 Discharge Data Allergies Allergy/AdvReac Type Severity Reaction Status Date / Time No Known Allergies Allergy Verified 05/08/19 20:56 Consultations 05/10/19 00:39 ED Decision to Admit Stat 05/10/19 01:34 Consult Urology Routine Procedures Performed Operation Date: 05/10/19 07:30 Actual Procedures p Cystoscopy, Right retrgograde pyelography, Right semi-rigid ureteroscopy with laser lithotripsy, Basket stone extraction, and Right ureteral stent insertion(Right) - Lester Cheung MD Ordered Studies CT abd pelvis wo con COMPARISON STUDY: 03/24/2019 FINDINGS: Lung bases are clear. Liver spleen and pancreas are unremarkable. Density adjacent the gastric fundus previously described appears to represent a posterior gastric fundal diverticulum. Nonobstructive bowel pattern. Left kidney is unremarkable. Right kidney shows moderate right hydroureteronephrosis. There are 2 obstructing calculi distal right ureter measuring 5 and 3 mm proximally. Nonobstructive bowel pattern. Normal appendix. IMPRESSION: 1. Obstructing calculi distal right ureter measuring 5 and 3 mm 2. Mild right hydroureteronephrosis. 05/10/19 08:06 FL retrograde includes kub Routine CLINICAL HISTORY: STENT PLACEMENT lithotripsy COMPARISON STUDY: 05/08/2019 FLUOROSCOPY TIME: 34 seconds FINDINGS: Retrograde opacification demonstrates a filling defect of the distal right ureter. This is followed by lithotripsy and placement of a right ureteral stent. IMPRESSION: Successful right lazar lithotripsy and successful right ureteral stent placement. Hospital Course (1) Renal colic on right side: * Patient with obstructing calculi x 2 in right ureter, moderate hydronephrosis. +Pain +Nausea. Given ceftriaxone 1g x 1. Patient admitted to medical floor, urology consultation with Dr. Cheung. NSS @ 125cc/hr. Flomax was given. * Patient underwent cystoscopy, right retrograde pyelography, right semirigid ureteroscopy with laser lithotripsy, basket stone extraction and ureteral stent placement. Discharged with resolution of pain and prescription for Pyridium and to continue cefdinir as prescribed outpatient for prophylaxis. Follow-up in [address] Cheung for stent removal. (2) UTI (urinary tract infection): * Patient with previous +UA for leuk esterase, WBC, however epithelial > WBC. She was discharged on Cefdinir for prophylaxis given stent in place as per Urology. Afebrile, hemodynamically stable, UA negative now * Will continue outpatient abx as per Urology Total Time Total Time Spent Total Time Spent (In Minutes): >30 min Discharge Plan Discharge Items Patient Disposition: Home - Self-Care Reason For Visit: HYDRONEPHROSIS, NEPHROLITHIASIS Discharge Diagnosis: Nephrolithiasis, Hydronephrosis Activity: Resume your previous activity Activity Comment: As tolerated Non-emergency contact: Primary Care Provider Call non-emergency contact if: you have any medication questions, your symptoms worsen, your pain is not controlled and you have a fever Follow-up/Referrals: Colten Kramer [Primary Care Provider] - Diet: Regular Addtl Attending Provider Instructions: You have been treated for persistent right kidney stones with intractable pain. You underwent Cystoscopy, right retrograde pyelography, right semirigid ureteroscopy with laser lithotripsy, basket stone extraction and ureteral stent placement by Dr. Cheung. Dr. Cheung has provided you with prescriptions for pyridium (as needed), tamsulosin (as needed) and pain medication if still required for pain. Follow-up with Dr. Cheung in two weeks for cystoscopy and stent removal. Please make sure to stay well hydrated and drink plenty of fluids. You should continue your course of cefdinir as prescribed by the emergency department. Please follow-up with your primary care provider in the next 5-7 days. Please return to the ER with any worsening pain, fever, chills, or for any symptoms that are concerning for you. Pending Studies at Discharge: Yes Studies:: Stone analysis Stand-Alone Forms: [employer], Work/School Release (Inpt), Smoking Cessation Medications and DC Order Prescriptions: New phenazopyridine [Pyridium] 200 mg Tablet 200 mg PO TID PRN (Reason: pain) Qty: 6 RF: 0 Continued oxycodone-acetaminophen 5-325 mg tablet 1 tab PO Q8H PRN (Reason: Pain) RF: 0 oxycodone 5 mg tablet 5 mg PO Q6H PRN (Reason: pain) Qty: 15 RF: 0 tamsulosin [Flomax] 0.4 mg capsule 0.4 mg PO HS Qty: 14 RF: 0 cefdinir 300 mg capsule 300 mg PO BID 10 Days Qty: 20 RF: 0 Discharge Orders: Discharge Order (Routine); Ordered 05/10/19 Ordered By: Myesha Rouse/Other Patient Handouts: Phenazopyridine Hydrochloride Oral tablet Admission Data Admit Date/Time: 05/10/19 01:05 Attending Provider: Ying Garcia Admit Provider: Majo Andrade Primary Care Provider: Colten Kramer Other Providers: Lester Cheung I. Other Interventions: Discharge Summary Assessment (RN) Last Done: 05/10/19 16:47 DC Date/Time DO NOT enter until pt leaves facility: 05/10/19 17:21 Supervising Physician Co-Signing Physician Notes PA Supervision Note: I personally saw and examined the patient. I verified all manning points and agree with ELYSIA Crowell with the following exceptions and/or additions: Pt doing much better now s/p ureteral stent placement and basket stone extraction No pain, no N/V, is otl po, making urine, afebrile VSS NAD, AAOx3 RRR no mgr CTAB no wcr Abd soft +BS NT ND Ext no edema or calf tenderness Stable for dc to home on abx and close f/u with Urol
[2019-05-10] MEDS ORDERED: TAMSULOSIN HCL 0.4 MG CAP PO SCH (21:00)
[2019-05-19 07:57] LABS: Component 2 DNR
== END 2019-05-10 17:21 | disposition home or self-care (01) | DRG 661 ==
LOC: ED 21:59 → 3W 05-10 01:05 → SUATTDRO 05-10 01:05 → 3W 05-10 01:24

== ENCOUNTER 2022-02-16 05:34 | Inpatient (IN) ==
--- NOTE | 2022-02-05 12:39 | Anesthesiology Consultation ---
Date of Service February 05, 2022 Assessment & Plan (1) Encounter for pre-operative examination: - COVID screening: Per assessment on 02/05: No known COVID-19 positive contacts or current COVID-19 related symptoms. Travel screen negative. Patient vaccinated. Surgeon arranging preop COVID testing. Awaiting results. - S/P cytso, laser litho, stent (05/10/19): LMA#4 at [facility]. "Anesthetic Complications: no major complications apparent" per post-op anesthesia progress note. Progress note does indicate pulse ox reading of 86 (rest of recorded levels 93-99%) Chart Review Chart Review: manager clinical informatics initiated History Surgery Operation Date: 02/16/22 07:30 Proposed Procedures p Section in LD (Delivery of Baby Through Abdominal Incision) - Maira Marcus MD, FACOG Height/Weight Height: 5 ft 8 in Weight: 114.305 kg Allergies Allergy/AdvReac Type Severity Reaction Status Date / Time No Known Allergies Allergy Verified 02/05/22 12:01 Medications Home Medications Medication Instructions Recorded Confirmed Last Taken prenat.vits,seema,cdh-sdly-vinrr 1 tab PO QAM 07/10/21 02/05/22 01/30/22 06:00 Past Medical History Medical History Anxiety and depression Hx medical management (discontinued with ) History of breast disorder History of cardiac murmur As a (resolved) History of kidney stones History of ovarian cyst Past Family History Family History Father Dyslipidemia Hypertension Diabetes pre-dm Grandfather (Paternal) Bladder cancer Grandmother (Maternal) Colorectal cancer COPD (chronic obstructive pulmonary disease) Crohn's disease Breast cancer Mother Multiple sclerosis Denies family history of Ovarian cancer Prostate cancer Past Surgical History Surgical History H/O lithotripsy History of anesthesia reaction Cytso, laser litho, stent (05/10/19): LMA#4 at [facility]. "Anesthetic Complications: no major complications apparent" per post-op anesthesia progress note. Post-op progress note does indicate pulse ox reading of 86 (rest of recorded levels 93-99%) History of wisdom tooth extraction S/P section 02/2019 at [facility] Social History Smoking Status: Never smoker Do You Dip or Chew Tobacco: No alcohol intake frequency: holidays/special occasions only Hx Substance Use: No substance use type: does not use Lab Results Anesthesia Preop Results Results Anesthesia Widget: WBC 9.28 K/uL (4.8-10.8) 12/25/21 Hgb 10.7 g/dL (12.0-16.0) L 12/25/21 Hct 32.1 % (37-47) L 12/25/21 Plt 312 K/uL (130-400) 12/25/21 Na 135 mmol/L (136-145) L 12/25/21 K 3.6 mmol/L (3.5-5.1) 12/25/21 Cl 103 mmol/L (98-107) 12/25/21 CO2 24 mmol/L (21-32) 12/25/21 BUN 6 mg/dl (6-23) 12/25/21 Creat 0.54 mg/dl (0.6-1.2) L 12/25/21 Glucose Level 77 mg/dl (70-99(Fasting)) 12/25/21
--- NOTE | 2022-02-15 15:25 | History & Physical Report ---
Date of Service February 15, 2022 Assessment & Plan (1) Encounter for supervision of normal in multigravida, antepartum: Plan: IUP at 39 weeks for repeat C/S . the procedure and it's risks were reviewed with the patient and all questions answered. History of Present Illness Primary Care Provider: Colten Kramer Patient is 31 yo EDC 02/23[birth year] who presents at 39weeks for repeat C/S. prior C/S done for FTP. otherwise uncomplicated. Allergies Allergy/AdvReac Type Severity Reaction Status Date / Time No Known Allergies Allergy Verified 02/15/22 13:52 Home Medications Medication Instructions Recorded Confirmed Type prenat.vits,seema,mch-iqme-qogrz 1 tab PO QAM 07/10/21 02/15/22 History Patient History Medical History Anxiety and depression Hx medical management (discontinued with ) History of breast disorder History of cardiac murmur As a (resolved) History of kidney stones History of ovarian cyst Surgical History H/O lithotripsy History of anesthesia reaction Cytso, laser litho, stent (05/10/19): LMA#4 at [facility]. "Anesthetic Complications: no major complications apparent" per post-op anesthesia progress note. Post-op progress note does indicate pulse ox reading of 86 (rest of recorded levels 93-99%) History of wisdom tooth extraction S/P section 02/2019 at [facility] Family History Father Dyslipidemia Hypertension Diabetes pre-dm Grandfather (Paternal) Bladder cancer Grandmother (Maternal) Colorectal cancer COPD (chronic obstructive pulmonary disease) Crohn's disease Breast cancer Mother Multiple sclerosis Denies family history of Ovarian cancer Prostate cancer Social History Smoking Status: Never smoker Second Hand Exposure: No; Hx Substance Use: No Preferred Language: Chinese Communication Ability: Effective Payroll Benefits Administrator Required: No Beliefs That Will Affect Care: None marital status: marital status details: Favian Banuelos (30) [phone] Current Living Situation: Spouse and Family Current Living Situation Comment: and child. 3 cats (FOB changing litter) current occupational status: employed current occupation: [employer] Feels Safe at Home: Yes Childhood Exposure to Second-Hand Smoke: No caffeine: No Dental Care, Regularly: Yes Seatbelt Use: always Do you think of yourself as: straight/heterosexual Gender Identity: Female Assistive Devices: Glasses Review of Systems All systems reviewed & are unremarkable except as noted in HPI & below Physical Exam Constitutional: WD/WN, vitals as above Respiratory: normal respiratory effort, lungs clear to auscultation Cardiovascular: RRR, no murmur, no edema Psychiatric: A+Ox3, euthymic affect Genitourinary: OB Exam Abdomen: + fundal height (term), + heart tones (145), + vertex and + estimated weight (9-10 pounds) Coding Level of Care Code None Diagnoses Encounter for supervision of normal in multigravida, antepartum Z34.80
[2022-02-16] MEDS ORDERED: LACTATED RINGER'S 1,000 ML IV SCH ×2 (05:45→09:32)
[2022-02-16] MEDS ORDERED: CITRIC ACID/SODIUM CITRATE 15 ML UDC PO STA (05:49)
[2022-02-16] MEDS ORDERED: ceFAZolin 2000MG 2,000 MG/15 ML SYR IV STA (05:50)
[2022-02-16 06:20] LABS: Basophils # (auto) 0.02 K/uL (0-0.2); Basophils % (auto) 0.2 %; Eosinophils # (auto) 0.05 K/uL (0-0.50); Eosinophils % (auto) 0.6 %; Hematocrit (blood only) 32.3 % (34.1-44.9); Hemoglobin 10.2 g/dl (12.0-16.0); Immature Granulocytes % (auto) 1.1 %; Lymphocytes # (auto) 2.16 K/uL (1.2-3.4); Lymphocytes % (auto) 24.5 %; Mean Corpuscular Hemoglobin 27.1 pg (25.0-34.0); Mean Corpuscular Hgb Conc 31.6 g/dL (32.0-36.0); Mean Corpuscular Volume 85.7 fL (80.0-100.0); Mean Platelet Volume 9.2 fL (9.4-12.3); Monocytes # (auto) 0.79 K/uL (0.24-0.82); Neutrophils # (auto) 5.69 K/uL (1.4-6.5); Neutrophils % (auto) 64.6 %; Platelet Count 287 K/uL (130-400); RDW Coefficient of Variation 12.8 % (11.5-14.5); RDW Standard Deviation 39.3 fL (36.4-46.3); Red Blood Count 3.77 M/uL (3.93-5.22); White Blood Count 8.81 K/ul (4.8-10.8)
[2022-02-16] MEDS ORDERED: MoRPHine SULFATE PF 1 MG/ML 10 ML AMP/VIAL ONE (07:22)
[2022-02-16] MEDS ORDERED: fentaNYL citrate 100 MCG/2 ML VIAL ONE (07:22)
[2022-02-16] MEDS ORDERED: HYDROmorphone INJ 0.5 MG/0.5 ML SYR IV PRN (07:31)
[2022-02-16] MEDS ORDERED: ONDANSETRON INJ 2 MG/ML 2 ML VIAL IV PRN (07:31)
[2022-02-16] MEDS ORDERED: MoRPHine SULFATE PF 1 MG/ML 10 ML AMP/VIAL INT SPINAL ONE (07:31)
[2022-02-16] MEDS ORDERED: LACTATED RINGER'S 500 ML IV PRN (07:31)
[2022-02-16] MEDS ORDERED: ePHEDrine sulfate 50 MG/ML AMP IV PRN (07:31)
[2022-02-16] MEDS ORDERED: NALOXONE HCL 0.08 MG in SYRINGE 1.8 ML IV PRN (07:31)
[2022-02-16] MEDS ORDERED: NALOXONE HCL 0.4 MG/1 ML VIAL/CARP IV PRN (07:31)
[2022-02-16] MEDS ORDERED: NALBUPHINE HCL INJ 10 MG/ML AMP IV PRN (07:31)
[2022-02-16] MEDS ORDERED: NALOXONE HCL 1 MG in SODIUM CHLORIDE 0.9% 1000ML 1,000 ML IV PRN (07:31)
--- NOTE | 2022-02-16 07:35 | History & Physical Bridge Note ---
Date of Service February 16, 2022 History & Physical Bridge Note I have examined the patient, reviewed the History & Physical and in the interval since the performance of the History & Physical I have noted the following changes of clinical significance: no changes noted
[2022-02-16] MEDS ORDERED: SODIUM CHLORIDE 0.9% 1000ML 1,000 ML IV SCH (07:45)
[2022-02-16] MEDS ORDERED: DC INTRASPINAL MORPHINE SCH (07:45)
[2022-02-16] MEDS ORDERED: NO NARCOTICS OR SEDATIVES SCH (07:45)
[2022-02-16] MEDS ORDERED: ONDANSETRON INJ 2 MG/ML 2 ML VIAL ONE (07:58)
[2022-02-16] MEDS ORDERED: PHENYLEPHRINE 100MCG/ML 5ML SYR ONE (07:58)
[2022-02-16] MEDS ORDERED: OXYTOCIN 10 UNITS/ML 10ML VIAL ONE (07:59)
--- NOTE | 2022-02-16 09:28 | Anesthesiology Progress Note ---
Date of Service February 16, 2022 Anesthesia Post Procedure Vital Signs Vital Signs: Temp Pulse Resp BP Pulse Ox 02/16/22 05:59 36.9 C 20 02/16/22 09:24 95 02/16/22 09:24 67 02/16/22 09:25 60 99/58 L 02/16/22 09:24 63 93 02/16/22 09:19 72 95 02/16/22 09:18 72 89 L 02/16/22 09:15 69 110/58 L 02/16/22 09:14 78 97 02/16/22 09:09 83 96 02/16/22 09:05 61 106/58 L 02/16/22 09:04 71 98 02/16/22 08:59 72 97 02/16/22 08:56 75 112/62 02/16/22 08:54 83 94 02/16/22 07:10 18 02/16/22 07:10 36.9 C 18 02/16/22 07:34 95 H 96 02/16/22 07:29 86 96 02/16/22 07:24 81 97 02/16/22 07:06 77 101/62 02/16/22 06:05 95 H 121/72 Transfer of Care Handoff Completed per policy Notes Mental Status: alert / awake / arousable Patient Amnestic to Procedure: Yes Nausea / Vomiting: adequately controlled Pain: adequately controlled Airway Patency, RR, SpO2: stable & adequate BP & HR: stable & adequate Hydration State: stable & adequate Neuraxial Anesthesia: was administered and sensory block is resolving Anesthetic Complications: no major complications apparent and Pt Satisfied with anesthetic care
[2022-02-16] MEDS ORDERED: BENZOCAINE 20% AER SPR 82.5 GM CAN EXT PRN (09:32)
[2022-02-16] MEDS ORDERED: HYDROCORTISONE ACETATE 25 MG SUPP PR PRN (09:32)
[2022-02-16] MEDS ORDERED: DIPHTHERIA/TETANUS/PERTUSSIS 0.5 ML SYR/VIAL IM ONE (09:32)
[2022-02-16] MEDS ORDERED: SENNA 8.6 MG TAB PO PRN (09:32)
[2022-02-16] MEDS ORDERED: MAGNESIUM HYDROXIDE SUSP 30 ML UDC PO PRN (09:32)
--- NOTE | 2022-02-16 09:47 | Post Operative Brief Note ---
PG Immediate Post Op with CF Date of Surgery February 16, 2022 Pre & Post Diagnosis Operation Date: 02/16/22 07:30 Pre-Op Diagnosis: IUP at 39 weeks for repeat C/S . Post-Op Diagnosis: IUP at 39 weeks for repeat C/S . I identified the patient and participated in the time-out.: Yes Procedure Operation Date: 02/16/22 07:30 Actual Procedures p Section in LD (Delivery of Baby Through Abdominal Incision) Delivery of live female child at 0808.(Not Applicable) - Maira Marcus MD, FACOG Surgeon Maira Marcus MD, FACOG Biofuels Production Associate Duyen Sawyer DO, Dhara Puente DO Estimated Blood Loss 500 Findings Consistent with Post-Op Diagnosis Specimens Specimen Description: A. Placenta-HOLD B. Cord Blood Drains Jade Catheter (Inserted after spinal by Melida Rincon RN. Draining clear yellow urine. ) Anesthesia Type Spinal Complications none Disposition Accompanied Patient To Recovery: Yes
--- NOTE | 2022-02-16 10:11 | Operative Report ---
PG Post Operative Report Pre & Post Diagnosis Operation Date: 02/16/22 07:30 Pre-Op Diagnosis: IUP at 39 weeks for repeat C/S . Post-Op Diagnosis: IUP at 39 weeks for repeat C/S . I identified the patient and participated in the time-out.: Yes Procedure Operation Date: 02/16/22 07:30 Actual Procedures p Section in LD (Delivery of Baby Through Abdominal Incision) Delivery of live female child at 0808.(Not Applicable) - Maira Marcus MD, FACOG Surgeon Maira Marcus MD, FACOG Environmental Sampling Technician Duyen Sawyer DO, Dhara Puente DO Estimated Blood Loss 500 Findings Consistent with Post-Op Diagnosis Specimens placenta to hold Drains Jade to straight drainage- clear urine at end of the case Anesthesia Type Spinal Complications none Disposition Accompanied Patient To Recovery: Yes Indications Patient is a 31-year-old 2 para 1-0-0-1 white female EDC of 02/23/2022 who presents for repeat section at 39 weeks gestation. Prior section was done for failure to progress. She is requesting repeat section with this . The procedure and its risks were reviewed with the patient and her questions were all answered to her satisfaction. Description of Procedure After the patient received adequate subarachnoid block she was prepped and draped in usual sterile fashion. A low transverse skin incision was made through her prior Scar and carried to the fascia with the same scalpel. The fascial incision was then extended with Abel scissors in transverse fashion. The rectus muscle were then bluntly sharply dissected off of the overlying fascia. The rectus muscle were bluntly divided in the midline and the underlying peritoneum also entered bluntly. Several filmy adhesions of the bladder to the fundus of the uterus were taken down with the Bovie and Metzenbaum scissors. There is also a band to the fundus from the anterior abdominal wall which was also divided with the Bovie. The bladder was then taken down off the anterior surface of the uterus and placed behind the bladder blade. The lower uterine segment was entered with a scalpel and to the level of the membranes. Membranes were ruptured for clear fluid. The uterine incision was extended transversely. The infant was delivered from the vertex presentation with moderate fundal pressure. The rest of the delivered with ease. She was vigorously crying and moving all 4 limbs. After the cord was clamped and cut, the infant was handed off to Dr. Thompson who was in attendance as tank car inspector. Placenta was then manually removed and the uterus exteriorized and covered with a clean lap sponge. The uterine cavity was explored and some retained placental membranes were removed with ring forceps. The uterine cavity was explored once more found to be free of any placental tissue or membranes. Uterus was then closed in 2 layers in a running locking imbricating fashion. Several [id number] stitches were used to secure the bleeding on the left side of the incision. At this point hemostasis was noted to be excellent. A small amount of blood and fluid were suctioned from the po sterior cul-de-sac. The uterine incision was examined once more continue to have excellent hemostasis. The uterus was then placed back inside the abdominal cavity, the gutters were checked and there was no clot or free fluid noted. The uterine incision was examined once more continue to have excellent hemostasis. The rectus muscle were then brought together on the midline with individual stitches of 0 Monocryl. The fascia was then closed in a running fashion with 0 Vicryl. After irrigating the adipose layer, the skin edges were reapproximated doing a subcuticular stitch of 4-0 Vicryl. Mother and tolerated the procedure well urine was clear at the end of the case. I attest to the content of the Intraoperative Record and any orders documented therein. Any exceptions are noted below. OB Procedure Charges 88759
[2022-02-16] MEDS: KETOROLAC 30 MG/ML VIAL IV PRN ×2 (11:15→16:38)
[2022-02-16] MEDS: diphenhydrAMINE 50 MG/ML VIAL IV PRN (11:16)
[2022-02-16] MEDS: OXYTOCIN 30 UNITS in LACTATED RINGER'S 1,000 ML IV SCH ×2 (11:20→19:39)
[2022-02-16] MEDS: SIMETHICONE 80 MG CHEW PO SCH ×3 (12:39→21:06)
[2022-02-16] MEDS: DOCUSATE SODIUM 100 MG CAP PO SCH (21:05)
[2022-02-17] MEDS: diphenhydrAMINE 50 MG/ML VIAL IV PRN (00:05)
[2022-02-17] MEDS: KETOROLAC 30 MG/ML VIAL IV PRN (00:06)
[2022-02-17] MEDS ORDERED: PROMETHAZINE HCL 25 MG in SODIUM CHLORIDE 0.9% 50 ML IV PRN (01:32)
[2022-02-17] MEDS ORDERED: KETOROLAC 30 MG/ML VIAL IV PRN (01:32)
[2022-02-17] MEDS ORDERED: diphenhydrAMINE Capsule 25 MG CAP PO PRN (01:32)
[2022-02-17] MEDS ORDERED: diphenhydrAMINE 50 MG/ML VIAL IV PRN (01:32)
[2022-02-17] MEDS ORDERED: ONDANSETRON INJ 2 MG/ML 2 ML VIAL IV PRN (01:32)
--- NOTE | 2022-02-17 05:49 | Obstetrical Progress Note ---
Date of Service <Dhara Hernandezjose de jesussachaDO - Last Filed: 02/17/22 06:32> February 17, 2022 Assessment & Plan <Dhara Hernandezjose de jesussacha - Last Filed: 02/17/22 06:32> (1) state: Patient is PPD 1 s/p repeat C section and doing well. - Eating well, feeling well - Vitals reviewed and within normal limits - Pain well controlled - OOB, removal of catheter, ambulation today as tolerated - Blood type: A+, GBS neg, rubella immune - Plan to discharge tomorrow - After discharge, [address] up with Dr. Dickens <Maira Marcus MD, FACOG - Last Filed: 02/17/22 07:23> (1) state: Subjective <Dhara Hernandezjose de jesussachaDO - Last Filed: 02/17/22 06:32> Patient is a 31 yo female is POD #1 following delivery at 39 weeks. She reports feeling well overall this morning. She denies abdominal cramping and 5/10 pain well managed on analgesics. Her catheter is still in. Tolerating regular meals overnight after she passed gas. No nausea or vomiting. She has not been OOB. Persistent lochia with some improvement this morning. Currently breast feeding. Review of Systems Denies fever, chills, sweats. Denies SOB, difficulty breathing, chest pain, palpitations. She explained a situation yesterday of chest pressure that felt like her "baby was sitting on my chest." She coughed and the sensation went away. This only happened once. Denies breast pain. Denies dysuria. Denies headache or changes in vision. Physical Exam <Dhara Hernandezdm - Last Filed: 02/17/22 06:32> General: Alert and oriented. No acute distress. CV: Regular rate and rhythm. No murmurs. Respiratory: CTA bilaterally. No rhonchi, wheezes, or crackles. No increased work of breathing. Abdomen: Positive bowel sounds. Soft, nontender, and nondistended. Uterus: Fundus firm and palpable 1 cm below umbilicus. Surgical scar clean and healing well. Lower extremities: Bilateral edema in feet. No deep calf pain. Milton's negative bilaterally. SCDs on and working. Results & Data ([facility]) <Dhara Puente DO - Last Filed: 02/17/22 06:32> Vital Signs (Past 12 Hours) Vital Signs Temp Pulse Resp BP Pulse Ox O2 Del Method 02/17/22 03:10 36.9 C 78 18 107/72 95 Room Air 02/17/22 01:15 18 95 02/17/22 00:10 18 94 02/16/22 23:15 18 93 02/17/22 00:10 37.3 C 74 18 108/69 94 Room Air 02/16/22 22:15 18 95 02/16/22 21:15 18 96 02/16/22 20:15 16 94 02/16/22 19:15 18 94 02/16/22 19:15 37.2 C 68 18 112/87 94 Room Air 02/16/22 18:10 16 99 <Maira Marcus MD, FACOG - Last Filed: 02/17/22 07:23> Co-Signing Physician Notes Resident Physician Supervision Note: I interviewed and examined the patient. Discussed with Dr. Puente and agree with findings and plan as documented in the note. Any exceptions or clarifications are listed here: [None] Documented By: Maira Marcus MD, FACOG Resident Activity Tracking <Dhara Puente DO - Last Filed: 02/17/22 06:32> Resident Involvement: Resident Care Provided Care Provided: OB Delivery
[2022-02-17] MEDS: IBUPROFEN 600 MG TAB PO PRN ×4 (06:20→21:46)
[2022-02-17] MEDS: oxyCODONE/ACETAMINOPHEN 5mg/325mg TAB PO PRN ×4 (06:21→21:46)
[2022-02-17 06:56] LABS: Basophils # (auto) 0.03 K/uL (0-0.2); Basophils % (auto) 0.4 %; Eosinophils # (auto) 0.06 K/uL (0-0.50); Eosinophils % (auto) 0.7 %; Hematocrit (blood only) 30.6 % (34.1-44.9); Hemoglobin 9.3 g/dl (12.0-16.0); Immature Granulocytes # (auto) 0.07 K/uL (0.00-0.02); Immature Granulocytes % (auto) 0.8 %; Lymphocytes # (auto) 1.68 K/uL (1.2-3.4); Mean Corpuscular Hemoglobin 27.3 pg (25.0-34.0); Mean Corpuscular Hgb Conc 30.4 g/dL (32.0-36.0); Mean Corpuscular Volume 89.7 fL (80.0-100.0); Monocytes # (auto) 0.91 K/uL (0.24-0.82); Monocytes % (auto) 10.8 %; Neutrophils # (auto) 5.67 K/uL (1.4-6.5); Neutrophils % (auto) 67.3 %; Platelet Count 239 K/uL (130-400); Red Blood Count 3.41 M/uL (3.93-5.22); White Blood Count 8.42 K/ul (4.8-10.8)
[2022-02-17] MEDS: SIMETHICONE 80 MG CHEW PO SCH ×4 (08:10→21:46)
[2022-02-17] MEDS: FERROUS SULFATE 325 MG TAB PO SCH (08:12)
[2022-02-17] MEDS: PRENATAL VITAMIN 1 TAB PO SCH (08:12)
[2022-02-17] MEDS: DOCUSATE SODIUM 100 MG CAP PO SCH ×2 (08:12→17:36)
[2022-02-17] MEDS ORDERED: bisacodyL 5 MG TABEC PO SCH (20:00)
[2022-02-18] MEDS: IBUPROFEN 600 MG TAB PO PRN ×2 (02:05→07:41)
[2022-02-18] MEDS: oxyCODONE/ACETAMINOPHEN 5mg/325mg TAB PO PRN ×2 (02:05→07:41)
[2022-02-18 06:41] LABS: Hematocrit (blood only) 28.6 % (34.1-44.9); Hemoglobin 8.9 g/dl (12.0-16.0)
[2022-02-18] MEDS: FERROUS SULFATE 325 MG TAB PO SCH (07:41)
[2022-02-18] MEDS: SIMETHICONE 80 MG CHEW PO SCH (07:41)
[2022-02-18] MEDS: DOCUSATE SODIUM 100 MG CAP PO SCH (07:41)
[2022-02-18] MEDS: PRENATAL VITAMIN 1 TAB PO SCH (07:41)
[2022-02-18] MEDS ORDERED: bisacodyL 10 MG SUPP PR PRN (08:50)
--- NOTE | 2022-02-18 09:45 | Obstetrical Progress Note ---
Date of Service February 18, 2022 Assessment & Plan (1) state: POD#2 doing well, desires DC home. Breast pumping. Reviewed PP instructions, followup 6w in office. She will be making an appointment to followup for mental health - she plans to restart meds that she had stopped during . Subjective Ambulation: ambulating normally Voiding: no voiding problems Diet Tolerance:: regular diet Lochia:: Moderate Review of Systems All systems reviewed & are unremarkable except as noted in HPI & below Physical Exam incision CDI Constitutional WD/WN, vitals as above no acute distress Respiratory normal respiratory effort Cardiovascular Rate/Rhythm: regular rate and regular rhythm Gastrointestinal (Abdomen) Inspection/Auscultation: abdomen normal to inspection; abdomen not distended Percussion/Palpation: abdomen soft Genitourinary OB Exam Abdomen: + fundal height Fundus: + firm; not tender Results & Data ([facility]) Vital Signs (Past 12 Hours) Vital Signs Temp Pulse Resp BP O2 Del Method 02/18/22 04:00 37.1 C 61 16 113/75 Room Air 02/17/22 23:34 37.0 C 73 16 101/68
== END 2022-02-18 10:45 | disposition home or self-care (01) | DRG 788 ==
LOC: 4S1 05:34 → EDSTATUS 07:30 → 4E1 11:35